=== PATIENT | female | born 1975 | race Caucasian/White ===

== ENCOUNTER 2020-01-23 07:56 | Emergency (ER) | payer MEDICAID, SELFPAY ==
[2020-01-23 08:03] VITALS: BP 201/122; PULSE 113; RESP 19; TEMP 36.6; O2SAT 98; BMI 44.9
[2020-01-23 08:19] VITALS: O2SAT 97
--- NOTE | 2020-01-23 08:27 | W.ED.GENADLT ---
HPI - General Adult General: Chief complaint: General Medical Stated complaint: Multiply complaints Time Seen by Provider: 01/23/20 07:58 Source: patient Mode of arrival: ambulatory Limitations: no limitations History of Present Illness: HPI narrative: Patient is a 44-year-old female who presents to the emergency department today with multiple medical complaints. First of all she tells me she has chronic left-sided back/sciatica pain with radiation down into her left lower extremity. She was recently seen by her PCP for this and referred to physical therapy. They are also wanting an outpatient MRI but waiting on preauthorization through her insurance. Patient tells me her pain today is a little worse than her baseline but she has no new acute neurological changes. Secondly patient tells me that she is developing an abscess to her left lower abdomen. She states she has had these pop up several times previously. She is also complaining of a lump to her right breast that is extremely painful. Again recently saw her primary care provider who is referring her for a mammogram which is currently scheduled for next month. Patient states she normally will get lumps that subside on their own monthly but reports this one is raised and painful . Lastly patient has a complaint of dental pain and possible abscess that she has noticed over the past few days. Patient has not seen a dentist in quite a while. Onset (ago): unknown (some complaints chronic; others within the last week or so) Associated symptoms: Deny chest pain, dyspnea, headache(s), malaise, nausea, rash, palpitations, syncope or vomiting Review of Systems Const: Denies: fever, chills, body aches, change in appetite, change in weight, fatigue or malaise Eyes: Denies: change in vision or blurry vision ENMT: Reports: dental pain; Denies: throat pain, enlarged tonsils, painful swallowing, oral sores/lesions or ear pain Card: Denies: chest pain, palpitations, irregular heart rhythm, edema, lightheadedness, syncope, pre-syncope or shortness of breath when lying down Resp: Denies: shortness of breath, productive cough or chest congestion GI: Denies: abdominal pain, nausea or vomiting : Denies: flank pain, difficulty urinating, painful urination, urinary frequency, urinary urgency or urinary hesitancy Musc: Reports: back pain (over L SI); Denies: neck pain Skin/Breast: Reports: sores (reports lesion to L lower abdomen/groin and lump to R breast); Denies: rash or itching Neuro: Denies: headache, numbness in extremities, weakness in extremities or changes in sensation PFSH ED PFSH: Social History Smoking and tobacco status: current every day smoker Physical Exam Const: COMMON NORMALS: no apparent distress, oriented x3, no limitations and alert NUTRITIONAL APPEARANCE: obese morbidly obese HENMT: COMMON NORMALS: normocephalic and head/scalp atraumatic HEAD & SCALP: normocephalic and atraumatic MOUTH: other (pt has decayed lower tooth 26 w/o abscess formation) THROAT: posterior oropharynx normal, tonsils normal and uvula midline Eye: COMMON NORMALS: PERRL, EOMs intact bilaterally and conjunctivae normal CONJUNCTIVA: Yes conjunctivae normal PUPIL: Yes PERRL Neck/C-Spine: COMMON NORMALS: full ROM and no lymphadenopathy Resp: COMMON NORMALS: normal respiratory effort and clear to auscultation bilaterally AUSCULTATION: clear to auscultation bilaterally Cardio: COMMON NORMALS: regular rate and regular rhythm RATE: regular rate RHYTHM: regular rhythm GI: COMMON NORMALS: normal to inspection, nondistended, normoactive bowel sounds, soft to palpation, non-tender, no hepatosplenomegaly and no masses PALPATION: Yes soft and Yes no hepatosplenomegaly Back/Pelvis: THORACIC SPINE/UPPER BACK: Yes normal to inspection and Yes thoracic ROM normal LUMBAR SPINE/LOWER BACK: No lumbar spinal tenderness and Yes straight leg raise negative bilaterally SACROILIAC JOINTS: Yes SI joint(s) abnormal (TTP over L SI) Extremity: COMMON NORMALS: normal to inspection Neuro: COMMON NORMALS: oriented x3 SENSORIUM/ORIENTATION: Yes alert Skin: OTHER: pt has several small 1cm abscesses to abdomen; she has one larger 2cm abscess to left lower abdomen w/o fluctuance or drainage or surrounding cellulitis; pt has a 1cm semi fluctuant abscess to R inferior breast with about 1cm of surrounding redness that is tender to the touch-none of these felt to be overly amenable to I&D at this time Course Vital Signs: Vital signs: Vital Signs Temperature 97.9 F 01/23/20 08:03 Pulse Rate 113 H 01/23/20 08:03 Respiratory Rate 19 H 01/23/20 08:03 Blood Pressure 201/122 01/23/20 08:03 Pulse Oximetry 97 01/23/20 08:19 Discharge Plan Discharge Patient Disposition: Home, Self-Care Clinical Impression: Abscess of multiple sites, Pain, dental, Dental caries Chronic left-sided low back pain with sciatica Qualifiers: Sciatica laterality: sciatica of left side Qualified Code(s): M54.42 - Lumbago with sciatica, left side Condition: Stable Prescriptions: New Bactrim DS 800-160 mg tablet 1 tab PO BID 7 Days Qty: 14 RF: 0 Discharge Orders: Discharge Order (Routine); Ordered 01/23/20 Ordered By: Diane Potts Referrals: Ti Hurd, KEYBOARD INSTRUMENT REPAIRER-C [Primary Care Provider] - Elmo Lee DO [Family Provider] - Discharge Diet: Usual diet Discharge Activity: Resume usual activity Patient Instructions: Dental Caries (ED), Abscess (ED), Sciatica, Staphylococcus Aureus Infection Discharge Date/Time: 01/23/20 09:08 Coding Level of Care Code ED 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
[2020-01-23] MEDS: ketorolac 60 mg/2 mL INJ IM (08:54)
[2020-01-23] MEDS: orphenadrine 30 mg/mL Inj 2 mL 60 MG IM (08:54)
[2020-01-23 09:08] VITALS: BP 168/98; PULSE 85; RESP 17; O2SAT 97
== END 2020-01-23 09:08 | disposition home or self-care (01) ==
PROVIDERS: Emergency Provider Physician Assistant; Family Provider Internal Medicine; PCP Nurse Practitioner
DX: L02.211 Cutaneous abscess of abdominal wall (principal); N61.1 Abscess of the breast and nipple; K02.9 Dental caries, unspecified; M54.42 Lumbago with sciatica, left side; E66.09 Other obesity due to excess calories; Z68.41 Body mass index [BMI] 40.0-44.9, adult; F17.200 Nicotine dependence, unspecified, uncomplicated
CPT/HCPCS: 12345; 96372; 99281; 99283; J1885; J2360

== ENCOUNTER 2020-02-27 14:50 | Outpatient (RCR) | payer MEDICAID, SELFPAY | END 2020-03-15 23:59 | disposition home or self-care (01) | LOC: SPT 14:50 | PROVIDERS: Family Provider Internal Medicine; PCP Internal Medicine; Referring Provider Internal Medicine; Visit Provider Internal Medicine | DX: G89.29 Other chronic pain (principal); M54.16 Radiculopathy, lumbar region | CPT/HCPCS: 97110; 97161; 97530 ==

== ENCOUNTER 2020-03-16 06:00 | Outpatient (RCR) | payer MEDICAID, SELFPAY | END 2020-04-15 23:59 | disposition home or self-care (01) | LOC: SPT 06:00 | PROVIDERS: Family Provider Internal Medicine; PCP Internal Medicine; Referring Provider Internal Medicine; Visit Provider Internal Medicine | DX: M51.17 Intervertebral disc disorders with radiculopathy, lumbosacral region (principal) | CPT/HCPCS: 97110 ==

== ENCOUNTER 2020-04-02 13:56 | Outpatient (CLI) | payer MEDICAID, SELFPAY ==
--- NOTE | 2020-04-02 14:05 | MM_ITS ---
WS: [id number] BILATERAL DIGITAL SCREENING MAMMOGRAPHY WITH CAD CLINICAL INFORMATION: SCREENING HISTORY: Screening mammogram. No current complaints. COMPARISON: None. TECHNIQUE: Bilateral CC and MLO views. FINDINGS: Scattered fibroglandular densities bilaterally. No suspicious focal mass, asymmetry, calcifications, or architectural distortion. No evidence of malignancy. MM/[place] [id number] IMPRESSION: BI-RADS: 1-Negative FOLLOW UP: 1 Year Follow-up Recommend return to annual screening mammography.
== END 2020-04-02 13:57 | disposition home or self-care (01) ==
LOC: RADSHAW 13:58
PROVIDERS: PCP Internal Medicine; Visit Provider Internal Medicine
DX: Z12.31 Encounter for screening mammogram for malignant neoplasm of breast (principal)
CPT/HCPCS: 77067; 99204

== ENCOUNTER 2020-04-11 12:57 | Outpatient (CLI) | payer MEDICAID, SELFPAY ==
--- NOTE | 2020-04-11 13:02 | USCV_ITS ---
Marbella Lynch Age: 44 Gender: F : 1975 Exam Date: 04/11/2020 13:41 Ordering Phys: Elmo Lee DO Technologist: Maikel Hicks [place] [facility] [place]: PAIN,SWELLING HISTORY: Lower extremity pain. PROCEDURES: Venous duplex imaging was performed in only the right lower extremity. The following venous structures were evaluated: common femoral vein, profunda vein, proximal portion of the greater saphenous vein, superficial femoral vein, and the popliteal vein. In addition, the posterior tibial and peroneal trunk were evaluated. Serial compression, augmentation maneuvers, and spectral Doppler flow evaluation were performed. FINDINGS: Normal 2-D Doppler and augmentation and compressibility throughout the lower extremity venous structures. Additional imaging through the proximal calf veins also reveals no thrombus. Limited evaluation of the greater saphenous vein is patent with no thrombus. CONCLUSIONS No DVT right lower extremity. Dr. Chanelle Resendez DO (Electronically Signed) Final Date: 12 Apr 2020 07:47 S
== END 2020-04-11 12:58 | disposition home or self-care (01) ==
PROVIDERS: PCP Internal Medicine; Visit Provider Internal Medicine
DX: M54.16 Radiculopathy, lumbar region (principal); M79.605 Pain in left leg; M79.604 Pain in right leg
CPT/HCPCS: 93971

== ENCOUNTER 2020-06-18 07:54 | Outpatient (CLI) | payer MEDICAID, SELFPAY ==
--- NOTE | 2020-06-18 07:57 | MR_ITS ---
WS: [id number] MRI LUMBAR SPINE NONCONTRAST HISTORY: LUMBAR BACK PAIN W/RADICULOPATHY COMPARISON: 10/15/[address] lumbar spine 05/28/2019 TECHNIQUE: Sagittal and axial multisequence imaging is submitted. Central shallow disc protrusion at C5-6 with mild contact on the cord. Mild increase in thoracic kyph osis. Normal lumbar alignment. Very minimal concave deformity superior endplate of T12. No marrow edema. Sm all Schmorl's node T11. Disc spaces and vertebral body heights are well-preserved. Conus terminates normally at L1-2 disc level. L1-L2: Normal. L2-L3: Normal. L3-L4: Mild annular disc bulging and mild facet and ligamentum flavum arthritis. Disc protrusion encr oaching into the LEFT foramen. Contact on the L3 nerve root. L4-L5: Mild annular disc bulging with ligamentum flavum hypertrophy and facet arthritis. Mild narrowi ng of the central canal and LEFT foramen. L5-S1: Small central disc protrusion. No significant stenosis. Paraspinal soft tissues are normal. MR/MR lumbar spine wo con* [id number] IMPRESSION: 1. No acute fractures. 2. Small LEFT foraminal disc protrusion at L3-4 with contact on the L3 nerve r oot. Increased in size since the prior MRI. 3. Mild central and LEFT foraminal narrowing at L4-5.
== END 2020-06-18 07:55 | disposition home or self-care (01) ==
LOC: RADSHAW 07:55
PROVIDERS: PCP Internal Medicine; Visit Provider Internal Medicine
DX: M54.16 Radiculopathy, lumbar region (principal); M51.26 Other intervertebral disc displacement, lumbar region
CPT/HCPCS: 72148

== ENCOUNTER → 2020-08-16 13:34 | Outpatient (BNVA) | payer MEDICAID, SELFPAY | PROVIDERS: PCP Internal Medicine; Referring Provider Internal Medicine; Visit Provider Specialist | DX: G56.03 Carpal tunnel syndrome, bilateral upper limbs (principal) | CPT/HCPCS: 95910 ==

== ENCOUNTER 2020-09-05 15:23 | Emergency (ER) | payer MEDICAID, SELFPAY ==
[2020-09-05 15:52] VITALS: BP 172/93; PULSE 110; RESP 18; TEMP 37; O2SAT 98; BMI 44.1
--- NOTE | 2020-09-05 16:54 | ED_ITS ---
HPI - Back Pain/Injury General: Chief Complaint: Back Pain/Injury Stated Complaint: back pain Time Seen by Provider: 09/05/20 16:36 History of Present Illness: HPI Narrative: 44-year-old female patient presents to the emergency department with chronic back pain. She reports back pain is worsening. She reports herniated disc in the lower back, states needs injections but insurance company would not approve procedure. States has Flexeril and Tylenol at home and is not helping with pain. She denies leg weakness, urinary or bowel incontinence. She denies recent trauma or falls MD elicited complaint: back pain Pertinent past history: prior back pain Onset (ago): day(s) (Worse today) Timing: constant and progressively worsening Severity: moderate Pain scale (0-10): 8 Quality: sharp, stabbing and aching Location: lumbar spine Radiation: buttocks (Left) and left upper leg Exacerbating factors: movement and walking Relieving factors: other (Resting) Context: while lifting, turning/twisting and bending Associated symptoms: Reports no associated symptoms; Deny abdominal pain, chills, dysuria, fever(s), nausea or vomiting Treatments prior to arrival: cold therapy, heat therapy and acetaminophen Work related injury: No Review of Systems General: Reports: 10 or more systems reviewed and unremarkable except in HPI and below Const: Denies: fever(s), chills or diaphoresis Eyes: Denies: blurry vision or eye redness ENMT: Denies: throat pain, dental pain or disequilibrium Card: Denies: chest pain, palpitations or irregular heart rhythm Resp: Denies: dyspnea, productive cough, non-productive cough or wheezing GI: Denies: abdominal pain, nausea or vomiting : Denies: difficulty voiding or dysuria Musc: Reports: back pain and extremity pain (Left posterior hip to the left upper leg); Denies: neck pain Skin/Breast: Denies: rash or pruritus Neuro: Denies: headache(s), weakness in extremities or behavioral changes Psych: Denies: anxiety or depression Alexis/Lymph: Denies: easy bruising PFSH ED PFSH: Social History (Updated 04/02/20 @ 09:15 by Hany Gonzalez LPN) Smoking and tobacco status: current every day smoker cigarettes Packs smoked per day: 1 Years cigarettes smoked: 20 Quit status (tobacco): has tried quititng Number of times tried to quit tobacco: 5 Second hand smoke exposure: No Smoking risk assessment/counseling performed?: No Current gender identity: Female Physical Exam Const: COMMON NORMALS: no acute distress, patient oriented x3, healthy appearing and alert GENERAL APPEARANCE: cooperative, comfortable and well hydrated ORIENTATION/CONSCIOUSNESS: Yes oriented to person, Yes oriented to place and Yes oriented to time HENMT: COMMON NORMALS: normocephalic, Normal external nose present and moist oral mucous membranes HEAD & SCALP: normocephalic NOSE: Normal external nose present Eye: COMMON NORMALS: Equal, round and reactive pupils present and EOMs intact bilaterally GENERAL EYE: appearance normal, both eyes and all related structures PUPIL: Yes Equal, round and reactive pupils present Neck/C-Spine: COMMON NORMALS: full ROM and no lymphadenopathy GENERAL: Yes normal visual inspection and Yes trachea midline CERVICAL SPINE: Yes cervical ROM normal Lymph: LYMPHATIC: no lymphadenopathy noted Chest: COMMONS NORMALS: normal inspection of the chest Resp: COMMON NORMALS: normal respiratory effort and clear to auscultation bilaterally AUSCULTATION: clear to auscultation bilaterally Cardio: COMMON NORMALS: regular rhythm, S1 normal heart sound present and S2 normal heart sound present RHYTHM: regular rhythm HEART SOUNDS: S1 normal heart sound present and S2 normal heart sound present GI: COMMON NORMALS: Soft to palpation and non-tender INSPECTION: Yes normal to inspection PALPATION: Yes Soft to palpation : COMMON NORMALS: Yes no CVA tenderness BLADDER/KIDNEY EXAM: Yes no CVA tenderness Back/Pelvis: COMMON NORMALS: no CVA tenderness THORACIC SPINE/UPPER BACK: Yes normal to inspection, No thoracic spinal tenderness and No paraspinal muscle spasm LUMBAR SPINE/LOWER BACK: Yes ROM limited, Yes paraspinal muscle tenderness Lumbar paraspinal muscle tenderness: left and Yes straight leg raise positive left SACROILIAC JOINTS: Yes SI joint(s) abnormal SI joint details: tender to palpation (lt), pain elicited by compression of iliac crest maneuver (left) and pain elicited by passive hyperextension of lower extremity (left) Extremity: COMMON NORMALS: normal to inspection and capillary refill normal GENERAL: Yes normal exam except as noted Neuro: COMMON NORMALS: patient oriented x3 and no focal motor deficits SENSORIUM/ORIENTATION: Yes alert, Yes oriented to person, Yes oriented to place and Yes oriented to time SPEECH: speech normal MOTOR EXAM: 5/5 motor strength present throughout Psych: COMMON NORMALS: mental status grossly normal, Normal thought process present and cooperative ACTIVITY/MOTOR BEHAVIOR: Yes appropriate eye contact THOUGHT PROCESS: Normal thought process present Skin: COMMON NORMALS: no rashes or lesions noted and turgor normal GENERAL SKIN EXAM: no rashes or lesions noted and turgor normal Course ED course: MRI from 06/18/2020 reviewed, she does not report increased pain. She will be prescribed iron and Toradol with Robaxin, and methylprednisone. Advised not to take Robaxin with Flexeril as the Flexeril is not working. She was advised to continue cool compresses alternate with warm moist heat, follow- up with her primary care provider, verbalized understanding. Vital Signs: Vital signs: Vital Signs Temperature 98.6 F 09/05/20 15:52 Pulse Rate 110 H 09/05/20 15:52 Respiratory Rate 18 09/05/20 15:52 Blood Pressure 172/93 09/05/20 15:52 Pulse Oximetry 98 09/05/20 15:52 MDM - Back Pain/Injury Imaging Data^: Other Imaging: Radiologist's impression: [facility] [address] [place] [address] Magnetic Resonance Report Signed Patient: Marbella Lynch #: [id number] : 1975Acct#:[id number] Age/Sex: 44 / FADM Date: 06/18/20 Loc: RADAWRoom/Bed: Attending Dr: Elmo Lee DO Ordering Provider/Ordering MD: Elmo Lee DO Date of Service: 06/18/20 Procedure(s): MR lumbar spine wo con* [id number] Accession Number(s): [id number] Report Number: [id number] WS: [id number] MRI LUMBAR SPINE NONCONTRAST HISTORY: LUMBAR BACK PAIN W/RADICULOPATHY COMPARISON: 10/15/[address] lumbar spine 05/28/2019 TECHNIQUE: Sagittal and axial multisequence imaging is submitted. Central shallow disc protrusion at C5-6 with mild contact on the cord. Mild increase in thoracic kyphosis. Normal lumbar alignment. Very minimal concave deformity superior endplate of T12. No marrow edema. Small Schmorl's node T11. Disc spaces and vertebral body heights are well-preserved. Conus terminates normally at L1-2 disc level. L1-L2: Normal. L2-L3: Normal. L3-L4: Mild annular disc bulging and mild facet and ligamentum flavum arthritis. Disc protrusion encroaching into the LEFT foramen. Contact on the L3 nerve root. L4-L5: Mild annular disc bulging with ligamentum flavum hypertrophy and facet arthritis. Mild narrowing of the central canal and LEFT foramen. L5-S1: Small central disc protrusion. No significant stenosis. Paraspinal soft tissues are normal. MR/MR lumbar spine wo con* [id number] IMPRESSION: 1. No acute fractures. 2. Small LEFT foraminal disc protrusion at L3-4 with contact on the L3 nerve root. Increased in size since the prior MRI. 3. Mild central and LEFT foraminal narrowing at L4-5. Dictated By:Chanelle Resendez DO Signed By:Chanelle Resendez DOSigned Date/Time:06/18/20906 DD/ Discharge Plan Discharge Patient Disposition: Home Clinical Impression: Back pain Qualifiers: Back pain location: low back pain Chronicity: chronic Back pain laterality: left Sciatica presence: with sciatica Sciatica laterality: sciatica of left side Qualified Code(s): M54.42 - Lumbago with sciatica, left side Condition: Stable Prescriptions: New Medrol (Trey) 4 mg tablets,dose pack See Rx Instructions .ROUTE .COMPLEX Qty: 21 RF: 0 Robaxin-750 750 mg tablet 750 mg PO TID Qty: 14 RF: 0 No Action amlodipine 10 mg tablet 10 mg PO DAILY RF: 0 lisinopril 20 mg tablet 20 mg PO DAILY RF: 0 metformin 500 mg tablet extended release 24 hr 500 mg PO BID RF: 0 omeprazole magnesium [Prilosec OTC] 20 mg tablet,delayed release (DR/EC) 20 mg PO DAILY RF: 0 duloxetine [Cymbalta] 30 mg capsule,delayed release(DR/EC) 30 mg PO DAILY Qty: 30 RF: 1 trazodone 50 mg tablet 100 mg PO .HS Qty: 60 RF: 1 hydroxyzine HCl 50 mg tablet 50 mg PO TID PRN (Reason: anxiety) Qty: 90 RF: 1 Discharge Orders: Discharge Order (Routine); Ordered 09/05/20 Ordered By: Krystle Chinchilla Referrals: Elmo Lee DO [Primary Care Provider] - Discharge Diet: Usual diet Discharge Activity: Limit activity as instructed Patient Instructions: Sciatica (ED), Chronic Back Pain (ED) Activity Restrictions/Additional Instructions: Limit activity, do not lift more than 10 pounds, no bending or twisting at the waist until cleared by your primary care provider Take prednisone as directed Continue cool compresses/warm moist heat as needed for pain Return to the emergency department if you develop urinary or bowel incontinence, inability to feel your left leg You may attempt [id number] use of lidocaine patches, Salonpas Discharge Date/Time: 09/05/20 17:15 Coding Level of Care Code ED Coating Engineer for Raisag Fwd Exam Comprehensive
[2020-09-05] MEDS: ketorolac 60 mg/2 mL INJ IM (17:05)
== END 2020-09-05 17:15 | disposition home or self-care (01) ==
PROVIDERS: Emergency Provider Nurse Practitioner Family; PCP Internal Medicine
DX: M54.42 Lumbago with sciatica, left side (principal); G89.29 Other chronic pain; Z79.84 Long term (current) use of oral hypoglycemic drugs; F17.210 Nicotine dependence, cigarettes, uncomplicated
CPT/HCPCS: 12345; 96372; 99281; 99283; J1885

== ENCOUNTER → 2020-10-20 13:42 | Outpatient (BNVA) | payer MEDICAID, SELFPAY | PROVIDERS: PCP Internal Medicine; Visit Provider Orthopaedic Surgery | DX: G56.03 Carpal tunnel syndrome, bilateral upper limbs (principal); Z01.812 Encounter for preprocedural laboratory examination; Z20.828 Contact with and (suspected) exposure to other viral communicable diseases | CPT/HCPCS: 87635 ==

== ENCOUNTER 2020-10-25 09:05 | Day surgery (SDC) | payer MEDICAID, SELFPAY ==
[2020-10-25 09:17] VITALS: BP 153/97; PULSE 110; RESP 20; TEMP 37.2; O2SAT 97
--- NOTE | 2020-10-25 09:36 | W.PM.OPSUD ---
Surgery/Procedure H&P Update DATE OF PROCEDURE: October 25, 2020 DATE H&P PERFORMED: 10/02/20 PREOP DIAGNOSIS: Right carpal tunnel syndrome PLANNED PROCEDURE: Operation Date: 10/25/20 10:20 Proposed Procedures p right Carpal Tunnel Release 44100 g56.01(Right) - Yaron Gruber MD
--- NOTE | 2020-10-25 09:42 | ANES.PREANE2 ---
Pre-Anesthetic Assessment Pre-Anesthetic Assessment: Height/Weight: Height 1.65 m Weight 120.202 kg Temp Pulse Resp BP Pulse Ox 99 F 110 H 20 H 153/97 97 10/25/20 09:17 10/25/20 09:17 10/25/20 09:17 10/25/20 09:17 10/25/20 09:17 Preop Diagnosis: Right carpal tunnel syndrome Proposed Procedure: Operation Date: 10/25/20 10:20 Proposed Procedures p right Carpal Tunnel Release [id number] g56.01(Right) - Yaron Gruber MD Was Beta Vaughn taken within 24 hours: N/A Last intake: Intake Last Liquid Date 10/25/20 Last Liquid Time 06:00 Last Solid Date 10/24/20 Last Solid Time 22:00 Social: Social History: Tobacco Exam: Pre-Anes Outpt Exam: alert, oriented x 3, clear to auscultation bilaterally and regular rate & rhythm Airway: Submandibular: WNL Cervical ROM: WNL MP: 3 History/ROS: No significant history except as noted Pulmonary: Pulmonary: Sleep apnea (noncompliant) CV/HEM: CV/HEM: HTN : : None reported Hepatic: Hepatic: None reported GI: GI: GERD Metabolic: Metabolic: DM and Morbid obesity Musc/skel: Musc/skel: Fibromyalgia and Lower Back Pain (sciatica) Anesthetic Plan: ASA status: 2 Anesthesia: Anesthesia Evaluation and Regional (specify below) (courtney block) Risk of > 500 ml blood loss (7ml/kg in children): No PFSH Anesthesia PFSH: Social History Smoking and tobacco status: current every day smoker cigarettes Packs smoked per day: 1 Years cigarettes smoked: 20 Quit status (tobacco): has tried quititng Number of times tried to quit tobacco: 5 Second hand smoke exposure: No Smoking risk assessment/counseling performed?: No Current gender identity: Female Data Anesthesia Cardiac Studies: No Data to Display
[2020-10-25] MEDS: sodium chloride 0.9% 1,000 ML 30 ML IV (09:53)
[2020-10-25 10:30] VITALS: BP 111/71; PULSE 101; RESP 18; TEMP 36.8; O2SAT 95
--- NOTE | 2020-10-25 10:31 | PM.OP ---
Operative Report Date of procedure: October 25, 2020 Pre-op Diagnosis: Right carpal tunnel syndrome Post-op diagnosis: same Post-op Findings: Same Procedure Done: Right carpal tunnel release Pathology: none sent Surgeon: Yaron Gruber Anesthesia: Nerve Block (Olvin block) Estimated blood loss (mL): 5 Tourniquet time (min): 29 Findings: No masses or space-occupying lesions were seen within the carpal tunnel Condition: stable Brief History: The patient is a 45-year-old female with right carpal tunnel syndrome. She failed conservative treatment including injections and bracing is admitted for elective right carpal tunnel release Procedure: Patient was taken to the operating room and anesthesia provided by the anesthesia service. She was prepped and draped with the arm exposed. A timeout was performed. A 3 cm long incision was made in line with the fourth ray from the distal edge of the carpal tunnel extending proximally. The subcutaneous fat and palmar fascia was divided with a scalpel blade. Under loupe magnification the ulnar neurovascular bundle was identified distally. A hemostat could be passed under the transverse carpal ligament allowing the distal 25% to be divided. A slotted guide was then passed beneath the transverse carpal ligament and the middle 50% divided. Blunt scissors were then passed over the guide freeing the proximal ligament. The tourniquet was deflated. Hemostasis provided with electrocautery. Wound edges were infiltrated with 10 cc of a half percent Marcaine solution. Skin edges were reapproximated with 3-0 Prolene. Sterile dressings were applied. The patient was taken to the recovery room in stable condition
[2020-10-25] MEDS: HYDROcodone-acetaminophen 5-325 mg Tablet 1 TAB PO (10:58)
[2020-10-25 11:03] VITALS: BP 118/70; PULSE 92; RESP 18; TEMP 36.7; O2SAT 96
== END 2020-10-25 11:15 | disposition home or self-care (01) ==
PROVIDERS: PCP Internal Medicine; Visit Provider Orthopaedic Surgery
PROC: (CPT 64721; principal; 2020-10-25 10:20)
DX: G56.01 Carpal tunnel syndrome, right upper limb (principal); G47.30 Sleep apnea, unspecified; I10 Essential (primary) hypertension; K21.9 Gastro-esophageal reflux disease without esophagitis; E11.9 Type 2 diabetes mellitus without complications; E66.01 Morbid (severe) obesity due to excess calories; Z68.41 Body mass index [BMI] 40.0-44.9, adult; M79.7 Fibromyalgia; F17.210 Nicotine dependence, cigarettes, uncomplicated; Z79.84 Long term (current) use of oral hypoglycemic drugs
CPT/HCPCS: 64721; 12345; J0690; J2405; J2704; J3010; J3490; J7030

== ENCOUNTER → 2021-07-17 09:37 | Outpatient (BNVA) | payer MEDICAID, SELFPAY | PROVIDERS: PCP Internal Medicine; Visit Provider Orthopaedic Surgery | DX: M79.641 Pain in right hand (principal) | CPT/HCPCS: 73140 ==

== ENCOUNTER → 2021-10-24 09:50 | Outpatient (BNVA) | payer MEDICAID, SELFPAY | PROVIDERS: PCP Internal Medicine; Visit Provider Orthopaedic Surgery | DX: Z01.812 Encounter for preprocedural laboratory examination (principal); Z20.822 Contact with and (suspected) exposure to COVID-19 | CPT/HCPCS: 87635 ==

== ENCOUNTER 2021-10-31 06:41 | Day surgery (SDC) | payer MEDICAID, SELFPAY ==
[2021-10-30 12:20] VITALS: BMI 44.9
[2021-10-31 07:10] VITALS: BP 184/97; PULSE 111; RESP 20; TEMP 36.7; O2SAT 98
[2021-10-31 07:23] LABS: Glucose Point of Care 275 mg/dL (70-110)
--- NOTE | 2021-10-31 07:33 | ANES.PREANE2 ---
Pre-Anesthetic Assessment Pre-Anesthetic Assessment: Height/Weight: Height 1.65 m Weight 122.47 kg Temp Pulse Resp BP Pulse Ox 98.1 F 111 H 20 H 184/97 98 10/31/21 07:10 10/31/21 07:10 10/31/21 07:10 10/31/21 07:10 10/31/21 07:10 Preop Diagnosis: Trigger Thumb, right Proposed Procedure: Operation Date: 10/31/21 08:15 Proposed Procedures p Right Thumb Trigger Finger Release [id number] M65.319(Right) - Yaron Gruber MD Was Beta Vaughn taken within 24 hours: N/A Was Clonidine taken within 24 hours: N/A Last intake: Intake Last Liquid Date 10/30/21 Last Liquid Time 11:55 Last Solid Date 10/30/21 Last Solid Time 23:00 Social: Social History: Tobacco and No alcohol Exam: Pre-Anes Outpt Exam: alert, oriented x 3 and regular rate & rhythm Airway: Submandibular: WNL Cervical ROM: WNL MP: 2 Dentition: Chipped Additional comments: Poor dentition, missing several Pulmonary: Pulmonary: COPD CV/HEM: CV/HEM: HTN GI: GI: GERD Metabolic: Metabolic: DM and Morbid obesity Neuropsych: Neuropsych: Anxiety and Depression Anesthetic Plan: ASA status: 3 Anesthesia: MAC and Regional (specify below) (Olvin acosta) Risk of > 500 ml blood loss (7ml/kg in children): No PFSH Anesthesia PFSH: Social History Quit status (tobacco): has tried quititng Number of times tried to quit tobacco: 5 Second hand smoke exposure: No Smoking risk assessment/counseling performed?: No Current gender identity: Female Data Anesthesia Other Labs: Laboratory Results - last 48 hr 10/31/21 07:19 POC Glucose 275 H Cardiac Studies: No Data to Display
[2021-10-31] MEDS: sodium chloride 0.9% 1,000 ML 30 ML IV (07:36)
--- NOTE | 2021-10-31 08:12 | W.PM.OPSUD ---
Surgery/Procedure H&P Update DATE OF PROCEDURE: October 31, 2021 DATE H&P PERFORMED: 10/09/21 PREOP DIAGNOSIS: Trigger Thumb, right PLANNED PROCEDURE: Operation Date: 10/31/21 08:15 Proposed Procedures p Right Thumb Trigger Finger Release [id number] M65.319(Right) - Yaron Grbuer MD
[2021-10-31 08:58] VITALS: BP 172/88; PULSE 97; RESP 16; TEMP 36.3; O2SAT 98
[2021-10-31 09:03] VITALS: BP 163/93; PULSE 97; RESP 16; O2SAT 94
--- NOTE | 2021-10-31 09:04 | PM.OP ---
Operative Report Date of procedure: October 31, 2021 Pre-op Diagnosis: Trigger Thumb, right Post-op diagnosis: same Post-op Findings: Same Procedure Done: Right trigger thumb release Pathology: none sent Surgeon: Yaron Gurber Anesthesia: Nerve Block ([place] block) Tourniquet time (min): 20 Condition: stable Disposition: PACU Procedure: The patient's hand was prepped in the usual fashion. A timeout was performed. I transverse incision was made over the level of a 1 dmitry of the right thumb in the palm over a distance of approximately a centimeter and a half. Under loupe magnification blunt dissection was accomplished down to the A1 dmitry. With adequate visualization a scalpel was used to divide the central 8 mm of that structure. Blunt scissors were then used to extend the release approximately 5 mm proximally and 5 mm distally. Tendons were pulled the road and inspected to assure there health. Skin edges were infiltrated with 4 cc of 0.5%n Marcaine. The skin edges were closed with 3-0 Prolene compressive dressings were applied.
[2021-10-31 09:08] VITALS: BP 161/93; PULSE 101; RESP 18; TEMP 36.3; O2SAT 98
[2021-10-31 09:38] VITALS: BP 165/84; PULSE 98; RESP 18; TEMP 36.6; O2SAT 96
[2021-10-31] MEDS: HYDROcodone-acetaminophen 5-325 mg Tablet 1 TAB PO (09:40)
--- NOTE | 2021-10-31 14:17 | ANE.PACU2 ---
Inpatient post-anesthesia follow up: Airway intact: Yes Vital signs: Temperature 97.9 F Pulse Rate 98 Respiratory Rate 18 Blood Pressure 165/84 Pulse Oximetry 96 Oxygen Delivery Me thod Room Air Oxygen Flow Rate 10 Fraction of Inspir ed Oxygen Hydration adequate: Yes Nausea and vomiting: No Pain level: 2 Mental status: Baseline
== END 2021-10-31 09:45 | disposition home or self-care (01) ==
PROVIDERS: PCP Internal Medicine; Visit Provider Orthopaedic Surgery
PROC: (CPT 26055; principal; 2021-10-31 08:05)
DX: M65.311 Trigger thumb, right thumb (principal); J44.9 Chronic obstructive pulmonary disease, unspecified; I10 Essential (primary) hypertension; K21.9 Gastro-esophageal reflux disease without esophagitis; E11.9 Type 2 diabetes mellitus without complications; E66.01 Morbid (severe) obesity due to excess calories; Z68.41 Body mass index [BMI] 40.0-44.9, adult; F17.210 Nicotine dependence, cigarettes, uncomplicated
CPT/HCPCS: 26055; 36416; 82962; J0690; J2250; J2704; J3010; J3490; J7030

== ENCOUNTER 2023-01-16 19:30 | Emergency (ER) | payer MEDICAID, SELFPAY ==
[2023-01-16 19:31] VITALS: BP 134/85; PULSE 101; RESP 22; TEMP 36.4; O2SAT 99; BMI 39.9
[2023-01-16 19:41] VITALS: BP 134/85; PULSE 92; RESP 26; O2SAT 97
--- NOTE | 2023-01-16 19:42 | ECG_ITS ---
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 Measurements Intervals [place] Rate: 91 P: 42 MD: 122 QRS: 75 QRSD: 88 T: 68 QT: 357 QTc: 441 Interpretive Statements SINUS RHYTHM Compared to ECG 08/24/2019 08:29:45 Sinus tachycardia no longer present Electronically Signed On 01-16-2023 21:47:45 EXPERIMENTAL MACHINING LAB MANAGER by Carolynn Sandoval M.D. [id number]
--- NOTE | 2023-01-16 19:43 | XRR_ITS ---
PROCEDURE INFORMATION: Exam: XR Chest Exam date and time: 01/16/2023 7:47 PM Age: 47 years old Clinical indication: Shortness of breath; Additional info: Chest pain TECHNIQUE: Imaging protocol: Radiologic exam of the chest. Views: 1 view. COMPARISON: CR XR chest 1V [id number] 08/24/2019 8:17 AM FINDINGS: Lungs: Unremarkable. No consolidation. Pleural spaces: Unremarkable. No pleural effusion. No pneumothorax. Heart/Mediastinum: Unremarkable. No cardiomegaly. Bones/joints: Unremarkable. XR/XR chest 1V portable [id number] IMPRESSION: No acute findings.
[2023-01-16 19:55] LABS: Basophils # 0.2 10^3/uL (0.0-0.1); Eosinophils # 0.4 10^3/uL (0.0-0.8); Eosinophils % 2.1 %; Hematocrit 46.1 % (37.0-47.0); Hemoglobin 15.6 g/dL (11.5-15.3); Lymphocytes # 4.4 10^3/uL (0.8-4.8); Lymphocytes % 26.9 %; Mean Corpuscular HGB Conc 33.8 g/dL (30.0-36.0); Mean Corpuscular Hemoglobin 29.6 pg (28.0-34.0); Mean Corpuscular Volume 87.5 fl (81-99); Mean Platelet Volume 13.4 fL (7.4-10.4); Monocytes # 0.8 10^3/uL (0.2-0.9); Monocytes % 4.8 %; Neutrophils # 10.53 10^3/uL (1.8-7.7); Neutrophils % 64.8 %; Nucleated Red Blood Cells % 0 %; Platelet Count 273 10^3/cmm (130-400); Red Blood Count 5.27 10^6/uL (4.1-5.3); Red Cell Distribution Width 13.9 % (12.1-15.1); White Blood Count 16.3 10^3/uL (4.0-10.0)
[2023-01-16] MEDS: LORazepam 2 mg/mL INJ 1 mL IVP (19:59)
[2023-01-16 20:00] VITALS: BP 144/83; PULSE 89; RESP 25; O2SAT 100
[2023-01-16 20:07] LABS: Troponin(5th) Baseline 10 ng/L (0-10)
[2023-01-16 20:09] LABS: Alanine Aminotransferase 28 U/L (0-33); Albumin Level 4.7 g/dL (3.5-5.2); Alkaline Phosphatase 162 U/L (35-105); Aspartate Amino Transferase 21 U/L (0-32); Blood Urea Nitrogen 7 mg/dL (6-20); Calcium 10.4 mg/dL (8.5-10.5); Carbon Dioxide 22 mmol/L (22-29); Chloride 97 mmol/L (98-107); Creatinine Clr Calc Pharmacy 143.7919; Globulin 2.9 g/dL (1.3-4.6); Glomerular Filtration Rate 107.6 mL/min (90-130); Glucose 133 mg/dL (65-115); Lipase 25 U/L (13-60); Osmolality Calculated 288 mOsm/kg (285-295); Sodium 139 mmol/L (136-145); Total Bilirubin 0.4 mg/dL (0.15-1.2); Total Protein 7.6 g/dL (6.6-8.7)
--- NOTE | 2023-01-16 20:13 | ED_ITS ---
HPI - Anxiety General: Chief Complaint: Anxiety Stated Complaint: CP Time Seen by Provider: 01/16/23 19:42 Source: patient and family Mode of arrival: EMS History of Present Illness: 47-year-old female who comes in complaining of c hest pain. The pain started 1 hour prior to arrival. She describes it as feeling like there is an elephant sitting on her chest. She also has associated shortness of breath and nausea. She has a history of anxiety and has been under more stress. She states this feels different than her typical anxiety attacks. She was given aspirin and nitro by EMS with some improvement but now complains of a severe headache as well as back pain which she has had in the past. No prior cardiac history. She has a history of hypertension, diabetes. She also has a history of acid reflux. No prior cardiac history. Currently she rates her pain 8 out of 10, she is crying and extremely anxious, hyperventilating. Review of Systems Narrative: See HPI PFSH ED PFSH: Social History Quit status (tobacco): has tried quititng Number of times tried to quit tobacco: 5 Second hand smoke exposure: No Smoking risk assessment/counseling performed?: No Current gender identity: Female Physical Exam Const: OTHER: Patient is extremely anxious, crying, hyperventilating HENMT: COMMON NORMALS: normocephalic, atraumatic and moist oral mucous membranes HEAD & SCALP: normocephalic and atraumatic Neck/C-Spine: COMMON NORMALS: supple Resp: OTHER: Tachypneic, breath sounds are clear bilaterally. Cardio: OTHER: Tachycardic, normal heart tones GI: OTHER: Mild tenderness in the left upper quadrant. No rebound or guarding. Extremity: OTHER: No swelling or tenderness, negative Homans Course ED course: Patient's been evaluated in the emergency department. She is was given Ativan 2 mg IV with resolution of her chest pain. She was still complaining of a headache and back pain so she subsequently was given IV morphine for the headache that she got from getting the nitro. Her EKG shows no acute ischemic changes. Her initial troponin is 10. She does have a slightly elevated white blood cell count of 16.3. No infiltrate on her chest x-ray. Alkaline phosphatase is slightly elevated at 162. The patient has had a previous cholecystectomy. AST, ALT, bilirubin and lipase are all normal. At this time the patient is resting comfortably. Reevaluation(s): Reevaluation #1: Patient is resting comfortably. Pain is resolved. Waiting results of 2-hour troponin. Time: 21:41 Reevaluation #2: Repeat 2-hour troponin is 9.81 essentially unchanged from the initial troponin of 10. Patient is resting comfortably. Suspect that her pain was primarily related to anxiety. Certainly there may have been a component of acid reflux. I am going to have her increase her Prilosec to twice daily. I am giving her Ativan 1 mg to take 1 every 6-8 hours as needed for severe anxiety. I recommended she contact her primary care doctor next week for follow-up in regards to ongoing anxiety medication management. She has been instructed to return to the ER if her symptoms return and worsen Vital Signs: Vital signs: Vital Signs Temperature 97.5 F L 01/16/23 19:31 Pulse Rate 89 01/16/23 20:00 Respiratory Rate 14 01/16/23 20:22 Blood Pressure 144/83 01/16/23 20:00 Pulse Oximetry 100 01/16/23 20:00 MDM - Anxiety Medical Decision Making 47-year-old female with history of diabetes and hypertension who presents with chest pain. Upon arrival, she is extremely anxious, hyperventilating. She was given nitro by EMS which helped her chest pain to some degree. Upon arrival here, she is complaining of chest pain back pain and a headache. Differential includes anxiety, acid reflux, angina, chest wall pain, esophageal spasm, pancreatitis Medical Records I reviewed the patient's medical records. Lab Data I reviewed the patient's lab results. 01/16/23 19:43 01/16/23 19:43 Radiology Impressions Chest X-Ray 01/16/23 19:43 IMPRESSION: No acute findings. Laboratory Results WBC 16.3 10^3/uL (4.0-10.0) H 01/16/23 19:43 RBC 5.27 10^6/uL (4.1-5.3) 01/16/23 19:43 Hgb 15.6 g/dL (11.5-15.3) H 01/16/23 19:43 Hct 46.1 % (37.0-47.0) 01/16/23 19:43 MCV 87.5 fl (81-99) 01/16/23 19:43 MCH 29.6 pg (28.0-34.0) 01/16/23 19:43 MCHC 33.8 g/dL (30.0-36.0) 01/16/23 19:43 RDW 13.9 % (12.1-15.1) 01/16/23 19:43 Plt Count 273 10^3/cmm (130-400) 01/16/23 19:43 MPV 13.4 fL (7.4-10.4) H 01/16/23 19:43 Neut % (Auto) 64.8 % 01/16/23 19:43 Lymph % (Auto) 26.9 % 01/16/23 19:43 Petroleum % (Auto) 4.8 % 01/16/23 19:43 Eos % (Auto) 2.1 % 01/16/23 19:43 Baso % (Auto) 1.0 % 01/16/23 19:43 Neut # (Auto) 10.53 10^3/uL (1.8-7.7) H 01/16/23 19:43 Lymph # (Auto) 4.4 10^3/uL (0.8-4.8) 01/16/23 19:43 Petroleum # (Auto) 0.8 10^3/uL (0.2-0.9) 01/16/23 19:43 Eos # (Auto) 0.4 10^3/uL (0.0-0.8) 01/16/23 19:43 Baso # (Auto) 0.2 10^3/uL (0.0-0.1) H 01/16/23 19:43 Nucleated RBC % (auto) 0 % 01/16/23 19:43 Nucleated RBCs # 0.0 /100WBC 01/16/23 19:43 Sodium 139 mmol/L (136-145) 01/16/23 19:43 Potassium 4.0 mmol/L (3.5-5.1) 01/16/23 19:43 Chloride 97 mmol/L (98-107) L 01/16/23 19:43 Carbon Dioxide 22 mmol/L (22-29) 01/16/23 19:43 Anion Gap 24.0 (5-19) H 01/16/23 19:43 BUN 7 mg/dL (6-20) 01/16/23 19:43 Creatinine 0.6 mg/dL (0.5-0.9) 01/16/23 19:43 GFR Calculation 107.6 mL/min (90-130) 01/16/23 19:43 Glucose 133 mg/dL (65-115) H 01/16/23 19:43 Calculated Osmolality 288 mOsm/kg (285-295) 01/16/23 19:43 Calcium 10.4 mg/dL (8.5-10.5) 01/16/23 19:43 Total Bilirubin 0.4 mg/dL (0.15-1.2) 01/16/23 19:43 AST 21 U/L (0-32) 01/16/23 19:43 ALT 28 U/L (0-33) 01/16/23 19:43 Alkaline Phosphatase 162 U/L (35-105) H 01/16/23 19:43 Troponin T Baseline 10 ng/L (0-10) 01/16/23 19:43 Troponin T 120 Minute 9.81 ng/L (0-10) 01/16/23 21:04 Total Protein 7.6 g/dL (6.6-8.7) 01/16/23 19:43 Albumin 4.7 g/dL (3.5-5.2) 01/16/23 19:43 Globulin 2.9 g/dL (1.3-4.6) 01/16/23 19:43 Lipase 25 U/L (13-60) 01/16/23 19:43 EKG Data EKG 1: I personally reviewed and interpreted this EKG as follows: EKG interpretation date: 01/16/23 EKG interpretation time: 19:30 Ischemic changes: other (No ST segment elevation or depression. No acute ischemic changes normal-appearing EKG) Interpretation: Chest X-Ray 01/16/23 19:43 IMPRESSION: No acute findings. Other EKG comments: Chest X-Ray 01/16/23 19:43 IMPRESSION: No acute findings. EKG 2: I personally reviewed and interpreted this EKG as follows: EKG interpretation date: 01/16/23 EKG interpretation time: 21:51 Ischemic changes: other (Normal EKG, no acute ST segment elevation or depression) Interpretation: Chest X-Ray 01/16/23 19:43 IMPRESSION: No acute findings. Other EKG comments: Chest X-Ray 01/16/23 19:43 IMPRESSION: No acute findings. Discharge Plan Discharge Patient Disposition: Home Clinical Impression: Acute anxiety, Chest pain Condition: Stable Prescriptions: New Ativan 1 mg tablet 1 mg PO Q6H PRN (Reason: anxiety) Qty: 10 0RF No Action gabapentin 100 mg capsule 100 mg PO TID cyclobenzaprine 10 mg tablet 10 mg PO TID PRN (Reason: Pain) hydrocodone-acetaminophen 5-325 mg tablet 1 tab PO Q4H 7 Days Qty: 42 0RF lisinopril 20 mg tablet 20 mg PO DAILY metformin 500 mg tablet extended release 24 hr 500 mg PO BID omeprazole magnesium [Prilosec OTC] 20 mg tablet,delayed release (DR/EC) 20 mg PO DAILY hydrochlorothiazide 25 mg tablet 25 mg PO DAILY bupropion HCl 100 mg tablet 100 mg PO BID Discharge Orders: Discharge ED (Routine); Ordered 01/16/23 Ordered By: Dalia Serrano Referrals: Elmo Lee DO [Physician] - Discharge Diet: Advance as tolerated Discharge Activity: Resume usual activity Patient Instructions: Chest Pain (ED), Anxiety (ED), Opioid Safety, Pain Management Activity Restrictions/Additional Instructions: Increase your Prilosec to twice daily. Take the Ativan every 6-8 hours as needed for anxiety. Continue your other regular medications. Return for symptoms worsen. 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
[2023-01-16 20:22] VITALS: RESP 14
[2023-01-16] MEDS: morphine 4 mg/mL SDV 1 mL IVP (20:22)
--- NOTE | 2023-01-16 21:43 | ECG_ITS ---
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 Measurements Intervals [place] Rate: 90 P: 31 MI: 130 QRS: 61 QRSD: 90 T: 47 QT: 371 QTc: 455 Interpretive Statements SINUS RHYTHM Compared to ECG 01/16/2023 19:42:37 No significant changes Electronically Signed On 01-16-2023 22:01:50 CONTENT COORDINATOR by Carolynn Sandoval M.D. [id number]
[2023-01-16 21:46] LABS: Troponin 5 2HR 9.81 ng/L (0-10)
[2023-01-16 22:00] VITALS: BP 120/84; PULSE 95; RESP 13; O2SAT 95
[2023-01-16] MEDS: ondansetron 2 mg/ML SDV 2 mL 4 MG IVP (22:18)
[2023-01-16 23:49] LABS: Troponin 5 2HR Delta -0.19 ABS# (0-10)
== END 2023-01-16 22:24 | disposition home or self-care (01) ==
PROVIDERS: Emergency Provider Emergency Medicine; PCP Family Medicine
DX: R07.9 Chest pain, unspecified (principal); F41.9 Anxiety disorder, unspecified; Z79.84 Long term (current) use of oral hypoglycemic drugs; E11.9 Type 2 diabetes mellitus without complications; I10 Essential (primary) hypertension
CPT/HCPCS: 36415; 71045; 80053; 83690; 84484; 85025; 93005; 96374; 96375; 99285; J2060; J2270; J2405

== ENCOUNTER 2023-10-19 17:05 | Emergency (ER) | payer MEDICAID, SELFPAY ==
[2023-10-19 17:08] VITALS: BP 131/89; PULSE 89; RESP 18; TEMP 36.6; O2SAT 98; BMI 38.2
--- NOTE | 2023-10-19 17:32 | ED_ITS ---
HPI - General Adult 2 General: Chief complaint: General Medical Stated complaint: body aches Time Seen by Provider: 10/19/23 17:19 Source: patient and EMS Mode of arrival: EMS Limitations: no limitations History of Present Illness: 48-year-old female has a history of fibr omyalgia states she had no work yesterday bring up [employer] stuff thinks she overdone it because she been having severe pain yesterday and today. States she hurts all over when asked where her pain is worse she states she hurts all over hips back legs arms head. Denies any injuries denies any fever. Associated symptoms: Reports headache(s); Deny chest pain, dyspnea, nausea, rash or vomiting Review of Systems 2 Const: Reports: body aches; Denies: fever(s) or chills Eyes: Denies: eye discomfort ENMT: Denies: throat pain or dental pain Card: Denies: chest pain Resp: Denies: dyspnea GI: Denies: abdominal pain, nausea, vomiting or diarrhea Musc: Reports: neck pain, back pain and extremity pain Skin/Breast: Denies: rash Neuro: Reports: headache(s) PFSH ED 2 PFSH: Social History Quit status (tobacco/nicotine): has tried quititng Number of times tried to quit tobacco: 5 Second hand smoke exposure: No Current gender identity: Female Physical Exam 2 Const: COMMON NORMALS: no acute distress, patient oriented x3 and healthy appearing HENMT: COMMON NORMALS: normocephalic and atraumatic HEAD & SCALP: n ormocephalic and atraumatic Eye: COMMON NORMALS: Equal, round and reactive pupils present and EOMs intact bilaterally PUPIL: Yes Equal, round and reactive pupils present Neck/C-Spine: COMMON NORMALS: full ROM and supple Chest: COMMONS NORMALS: normal inspection of the chest and normal palpation of entire chest wall Resp: COMMON NORMALS: normal respiratory effort, No retractions, No use of accessory muscles and clear to auscultation bilaterally AUSCULTATION: clear to auscultation bilaterally Cardio: COMMON NORMALS: regular rate, regular rhythm and No murmurs present (Cardio) RATE: regular rate RHYTHM: regular rhythm GI: COMMON NORMALS: Normal to inspection, nondistended, normoactive bowel sounds present, Soft to palpation, non-tender and no masses PALPATION: Yes Soft to palpation Extremity: COMMON NORMALS: normal to inspection and full ROM Neuro: COMMON NORMALS: patient oriented x3, moves all extremities and no focal motor deficits Psych: COMMON NORMALS: mental status grossly normal, Normal thought process present and cooperative THOUGHT PROCESS: Normal thought process present Skin: COMMON NORMALS: no rashes or lesions noted and no wounds GENERAL SKIN EXAM: no rashes or lesions noted Course 2 Vital Signs: Vital signs: Vital Signs Temperature 97.9 F 10/19/23 17:08 Pulse Rate 95 10/19/23 18:47 Respiratory Rate 16 10/19/23 18:47 Blood Pressure 112/65 10/19/23 18:47 Pulse Oximetry 96 10/19/23 18:47 Oxygen Delivery Me thod Room Air 10/19/23 17:46 MDM - General Adult Medical Decision Making Patient presents here with myalgias blood work here is normal she feels much improved after pain meds she is stable for discharge she is to follow-up with PCP and return if worsening. Medical Records I reviewed the patient's medical records. Lab Data I reviewed the patient's lab results. 10/19/23 17:40 10/19/23 17:40 Laboratory Results WBC 4.72 10^3/uL (3.29-11.43) 10/19/23 17:40 RBC 4.53 10^6/uL (3.85-5.65) 10/19/23 17:40 Hgb 13.20 g/dL (11.27-16.99) 10/19/23 17:40 Hct 40.1 % (36-47) 10/19/23 17:40 MCV 88.5 fl (85-98) 10/19/23 17:40 MCH 29.1 pg (27-33) 10/19/23 17:40 MCHC 32.9 g/dL (30-55) 10/19/23 17:40 RDW 14.2 % (12.1-15.1) 10/19/23 17:40 Plt Count 213 10^3/cmm (157-399) 10/19/23 17:40 MPV 12.6 fL (7.4-10.4) H 10/19/23 17:40 Neut % (Auto) 76.5 % 10/19/23 17:40 Lymph % (Auto) 7.6 % 10/19/23 17:40 [place] % (Auto) 11.9 % 10/19/23 17:40 Eos % (Auto) 1.5 % 10/19/23 17:40 Baso % (Auto) 1.9 % 10/19/23 17:40 Neut # (Auto) 3.61 10^3/uL (1.8-7.7) 10/19/23 17:40 Lymph # (Auto) 0.4 10^3/uL (0.8-4.8) L 10/19/23 17:40 [place] # (Auto) 0.6 10^3/uL (0.2-0.9) 10/19/23 17:40 Eos # (Auto) 0.1 10^3/uL (0.0-0.8) 10/19/23 17:40 Baso # (Auto) 0.1 10^3/uL (0.0-0.1) 10/19/23 17:40 Nucleated RBC % (auto) 0 % 10/19/23 17:40 Nucleated RBCs # 0.0 /100WBC 10/19/23 17:40 Sodium 136 mmol/L (136-145) 10/19/23 17:40 Potassium 3.8 mmol/L (3.5-5.1) 10/19/23 17:40 Chloride 102 mmol/L (98-107) 10/19/23 17:40 Carbon Dioxide 19 mmol/L (22-29) L 10/19/23 17:40 Anion Gap 18.8 (5-19) 10/19/23 17:40 BUN 8 mg/dL (6-20) 10/19/23 17:40 Creatinine 0.7 mg/dL (0.5-0.9) 10/19/23 17:40 GFR Calculation 89.7 mL/min (90-130) L 10/19/23 17:40 Glucose 162 mg/dL (65-115) H 10/19/23 17:40 Calculated Osmolality 284 mOsm/kg (285-295) L 10/19/23 17:40 Calcium 8.9 mg/dL (8.5-10.5) 10/19/23 17:40 Total Bilirubin 0.4 mg/dL (0.15-1.2) 10/19/23 17:40 AST 37 U/L (0-32) H 10/19/23 17:40 ALT 40 U/L (0-33) H 10/19/23 17:40 Alkaline Phosphatase 98 U/L (35-105) 10/19/23 17:40 Total Protein 6.8 g/dL (6.6-8.7) 10/19/23 17:40 Albumin 3.8 g/dL (3.5-5.2) 10/19/23 17:40 Globulin 3.0 g/dL (1.3-4.6) 10/19/23 17:40 No radiology studies performed this visit Discharge Plan Discharge Patient Disposition: Home Clinical Impression: Myalgia Condition: Stable Prescriptions: New Naprosyn 500 mg tablet 500 mg PO BID PRN (Reason: pain) Qty: 20 0RF No Action gabapentin 100 mg capsule 100 mg PO TID cyclobenzaprine 10 mg tablet 10 mg PO TID PRN (Reason: Pain) hydrocodone-acetaminophen 5-325 mg tablet 1 tab PO Q4H 7 Days Qty: 42 0RF lisinopril 20 mg tablet 20 mg PO DAILY metformin 500 mg tablet extended release 24 hr 500 mg PO BID omeprazole magnesium [Prilosec OTC] 20 mg tablet,delayed release (DR/EC) 20 mg PO DAILY hydrochlorothiazide 25 mg tablet 25 mg PO DAILY bupropion HCl 100 mg tablet 100 mg PO BID Ativan 1 mg tablet 1 mg PO Q6H PRN (Reason: anxiety) Qty: 10 0RF Discharge Orders: Discharge ED (Routine); Ordered 10/19/23 Ordered By: Hayley Saha Referrals: Demetra Merino DO [Primary Care Provider] - 1-3 days Discharge Diet: Advance as tolerated Discharge Activity: Resume usual activity Patient Instructions: Musculoskeletal Pain (ED) Coding Level of Care Code 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
[2023-10-19] MEDS: ondansetron 2 mg/ML SDV 2 mL 4 MG IVP (17:40)
[2023-10-19] MEDS: ketorolac 30 mg/mL INJ IVP (17:43)
[2023-10-19 17:45] VITALS: RESP 16; O2SAT 97
[2023-10-19] MEDS: HYDROmorphone 1 mg/mL INJ 1 mL IVP (17:45)
[2023-10-19 17:46] VITALS: BP 128/87; PULSE 79; RESP 16; O2SAT 97
[2023-10-19 17:56] LABS: Basophils # 0.1 10^3/uL (0.0-0.1); Basophils % 1.9 %; Eosinophils # 0.1 10^3/uL (0.0-0.8); Eosinophils % 1.5 %; Hematocrit 40.1 % (36-47); Lymphocytes # 0.4 10^3/uL (0.8-4.8); Lymphocytes % 7.6 %; Mean Corpuscular HGB Conc 32.9 g/dL (30-55); Mean Corpuscular Hemoglobin 29.1 pg (27-33); Mean Corpuscular Volume 88.5 fl (85-98); Mean Platelet Volume 12.6 fL (7.4-10.4); Monocytes # 0.6 10^3/uL (0.2-0.9); Monocytes % 11.9 %; Neutrophils # 3.61 10^3/uL (1.8-7.7); Neutrophils % 76.5 %; Nucleated Red Blood Cells % 0 %; Platelet Count 213 10^3/cmm (157-399); Red Blood Count 4.53 10^6/uL (3.85-5.65); Red Cell Distribution Width 14.2 % (12.1-15.1); White Blood Count 4.72 10^3/uL (3.29-11.43)
[2023-10-19 18:08] LABS: Alanine Aminotransferase 40 U/L (0-33); Albumin Level 3.8 g/dL (3.5-5.2); Alkaline Phosphatase 98 U/L (35-105); Anion Gap 18.8 (5-19); Aspartate Amino Transferase 37 U/L (0-32); Blood Urea Nitrogen 8 mg/dL (6-20); Calcium 8.9 mg/dL (8.5-10.5); Carbon Dioxide 19 mmol/L (22-29); Chloride 102 mmol/L (98-107); Glomerular Filtration Rate 89.7 mL/min (90-130); Glucose 162 mg/dL (65-115); Osmolality Calculated 284 mOsm/kg (285-295); Potassium 3.8 mmol/L (3.5-5.1); Sodium 136 mmol/L (136-145); Total Bilirubin 0.4 mg/dL (0.15-1.2); Total Protein 6.8 g/dL (6.6-8.7)
[2023-10-19 18:47] VITALS: BP 112/65; PULSE 95; RESP 16; O2SAT 96
== END 2023-10-19 18:53 | disposition home or self-care (01) ==
PROVIDERS: Emergency Provider Emergency Medicine; PCP Family Medicine
DX: M79.10 Myalgia, unspecified site (principal); Z79.84 Long term (current) use of oral hypoglycemic drugs
CPT/HCPCS: 80053; 85025; 96374; 96375; 99284; J1170; J1885; J2405

== ENCOUNTER → 2023-11-25 14:31 | Outpatient (BNVA) | payer MEDICAID, SELFPAY | PROVIDERS: PCP Family Medicine; Visit Provider Podiatrist Foot & Ankle Surgery | DX: Q82.8 Other specified congenital malformations of skin | CPT/HCPCS: 73630 ==

== ENCOUNTER 2025-01-23 19:37 | Inpatient (IN) | payer BC, SELFPAY ==
[2025-01-23] VITALS (29 sets, daily range): BP systolic 107–162; BP diastolic 69–99; PULSE 88–121; RESP 12–26; TEMP 36.7; O2SAT 96–100; BMI 35.9
--- NOTE | 2025-01-23 19:41 | XRR_ITS ---
PROCEDURE INFORMATION: Exam: XR Chest Exam date and time: 01/23/2025 8:17 PM Age: 49 years old Clinical indication: Pain; Chest pressure; Additional info: Cp TECHNIQUE: Imaging protocol: Radiologic exam of the chest. Views: 1 view. COMPARISON: CR XR chest 1V portable [id number] 01/16/2023 7:47 PM FINDINGS: Lungs: No focal consolidation or other acute appearing pulmonary opacity. Pleural spaces: No pleural effusion or pneumothorax noted. Heart/Mediastinum: There is no cardiomegaly. Bones/joints: No acute osseous abnormality. Intraperitoneal space: There is no free intraperitoneal gas. XR/XR chest 1V portable [id number] IMPRESSION: No acute findings.
--- NOTE | 2025-01-23 19:41 | ECG_ITS ---
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
--- NOTE | 2025-01-23 20:15 | W.ED.CHESTPA ---
HPI - Chest Pain General: Chief Complaint: Chest Pain Stated Complaint: Dr Fuentes Possible Heart attack Time Seen by Provider: 01/23/25 20:07 History of Present Illness: 49-year-old female with a history of tobacco dependence, obesity, diabetes and hypertension who presents emergency room with chest pain. He says over the last couple months she has had intermittent sharp pains in her chest but today she developed a different pain that was a pressure. She went to clinic and apparently labs were done and she was told to come to the emergency room because a lab was elevated and we had cardiology. No cough. No lower extremity swelling. No calf pain. She did have some nausea and vomiting earlier. Related Data Home Medications ?Medication ?Instructions ?Recorded ?Confirmed lisinopril 20 mg tablet 20 mg PO DAILY 02/24/20 02/03/24 metformin 500 mg tablet,extended 500 mg PO BID 04/02/20 02/03/24 release 24 hr omeprazole magnesium 20 mg 20 mg PO DAILY 04/02/20 02/03/24 tablet,delayed release (Prilosec OTC) cyclobenzaprine 10 mg tablet 10 mg PO TID PRN Pain 09/11/20 02/03/24 gabapentin 100 mg capsule 100 mg PO TID 09/11/20 02/03/24 bupropion HCl 100 mg tablet 100 mg PO BID 03/14/21 02/03/24 hydrochlorothiazide 25 mg tablet 25 mg PO DAILY 03/14/21 02/03/24 Previous Rx's ?Medication ?Instructions ?Recorded hydrocodone 5 mg-acetaminophen 325 1 tab PO Q4H 7 days #42 tabs 11/13/21 mg tablet lorazepam 1 mg tablet (Ativan) 1 mg PO Q6H PRN anxiety #10 tabs 01/16/23 naproxen 500 mg tablet (Naprosyn) 500 mg PO BID PRN pain #20 tabs 10/19/23 Allergies Allergy/AdvReac Type Severity Reaction Status Date / Time No Known Allergies Allergy Verified 01/23/25 19:52 Review of Systems Narrative: Constitutional symptoms: Negative except as documented in HPI. Skin symptoms: Negative except as documented in HPI. Eye symptoms: Negative except as documented in HPI. ENMT symptoms: Negative except as documented in HPI. Respiratory symptoms: Negative except as documented in HPI. Cardiovascular symptoms: Negative except as documented in HPI. Gastrointestinal symptoms: Negative except as documented in HPI. Genitourinary symptoms: Negative except as documented in HPI. Musculoskeletal symptoms: Negative except as documented in HPI. Neurologic symptoms: Negative except as documented in HPI. Psychiatric symptoms: Negative except as documented in HPI. Endocrine symptoms: Negative except as documented in HPI. PFSH ED PFSH: Social History Quit status (tobacco/nicotine): has tried quititng Number of times tried to quit tobacco: 5 Second hand smoke exposure: No Current gender identity: Female Physical Exam Narrative: EXAM NARRATIVE: General: Alert, no acute distress. Skin: Warm, dry. Head: Normocephalic, atraumatic. Neck: Supple, trachea midline. Eye: Extraocular movements are intact. Ears, nose, mouth and throat: mucosa moist. Cardiovascular: Regular, tachycardic, normal peripheral perfusion. Respiratory: Lungs are clear to auscultation, respirations are non-labored, breath sounds are equal, Symmetrical chest wall expansion. Gastrointestinal: Soft, Nontender, Non distended Musculoskeletal: Normal ROM, no deformity. Neurological: Alert and oriented, No focal neurological deficit observed. Psychiatric: Cooperative, patient is a bit anxious and tearful Course Vital Signs: Vital signs: Vital Signs Temperature 98.1 F 01/23/25 19:48 Pulse Rate 93 01/23/25 23:15 Respiratory Rate 21 H 01/23/25 23:15 Blood Pressure 133/85 01/23/25 23:15 Pulse Oximetry 98 01/23/25 23:05 MDM - Chest Pain Medical Decision Making Differential diagnosis for patient with chest pain includes but is not limited to and based on the above HPI, review of systems and physical exam: Pneumonia. unstable angina. angina. Acute coronary syndrome / NE. Pulmonary embolism. Costochondritis / musculoskeletal. Pleurisy. Pericarditis. Esophageal spasm. Pancreatis. Cholecystitis. Orders placed to evaluate differential diagnosis based on the above differential, HPI and physical exam EKG: Time 1949. Rate 121. Sinus tachycardia, short [place]. Nonspecific ST changes., This was reviewed and interpreted by myself the ER physician at 1954 Chest x-ray: No acute process. No infiltrate. No pneumothorax. This was reviewed and interpreted by myself the emergency room physician. I also reviewed the radiology report. Lab Review: Laboratory results were reviewed and interpreted by myself the emergency room physician. Mild leukocytosis. No anemia. Renal function slightly worse than her baseline at [age] 1.4. Initial troponin is 30 and follow-up is just slightly below that. However given her risk factors and difficulty with outpatient workup she is being admitted. HEART Pathway [email or web address]25 All calculations should be rechecked by clinician prior to use RESULT SUMMARY: 5 points HEART Pathway Score High risk 12-65% 30-day MACE Cardiology consultation and admission recommended. Further testing indicated. INPUTS: History ?> 1 = Moderately suspicious EKG ?> 0 = Normal Age ?> 1 = 45-64 Risk factors ?> 2 = >= risk factors or history of atherosclerotic disease Initial troponin ?> 1 = 1-3x normal limit I reviewed the patient's medical record. Reexamination: Patient remained stable. No increased work of breathing. No altered mental status. No focal motor deficits. Patient heart rate has come down significantly and chest pain went away after she received metoprolol. She is down to a 1 or 2. Consultation: I spoke with Dr. Marinelli who is on-call for the hospitalist service who agrees to admission. Assessment and plan: Chest pain Tobacco dependence Hypertension Diabetes Obesity Elevated troponin Acute on chronic renal insufficiency ?P.o. aspirin and IV metoprolol in the emergency room. -I discussed the patient with the hospitalist on-call who is admitting the patient. - Discussed findings and plan with patient. Answered any questions. - All laboratory values were reviewed and interpreted personally by myself, the ER physician - All imaging was reviewed and interpreted personally by myself, the ER physician. - Evaluation and treatment of this problem were appropriate in the emergency setting Lab Data 01/23/25 20:01 01/23/25 20:01 Radiology Impressions Chest X-Ray 01/23/25 19:41 IMPRESSION: No acute findings. Laboratory Results WBC 16.06 10^3/uL (3.29-11.43) H 01/23/25 20:01 RBC 5.71 10^6/uL (3.85-5.65) H 01/23/25 20:01 Hgb 16.60 g/dL (11.27-16.99) 01/23/25 20:01 Hct 49.7 % (36-47) H 01/23/25 20:01 MCV 87.0 fl (85-98) 01/23/25 20: MCH 29.1 pg (27-33) 01/23/25 20: MCHC 33.4 g/dL (30-55) 01/23/25 20: RDW 14.4 % (12.1-15.1) 01/23/25 20: Plt Count 343 10^3/cmm (157-399) 01/23/25 20: MPV 12.8 fL (7.4-10.4) H 01/23/25 20: Neut % (Auto) 78.6 % 01/23/25 20: Lymph % (Auto) 14.4 % 01/23/25 20: [place] % (Auto) 5.8 % 01/23/25 20: Eos % (Auto) 0.1 % 01/23/25: Baso % (Auto) 0.7 % 01/23/25 20: Neut # (Auto) 12.63 10^3/uL (1.8-7.7) H 01/23/25 20: Lymph # (Auto) 2.3 10^3/uL (0.8-4.8) 01/23/25 20: [place] # (Auto) 0.9 10^3/uL (0.2-0.9) 01/23/25 20: Eos # (Auto) 0.0 10^3/uL (0.0-0.8) 01/23/25 20: Baso # (Auto) 0.1 10^3/uL (0.0-0.1) 01/23/25 20: Nucleated RBC % (auto) 0 % 01/23/25: Nucleated RBCs # 0.0 /100WBC 01/23/25 20: D-Dimer 0.42 ug/mLFEU (0-0.59) 01/23/25 20: Sodium 138 mmol/L (136-145) 01/23/25 20: Potassium 3.8 mmol/L (3.5-5.1) 01/23/25 20: Chloride 100 mmol/L (98-107) 01/23/25 20: Carbon Dioxide 21 mmol/L (22-29) L 03/10/25 20:01 Anion Gap 20.8 (5-19) H 01/23/25 20:01 BUN 16 mg/dL (6-20) 01/23/25 20: Creatinine 1.4 mg/dL (0.5-0.9) H 01/23/25 20:01 GFR Calculation 40.1 mL/min (90-130) L 01/23/25 20: Glucose 162 mg/dL (65-115) H 01/23/25 20: Calculated Osmolality 291 mOsm/kg (285-295) 01/23/25 20: Calcium 10.4 mg/dL (8.5-10.5) 01/23/25 20: Total Bilirubin 0.6 mg/dL (0.15-1.2) 01/23/25 20: AST 18 U/L (0-32) 01/23/25 20:01 ALT 28 U/L (0-33) 01/23/25 20: Alkaline Phosphatase 164 U/L (35-105) H 01/23/25 20:01 Troponin T Baseline 29 ng/L (0-10) H 01/23/25 20: Troponin T 120 Minute 28.09 ng/L (0-10) H 01/23/25 21:51 Delta Troponin T -0.91 ABS# (0-10) L 01/23/25 21:51 C-Reactive Protein 17.5 mg/L (0.0-4.9) H 01/23/25 20:01 Total Protein 7.5 g/dL (6.6-8.7) 01/23/25 20: Albumin 4.5 g/dL (3.5-5.2) 01/23/25 20: Globulin 3.0 g/dL (1.3-4.6) 01/23/25 20: Lipase 24 U/L (13-60) 01/23/25 20:01 Influenza A (PCR) Negative (Negative) 01/23/25 21:09 Influenza Type B (PCR) Negative (Negative) 01/23/25 21:09 RSV (PCR) Negative (Negative) 01/23/25 21:09 SARS-CoV-2 (PCR) Negative (Negative) 01/23/25 21:09 All radiology interpretation(s) finalized by discharge Discharge Plan Discharge Patient Disposition: Placed in Observation Clinical Impression: Chest pain, Elevated troponin, Acute on chronic renal insufficiency, Tobacco dependence, Sinus tachycardia Coding Level of Care Code 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
[2025-01-23 20:18] LABS: Basophils # 0.1 10^3/uL (0.0-0.1); Basophils % 0.7 %; Eosinophils % 0.1 %; Hematocrit 49.7 % (36-47); Lymphocytes # 2.3 10^3/uL (0.8-4.8); Lymphocytes % 14.4 %; Mean Corpuscular HGB Conc 33.4 g/dL (30-55); Mean Corpuscular Hemoglobin 29.1 pg (27-33); Mean Platelet Volume 12.8 fL (7.4-10.4); Monocytes # 0.9 10^3/uL (0.2-0.9); Monocytes % 5.8 %; Neutrophils # 12.63 10^3/uL (1.8-7.7); Neutrophils % 78.6 %; Nucleated Red Blood Cells % 0 %; Platelet Count 343 10^3/cmm (157-399); Red Blood Count 5.71 10^6/uL (3.85-5.65); Red Cell Distribution Width 14.4 % (12.1-15.1); White Blood Count 16.06 10^3/uL (3.29-11.43)
[2025-01-23 20:37] LABS: Alanine Aminotransferase 28 U/L (0-33); Albumin Level 4.5 g/dL (3.5-5.2); Alkaline Phosphatase 164 U/L (35-105); Aspartate Amino Transferase 18 U/L (0-32); Blood Urea Nitrogen 16 mg/dL (6-20); C Reactive Protein 17.5 mg/L (0.0-4.9); Calcium 10.4 mg/dL (8.5-10.5); Carbon Dioxide 21 mmol/L (22-29); Chloride 100 mmol/L (98-107); Creatinine Clr Calc Pharmacy 56.9358; Glomerular Filtration Rate 40.1 mL/min (90-130); Glucose 162 mg/dL (65-115); Lipase 24 U/L (13-60); Osmolality Calculated 291 mOsm/kg (285-295); Sodium 138 mmol/L (136-145); Total Bilirubin 0.6 mg/dL (0.15-1.2); Total Protein 7.5 g/dL (6.6-8.7)
[2025-01-23 20:38] LABS: Troponin(5th) Baseline 29 ng/L (0-10)
[2025-01-23 20:43] LABS: Anion Gap 20.8 (5-19); Potassium 3.8 mmol/L (3.5-5.1)
[2025-01-23 20:51] LABS: D Dimer 0.42 ug/mLFEU (0-0.59)
[2025-01-23] MEDS: aspirin 81 mg Chew Tablet 324 MG PO (20:53)
[2025-01-23] MEDS: ondansetron 2 mg/ML SDV 2 mL 4 MG IVP (20:55)
[2025-01-23] MEDS: metoprolol tartrate 1 mg/1 mL SDV 5 mL 5 MG IVP (20:56)
--- NOTE | 2025-01-23 21:41 | ECG_ITS ---
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
[2025-01-23 22:09] LABS: Influenza A NEGATIVE (Negative); Influenza B NEGATIVE (Negative); Respiratory Syncytial Virus Ce NEGATIVE (Negative); SARS-CoV-2 PCR NEGATIVE (Negative)
[2025-01-23 22:15] LABS: Troponin 5 2HR 28.09 ng/L (0-10)
[2025-01-23 22:16] LABS: Troponin 5 2HR Delta -0.91 ABS# (0-10)
--- NOTE | 2025-01-23 23:32 | PM.HP ---
Providers/Chief Complaint Primary Care Provider: Demetra Merino DO Chief Complaint: Dr Fuentes Possible Heart attack History of Present Illness Marbella Lynch is a 49 year old female with history of hypertension, diabetes, obesity, active smoking 1 pack/day presented to the hospital with chief complaint of nausea vomiting and chest discomfort. Patient describing her chest discomfort as tightness, which only lasts seconds to 2 minutes, she has been experiencing chest discomfort for last few weeks, her PCP has recommended stress test she was obtaining prior authorization today decided come to the hospital when she start experiencing nausea vomiting, increased work of breathing and panic attacks. Patient is endorsing 5 episode of emesis. Her chest pain lasted only couple of seconds it was nonradiating. She is describing chest discomfort as pressure substernal. No previous history of IL or CHF or coronary disease. Stating that her mother and grandmother had CABG in their 70s Troponin trending down EKG without ischemic or infarctive changes, D-dimer unremarkable Patient does have facial rash with petechial rash of extremities, I have given her Benadryl Patient has not used any new medication recently In the ER she has received metoprolol and aspirin She does not have any drug allergies listed, she is not sure about drug allergies either Patient is denying episodic headache, diarrhea but endorsing symptoms related to anxiety Review of Systems Const: Reports: chills Eyes: Denies: change in vision ENMT: Denies: throat pain Card: Reports: chest pain Resp: Reports: dyspnea GI: Reports: nausea and vomiting Medications/Allergies Home Medications ?Medication ?Instructions ?Recorded ?Confirmed ?Last Taken ?Type metformin 500 mg tablet,extended 500 mg PO BID 04/02/20 01/24/25 01/24/25 History release 24 hr amlodipine 5 mg tablet 5 mg PO DAILY 01/24/25 01/24/25 01/24/25 History duloxetine 60 mg capsule,delayed 60 mg PO BID 01/24/25 01/24/25 01/24/25 History release (Cymbalta) Allergies Allergy/AdvReac Type Severity Reaction Status Date / Time No Known Allergies Allergy Verified 01/23/25 19:52 PFSH Acute PFSH: Medical History Post-traumatic stress disorder, unspecified FHx: cholecystectomy Carpal tunnel syndrome delivery delivered Surgical History Postoperative state H/O: hysterectomy Hx of tonsillectomy H/O dilation and curettage Social History Quit status (tobacco/nicotine): has tried quititng Number of times tried to quit tobacco: 5 Second hand smoke exposure: No Current gender identity: Female Vitals/I&O/Wt Last Vital Signs Temp 98.1 F 01/23/25 19:48 Pulse 93 01/23/25 23:15 Resp 21 H 01/23/25 23:15 BP 133/85 01/23/25 23:15 Pulse Ox 98 01/23/25 23:05 Weight last 48 hrs Weight 97.976 kg Physical Exam Narrative: Morbidly obese female No active chest pain Hemodynamically stable Heart rate around 90s Anxious appearing Skin rash noted Awake and alert AOx4 NIH 0 GCS 15 no active focal deficit Abdomen soft S1, S2 Data 01/23/25 20:01 01/23/25 20:01 A&P Assessment and plan (1) Generalized anxiety disorder: (2) Sinus tachycardia: (3) Elevated troponin: (4) Anginal equivalent: Plan Angina equivalent symptoms Shortness of breath and chest pain Troponin trending down EKG unremarkable Request echo and stress test in the morning Multiple risk factors such as diabetes hypertension active smoker Hypertension: Optimize antihypertensive regimen, continue lisinopril 20 mg with amlodipine for now, I will increase the dose amlodipine to 10 mg Active smoker: Smokes 1 pack/day: Counseled on smoking cessation Skin rash: Given Benadryl: Patient has high white count, no signs of anaphylaxis, patient was given metoprolol and aspirin in the ER No episodic diarrhea symptoms however she is endorsing hypertension and chest pain and panic attack symptoms, DVT prophylaxis: Lovenox N.p.o. after midnight Will use insulin sliding scale in the morning Check lipid panel and A1c PDMP PDMP Reviewed: Not Reviewed Attestations Medical Necessity Statement*: Anticipating discharge within 48 hours Diagnoses Generalized anxiety disorder F41.1 Sinus tachycardia R00.0 Elevated troponin R79.89 Anginal equivalent I20.89
[2025-01-24] VITALS (12 sets, daily range): BP systolic 103–148; BP diastolic 68–87; PULSE 86–107; RESP 16–18; TEMP 36.6–36.9; O2SAT 94–99
--- NOTE | 2025-01-24 00:23 | USCV_ITS ---
Marbella Lynch Age: 49 Gender: F : 1975 Exam Date: 01/24/2025 00:31 Ordering Phys: Heather Marinelli MD Technologist: LAMAR Exam Location: [facility] [place] Indication: ua tobacco dependence, obesity, HTN BP: 131 / 81 HR: 87 Rhythm: Sinus Technical Quality: Adequate MEASUREMENTS (Male / Female) Normal Values 2D ECHO LV Diastolic Diameter PLAX 3.1 cm 4.2 - 5.9 / 3.9 - 5.3 cm IVS Diastolic Thickness 1.7 cm 0.6 - 1.0 / 0.6 - 0.9 cm IVS Systolic Thickness 2.0 cm LVPW Diastolic Thickness 1.3 cm 0.6 - 1.0 / 0.6 - 0.9 cm LVPW Systolic Thickness 1.5 cm LVOT Diameter 1.8 cm LV Ejection Fraction 2D Teich 54.9 % LV Ejection Fraction MOD 4C 59.3 % LV Ejection Fraction MOD 2C 53.8 % LV Ejection Fraction 2C AL 52.8 % LA Diameter 3.2 cm LA Sys Volume AL 47.9 cm cubed LA Sys Volume Index AL 22.2 cm cubed/m squared Aorta at Sinotubular Diameter 2.5 cm IVC Diameter 0.9 cm M-MODE LA Ao Ratio MM 1.1 AV Cusp Separation MM 2.0 cm DOPPLER AV Peak Velocity 142.0 cm/s LVOT Peak Velocity 128.0 cm/s AV Area Cont Eq vti 2.4 cm squared AV Area Cont Eq pk 2.2 cm squared MV Peak Velocity 139.0 cm/s MV Area PHT 2.6 cm squared Mitral E to A Ratio 0.7 TR Peak Velocity 283.0 cm/s TR Peak Gradient 32.0 mmHg TV Peak E Velocity 55.0 cm/s FINDINGS Left Ventricle Normal left ventricular size, systolic function and wall thickness, with no regional wall motion abnormalities. Left ventricular ejection fraction is estimated at 60 %. Grade I/IV diastolic dysfunction (abnormal relaxation filling pattern), normal to mildly elevated filling pressures. Right Ventricle The right ventricle is normal in size and function. Right Atrium The right atrium is normal in size. Left Atrium Moderately increased left atrial size. Mitral Valve Mildly thickened mitral valve. No mitral valve stenosis. Mild mitral valve regurgitation. Aortic Valve Moderate aortic valve calcification. No aortic valve stenosis. Mild aortic valve regurgitation. Tricuspid Valve Mild tricuspid valve regurgitation. Pulmonic Valve Structurally normal pulmonic valve without significant stenosis. There is no pulmonic regurgitation. Pericardium Normal pericardium without effusion. Aorta Normal ascending aorta dimension. IVC The inferior vena cava appears normal. CONCLUSIONS Normal left ventricular size, systolic function and wall thickness, with no regional wall motion abnormalities. Left ventricular ejection fraction is estimated at 60 %. Grade I/IV diastolic dysfunction (abnormal relaxation filling pattern), normal to mildly elevated filling pressures. Moderately increased left atrial size. Mildly thickened mitral valve. No mitral valve stenosis. Mild mitral valve regurgitation. Moderate aortic valve calcification. No aortic valve stenosis. Mild aortic valve regurgitation. There is no pericardial effusion. Right atrial pressure is around 5 mm of mercury. Heather Enrique MD (Electronically Signed) Final Date: 24 January 2025 12:41 S
--- NOTE | 2025-01-24 00:23 | NMCV_ITS ---
NM shiva perf SPECT r/s* [id number] Marbella Lynch Age: 49 Gender: F : 1975 Exam Date: 01/24/2025 06:26 Ordering Phys: Heather Marinelli MD Technologist: CELSO Blanc Exam Location: [facility] Indications: CP STRESS TEST [facility] IMAGE PROTOCOL Rest/Stress 1 Lexiscan Day Radiopharmaceutical Dose (mCi) Administration Site Administered by Rest: Tc-99m 10.8 IV CELSO Rai Sestamibi Stress:Tc-99m 32.7 IV CELSO Blanc Sestamibartolo Rest: 24-Jan-2025 60 Discovery 630 Stress: 24-Jan-2025 30 Discovery 630 0.4mg Lexiscan. Images obtained in supine and prone position. SPECT RESULTS Technical Quality: Good Raw Data Analysis: Normal Image Corrections: No attenuation or motion correction applied Summed Stress Score: 5 Summed Rest Score: 0 Summed Difference Score: 5 PERFUSION FINDINGS There appeared to be medium sized area of basal to distal anterior wall reversibility suggestive of possible ischemia in LAD territory, in the absence of wall motion abnormality and prone images cannot rule out artifact, clinical correlation advised. There appeared to be medium sized area of basal to mid lateral and inferior wall reversibility in the absence of wall motion abnormality could be an artifact. FUNCTIONAL RESULTS (calculated via Gated SPECT) Stress Image LV EF (%): 80 Stress EDV (mL):71 TID: 1.11 Stress ESV (mL):14 FUNCTIONAL FINDINGS: There is normal left ventricular systolic function. IMPRESSIONS Medium sized area of basal to distal anterior wall ischemia noted suggestive of possible lesion in LAD territory. Please note that prone images were not performed, and in the absence of wall motion abnormality artifact cannot be rule out clinical correlation advised Heather Enrique MD (Electronically Signed) Final Date: 24 January 2025 12:22 S
--- NOTE | 2025-01-24 00:23 | ECG_ITS ---
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 Interpretive Statements LEXISCAN: Procedure: At the baseline, the blood pressure was 118/77 mmHg with a heart rate of 84 bpm. The electrocardiogram showed normal sinus rhythm, normal axis with normal ST and T's. The Lexiscan was infused over a period of 20 seconds. A total of 0.4 mg of Lexiscan was infused. The stress phase was continued for a total of 5 minutes. Heart rate was at the end of stress phase was 109 bpm and a blood pressure of 131/81 mmHg. The EKG at the peak infusion revealed normal sinus rhythm with no significant ST-T wave changes. Sestamibi was injected 20 seconds after the Lexiscan infusion. Blood pressure at the end of recovery phase was 134/83 mmHg with a heart rate of 97 bpm. Conclusion: 1. Normal EKG response to Lexiscan infusion 2. No Lexiscan induced chest pain or cardiac arrhythmia. 3. Normal blood pressure and heart rate response. 4. Sestamibi/sestamibi perfusion scan pending; see separate report. Electronically Signed On 02-05-2025 02:01:46 CDT by Helder Parekh M.D. [id number]
--- NOTE | 2025-01-24 01:41 | ECG_ITS ---
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1975 Requested By: Hayley aSha Order Number: [id number] Joie MD: JEEVAN MORELAND Measurements Intervals [place] Rate: 88 P: 114 [place]: 119 QRS: 128 QRSD: 102 T: 124 QT: 368 QTc: 446 Interpretive Statements SINUS RHYTHM WITH SHORT [place] INTERVAL LEFT POSTERIOR FASCICULAR BLOCK [QRS AXIS > 109, INFERIOR Q] NONSPECIFIC T-WAVE ABNORMALITY Compared to ECG 01/23/2025 21:45:19 Short [place] interval now present Left posterior fascicular block now present T-wave abnormality now present Electronically Signed On 01-30-2025 18:28:17 CDT by JEEVAN MORELAND [email or web address] [id number]
[2025-01-24] MEDS: diphenhydrAMINE 50 mg/mL SDV 1mL 12.5 MG IVP (01:57)
[2025-01-24] MEDS: pantoprazole 40 mg SDV IVP ×2 (01:57→17:32)
[2025-01-24 02:48] LABS: Basophils # 0.1 10^3/uL (0.0-0.1); Basophils % 0.9 %; Eosinophils # 0.1 10^3/uL (0.0-0.8); Eosinophils % 0.9 %; Hematocrit 46.7 % (36-47); Lymphocytes # 3.2 10^3/uL (0.8-4.8); Lymphocytes % 26.2 %; Mean Corpuscular HGB Conc 33.4 g/dL (30-55); Mean Corpuscular Hemoglobin 28.8 pg (27-33); Mean Corpuscular Volume 86.3 fl (85-98); Mean Platelet Volume 12.6 fL (7.4-10.4); Monocytes # 1.1 10^3/uL (0.2-0.9); Monocytes % 9.2 %; Neutrophils # 7.65 10^3/uL (1.8-7.7); Neutrophils % 62.5 %; Nucleated Red Blood Cells % 0 %; Platelet Count 326 10^3/cmm (157-399); Red Blood Count 5.41 10^6/uL (3.85-5.65); Red Cell Distribution Width 14.4 % (12.1-15.1); White Blood Count 12.24 10^3/uL (3.29-11.43)
--- NOTE | 2025-01-24 03:02 | PC.NURSE ---
Dr. Marinelli notified that patient states she no longer takes Lisinopril or Hydrochlorothiazide at home, but that they are ordered for her to take here. Ordered to still keep these medications as orders due to patient having high blood pressure.
[2025-01-24 03:07] LABS: Troponin 5 6HR 30.04 ng/L (0-10); Troponin 5 6HR Delta 1.04 ng/L (0-12)
[2025-01-24 03:08] LABS: Blood Urea Nitrogen 19 mg/dL (6-20); Calcium 9.8 mg/dL (8.5-10.5); Carbon Dioxide 25 mmol/L (22-29); Chloride 103 mmol/L (98-107); Glomerular Filtration Rate 37.1 mL/min (90-130); Glucose 164 mg/dL (65-115); Magnesium 2.2 mg/dL (1.7-2.3); Osmolality Calculated 298 mOsm/kg (285-295); Sodium 141 mmol/L (136-145)
[2025-01-24 03:09] LABS: Chol HDL Ratio 4.03 mg/dL (0.0-4.40); Cholesterol 153 mg/dL (0-200); HDL Cholesterol 38 mg/dL (60-100); LDL Cholesterol Calculated 85 mg/dL (50-129); LDL HDL Ratio 2.24 RATIO (0.00-3.22); Triglycerides 152 mg/dL (0-150)
[2025-01-24 03:11] LABS: Anion Gap 16.6 (5-19); Potassium 3.6 mmol/L (3.5-5.1)
[2025-01-24 03:24] LABS: Estmated Average Glucose 160; Hemoglobin A1C 7.2 % (4.0-6.0)
[2025-01-24] MEDS: enoxaparin 40 mg/0.4 mL Syringe SUBCUT (04:43)
[2025-01-24] MEDS: regadenoson 0.4 Mg/5 ml Syringe IVP (06:56)
[2025-01-24] MEDS: ondansetron 2 mg/ML SDV 2 mL 4 MG IVP (07:05)
[2025-01-24] MEDS: aminophylline 25 mg/mL SDV 20 mL IVP (07:09)
[2025-01-24] MEDS: insulin lispro 100 unit/1 mL SUBCUT ×3 (08:07→17:31)
[2025-01-24] MEDS: amlodipine 5 mg Tablet 10 MG PO (08:07)
[2025-01-24 08:10] LABS: Glucose Point of Care 149 mg/dL (70-110)
--- NOTE | 2025-01-24 09:17 | PC.CHAP ---
Pastoral Care Encounter/Spiritual Assessment Type of Contact [] Declined records management associate visit [] Patient/Family/Request visit [] Outpatient visit [] Follow-up visit [] Physician referral [] Code/Alert [x] Routine visit [] Staff referral [] Actively dying [] Patient sleeping [] Family support [] [] Out of room [] Palliative care [] [] Receiving care in room [] Pre-surgical visit [] Trauma [] Long length of stay [] ICU visit [] Other: Relational/Emotional Strength [x] Patient feels connected with others/family/visitors/staff [] Distress [] Loneliness/isolation [] Abandonment Spirituality of Patient [x] Person of Criss [] Attends [employer] of their Criss [x] Believes in Prayer [] Reads Bible or Denominational materials [] There are Spiritual issues to be addressed Insurance Loss Adjuster Interventions [x] Prayer [x] Active listening [] Non-anxious presence [x] Spiritual/emotional support [] Crisis/trauma care [] Spiritual counseling [] Bereavement support [] Provided bereavement packet [] Provided Bible/devotional materials [] Provided toy/stuffed animal, coloring book to patient or family member [] Provided Communion [] Anointing/[place] [] Salvation [x] Completed spiritual assessment [] Other: Impact on Illness or Injury [] Angry [] Fearful [] Anxious [] Often cries [] Exhaustion [] Unable to work [] Unable to attend muslim [] Unable to walk/stand [] Unable to read [] Unable to drive [] Unable to eat/drink [] Unable to sleep [] Unable to be with family [] Patient intubated [] Other: Summary Time spent with patient 5 min
[2025-01-24 11:33] LABS: Glucose Point of Care 168 mg/dL (70-110)
--- NOTE | 2025-01-24 12:30 | P.PN_ITS ---
Subjective 2 Subjective: She is ambulating in her room. Currently pain or discomfort-free. Vitals/I&O/Wt Last Vital Signs Temp 98.2 F 01/24/25 11:27 Pulse 94 01/24/25 11:27 Resp 17 01/24/25 11:27 BP 148/82 01/24/25 11:27 Pulse Ox 97 01/24/25 11:27 O2 Del Method Room Air 01/24/25 11:27 01/23/25 01/24/25 01/24/25 22:59 06:59 14:59 Intake Total 240 / 240 Balance 240 / 240 Weight last 48 hrs Weight 95.98 kg Weight 97.976 kg Physical Exam 2 Const: COMMON NORMALS: patient oriented x3 and alert GENERAL APPEARANCE: c ooperative ORIENTATION/CONSCIOUSNESS: Yes awake HENMT: COMMON NORMALS: oropharynx normal Neck/C-Spine: COMMON NORMALS: no JVD Resp: COMMON NORMALS: normal respiratory effort and clear to auscultation bilaterally AUSCULTATION: clear to auscultation bilaterally Cardio: COMMON NORMALS: no JVD, regular rhythm, S1 normal heart sound present, S2 normal heart sound present and No murmurs present (Cardio) RHYTHM: regular rhythm HEART SOUNDS: S1 normal heart sound present and S2 normal heart sound present GI: COMMON NORMALS: Normal to inspection, nondistended, normoactive bowel sounds present, Soft to palpation and non-tender PALPATION: Yes Soft to palpation Extremity: COMMON NORMALS: no joint enlargement and no pedal edema Neuro: COMMON NORMALS: patient oriented x3 and moves all extremities S ENSORIUM/ORIENTATION: Yes alert Skin: COMMON NORMALS: no rashes or lesions noted GENERAL SKIN EXAM: no rashes or lesions noted Data 01/24/25 02:30 01/24/25 02:30 A&P Assessment and plan (1) Generalized anxiety disorder: (2) Sinus tachycardia: (3) Elevated troponin: (4) Anginal equivalent: Plan Angina equivalent symptoms Reviewed vitals, CBC, D-dimer. Dimer not elevated. Reviewed troponin series, mild elevation, flat across the board. She is currently free of discomfort. Echocardiogram obtained, reviewed, normal ejection fraction, grade 1 diastolic dysfunction. No noted regional wall motion normalities. Underwent assessment by stress testing, with finding of medium sized area of basal to distal anterior wall ischemia suggestive of possible lesion in LAD territory. However, without prone imaging could not rule out artifact. Discussed with her and with cardiology, she is agreeable to further pursue cardiology consultation for additional evaluation and consideration of further risk stratification with coronary angiography. With noted LILLIAN versus CKD, creatinine elevated 1.5, still 1.4 she is receiving additional hydration by cardiology. Most recent labs from before are from 2022. No other recent labs available. Kidney ultrasound is requested to further assess risks of contrast-induced nephropathy with the procedure. Monitor for risk of fluid overload with IV fluids. Shortness of breath and chest pain Troponin trending down EKG unremarkable Request echo and stress test in the morning Multiple risk factors such as diabetes hypertension active smoker Discussed with nursing, case management coordinator. Hypertension: Continue lisinopril, multipin. Monitor blood pressures. Active smoker: Discussed smoking cessation for 3 and half minutes. Continue to encourage cessation. Added nicotine patch, lozenges as needed. Smokes 1 pack/day: Counseled on smoking cessation Skin rash: Given Benadryl: Patient has high white count, no signs of anaphylaxis, patient was given metoprolol and aspirin in the ER No episodic diarrhea symptoms however she is endorsing hypertension and chest pain and panic attack symptoms, Diabetes: Noted diabetes, A1c 7.2. On metformin. Sliding scale insulin while in the hospital. Monitor POC glucose. Change diet to consistent carbohydrate. DVT prophylaxis: Lovenox N.p.o. after midnight PDMP PDMP Reviewed: Not Reviewed Attestations 2 Medical Necessity Statement*: Continue hospitalization for assessment and management of angina assessment possible unstable angina, ischemic coronary disease with multiple cardiovascular risk factors, abnormal stress test, further assessment of renal dysfunction possible LILLIAN versus CKD. and High MDM includes amount and/or complexity of data reviewed/ordered [ resulted lab(s)/test(s), ordered lab(s)/test(s) and other healthcare professional discussion] and described risk of complication, morbidity or mortality of management as documented Diagnoses Generalized anxiety disorder F41.1 Sinus tachycardia R00.0 Elevated troponin R79.89 Anginal equivalent I20.89
--- NOTE | 2025-01-24 15:30 | P.CONIM_ITS ---
<Statement entered by Heather Enrique MD - 01/24/25 18:35> Patient was evaluated and cared for in conjunction with an advanced practice practitioner. I personally examined the patient and reviewed the chart and all pertinent data including imaging, telemetry, and laboratory results. I discussed the patient in detail with the advanced practice practitioner. Please see their note for complete H&P testing result and agreed upon plan of care for the patient. 49-year-old female past medical history significant for hypertension hyperlipidemia diabetes mellitus chronic kidney disease with baseline creatinine normal 1 year ago noted to have worsening of renal function from 1.4-1.5 today. She came in with chest pain, stress test turned out to be positive in LAD territory, we have been asked to assist in her care. GENERAL: Patient is alert, awake and oriented x3. HEART: Regular S1 and S2. No murmur, rub or gallop. LUNGS: Clear to auscultate bilaterally. CENTRAL NERVOUS SYSTEM: Grossly nonfocal. EXTREMITIES: Lower extremities with out edema bilaterally. Assessment and plan Chest pain/abnormal stress test Acute on chronic kidney disease Hypertension As above patient has abnormal stress test risk factor for obstructive coronary artery disease including hypertension hyperlipidemia history of smoking diabetes mellitus, once renal function improved we will proceed with left heart cath/PCI if indicated. Hold BRENDEN inhibitor and HCTZ Add amlodipine and carvedilol to control blood pressure IV fluid 100 mL/h for next 24 to 36 hours recheck renal function if improves and back to baseline below 1.2 we will proceed with left heart cath/PCI most likely day after tomorrow. Providers/Reason For Consult 2 Consulting Physician/Specialty*: Heather Enrique MD Reason for Consult*: Chest pain, abnormal stress test, NSTEMI Requesting Physician: Dr. Marinelli Attending Physician: Jesús Ruff Primary Care Provider: Demetra Merino DO History of Present Illness History of Present Illness Marbella Lynch is a 49 year old female with a hx of current every day smoker, obesity, diabetes, hypertension who presented to the ER for chest pressure and pain. She states this has been going on for approximately 6 months. She denies any aggravating or relieving factors. She states most the time when it occurs it is a sharp or pressure like feeling on the left side of her chest. She states that she has a strong family history of coronary artery disease including her mother who had open heart surgery. She states she went to a clinic for chest pain and possibly troponin was elevated and she was told to come to the emergency room. She states she had a few episodes of nausea and vomiting with this. She denies any chest pain at the time of visit. Creatinine is elevated at 1.5. EKG showed no acute ST elevation or T wave abnormalities. Troponin was 29-28.09-30.04 delta negative. Echo was done that showed normal EF 60% without wall motion abnormalities. Grade I/IV diastolic dysfunction seen. Stress test was performed that showed medium sized area of basal to distal anterior wall ischemia suggesting possible lesion in the LAD territory. Prone images were not performed. Review of Systems 2 Narrative: Consitutional: denies fever, chills, body aches, or changes in appetite, denies abnormal weight loss Eyes: Denies changes in vision Card: Denies chest pain, palpitations, irregular heart rhythm, edema, syncope, shortness of breath, orthopnea, leg pain with exertion Resp: Denies shortness of breath, denies hemoptysis, denies cough GI: denies abdominal pain, denies nausea or voimting, denies blood in stool : denies blood in urine, denies dysuria Musc: Denies extremity pain, denies limited range of motion or recent injury Skin: Denies rash, lesions, or wounds, denies changes to skin color Neuro: Denies nubmness in extremities, h/a, s/s of stroke Alexis: Denies easy bruiding/bleeding Medications/Allergies Home Medications ?Medication ?Instructions ?Recorded ?Confirmed ?Last Taken ?Type metformin 500 mg tablet,extended 500 mg PO BID 0 01/24/25 01/24/25 History release 24 hr amlodipine 5 mg tablet 5 mg PO DAILY 01/24/2501/2401/24/25 History duloxetine 60 mg capsule,delayed 60 mg PO BID 01/24/25 01/24/25 01/24/25 History release (Cymbalta) Allergies Allergy/AdvReac Type Severity Reaction Status Date / Time No Known Allergies Allergy Verified 01/23/25 19:52 Current Medications Generic Name Dose Route Start Last Admin Trade Name Freq PRN Reason Stop Dose Admin Aminophylline 25 mg 01/24/25 06:33 01/24/25 07:09 Aminophylline 25 Mg/Ml Sdv 20 Ml IVP 01/25/25 06:32 25 mg Q2M PRN Administration see dose instructions Amlodipine Besylate 10 mg 01/24/25 09:00 01/24/25 08:07 Amlodipine 5 Mg Tablet PO 10 mg DAILY ANSELMO Administration Enoxaparin Sodium 40 mg 01/24/25 06:00 01/24/25 04:43 Enoxaparin 40 Mg/0.4 Ml Syringe SUBCUT 40 mg Q24H ANSELMO Administration Hydrochlorothiazide 25 mg 01/24/25 09:00 01/24/25 11:03 Hydrochlorothiazide 25 Mg Tablet PO Not Given DAILY ANSELMO Insulin Human Lispro 0 unit 01/24/25 08:00 01/24/25 11:59 Insulin Lispro 100 Unit/1 Ml SUBCUT 4 unit WM&BEDTIME ANSELMO Administration Protocol Lisinopril 20 mg 01/24/25 09:00 01/24/25 11:03 Lisinopril 20 Mg Tablet PO Not Given DAILY ANSELMO Ondansetron HCl 4 mg 01/24/25 06:33 01/24/25 07:05 Ondansetron 2 Mg/Ml Sdv 2 Ml IVP 4 mg Q2M PRN Administration NAUSEA Pantoprazole Sodium 40 mg 01/24/25 01:41 01/24/25 02:03 Pantoprazole 40 Mg Sdv IVP Not Given BID ANSELMO PFSH Acute 2 PFSH: Medical History Post-traumatic stress disorder, unspecified FHx: cholecystectomy Carpal tunnel syndrome delivery delivered Surgical History Postoperative state H/O: hysterectomy Hx of tonsillectomy H/O dilation and curettage Social History Quit status (tobacco/nicotine): has tried quititng Number of times tried to quit tobacco: 5 Second hand smoke exposure: No Current gender identity: Female Vitals/I&O/Wt Last Vital Signs Temp 98.2 F 01/24/25 11:27 Pulse 107 H 01/24/25 13:19 Resp 17 01/24/25 11:27 BP 148/82 01/24/25 11:27 Pulse Ox 97 01/24/25 11:27 O2 Del Method Room Air 01/24/25 11:27 01/24/25 01/24/25 01/24/25 06:59 14:59 22:59 Intake Total 720 / 720 Balance 720 / 720 Weight last 48 hrs Weight 211 lb 9.6 oz Weight 216 lb Physical Exam 2 Narrative: General: No apparent distress, healthy appearing, well nourished HENMT: normoceophalic Muskuloskeletal: Full ROM Lymphatic: no lymphedema noted Respiratory: Normal respiratory effort, clear to auscultation bilaterally throughout all lung martins, no use of accessory muscles Cardio: No JVD, regular rate, regular rhythm, S1 S2 normal, no murmurs, peripheral pulses 1+ radial right, 2+ radial left Extremities: Full ROM, normal, normal capillary refill, no cyanosis or edema Neuro: Alert and oriented x4, no focal motor deficits Psych: Affect normal, denies suicidal ideation, mental status grossly normal Skin: No rashes or lesions noted, no wounds Data 01/24/25 02:30 01/24/25 02:30 A&P Assessment and plan (1) Chest pain: (2) Elevated troponin: (3) Abnormal stress test: (4) Nicotine dependence, unspecified, uncomplicated: (5) Sinus tachycardia: Plan Patient has had chest pain with abnormal stress test, elevated troponin, and strong risk factors for coronary artery disease. At this time she is chest pain free. Her creatinine is 1.5. We are unsure of her baseline due to her labs havn't been checked here in 2 years. The plan is to stop HCTZ, stop lisinopril, give fluids. We will start her on 3.125 BID coreg for tachycardia. The plan is to take the patient for an angiogram possible PCI tomorrow at 7 if creatinine comes down. Otherwise, we may have to wait. We will tentatively place her on the schedule for tomorrow morning at 7. She agrees to proceed. Thank you for allowing us to care for this very pleasant 49 year old female. PDMP PDMP Reviewed: Not Reviewed Consult Attestations 2 Medical Necessity Statement: Deferred to primary. Coding Level of Care Code Acute Code for g Fwd Diagnoses Chest pain R07.9 Elevated troponin R79.89 Abnormal stress test R94.39 Nicotine dependence, unspecified, uncomplicated F17.200 Sinus tachycardia R00.0
[2025-01-24] MEDS: nicotine 21 mg Patch 1 PATCH TRANSDERMA (15:49)
[2025-01-24] MEDS: sodium chloride 0.9% 1,000 ML 100 ML IV (15:49)
[2025-01-24] MEDS: ALPRAZolam 0.5 mg Tablet PO (16:30)
--- NOTE | 2025-01-24 16:56 | USR_ITS ---
PROCEDURE INFORMATION: Exam: US Retroperitoneal, Complete, Kidneys and Bladder Exam date and time: 01/24/2025 5:14 PM Age: 49 years old Clinical indication: Abnormal findings; Abnormal lab test; Abnormal kidney function lab tests; Additional info: Rudy vs ckd TECHNIQUE: Imaging protocol: Real-time ultrasound of the retroperitoneum with image documentation. Complete exam focused on the bilateral kidneys and urinary bladder. COMPARISON: CT abdomen pelvis w con* [id number] 01/23/2025 5:31 PM FINDINGS: Right kidney: Right kidney measures 12.3 cm in length. No stones. No hydronephrosis. Left kidney: Left kidney measures 11.9 cm in length. 2 cm simple cyst noted in the left kidney. No stones. No hydronephrosis. Urinary bladder: Unremarkable. US/US renal BI* [id number] IMPRESSION: No hydronephrosis or sonographic sequela of chronic renal disease.
[2025-01-24 17:01] LABS: Glucose Point of Care 307 mg/dL (70-110)
[2025-01-24] MEDS: carvedilol 3.125 mg Tablet PO (17:32)
[2025-01-24 20:49] LABS: Glucose Point of Care 100 mg/dL (70-110)
[2025-01-25] VITALS (22 sets, daily range): BP systolic 103–152; BP diastolic 64–84; PULSE 73–92; RESP 12–21; TEMP 36.6–36.7; O2SAT 93–99
[2025-01-25 06:02] LABS: Basophils # 0.2 10^3/uL (0.0-0.1); Basophils % 1.9 %; Eosinophils # 0.6 10^3/uL (0.0-0.8); Eosinophils % 6.3 %; Lymphocytes # 3.9 10^3/uL (0.8-4.8); Lymphocytes % 38.3 %; Mean Corpuscular HGB Conc 33.2 g/dL (30-55); Mean Corpuscular Volume 87.5 fl (85-98); Mean Platelet Volume 12.4 fL (7.4-10.4); Monocytes # 0.9 10^3/uL (0.2-0.9); Monocytes % 9.3 %; Neutrophils # 4.44 10^3/uL (1.8-7.7); Nucleated Red Blood Cells % 0 %; Platelet Count 282 10^3/cmm (157-399); Red Blood Count 5.03 10^6/uL (3.85-5.65); Red Cell Distribution Width 14.4 % (12.1-15.1); White Blood Count 10.09 10^3/uL (3.29-11.43)
[2025-01-25] MEDS: sodium chloride 0.9% 1,000 ML 100 ML IV ×2 (06:10→09:20)
[2025-01-25] MEDS: ALPRAZolam 0.5 mg Tablet PO (06:10)
[2025-01-25] MEDS: aspirin 325 mg Tablet PO (06:10)
[2025-01-25] MEDS: diphenhydrAMINE 50 mg Capsule PO (06:10)
[2025-01-25 06:23] LABS: Anion Gap 15.3 (5-19); Blood Urea Nitrogen 17 mg/dL (6-20); Calcium 9.5 mg/dL (8.5-10.5); Carbon Dioxide 24 mmol/L (22-29); Chloride 103 mmol/L (98-107); Creatinine Clr Calc Pharmacy 113.9281; Glomerular Filtration Rate 89.3 mL/min (90-130); Glucose 156 mg/dL (65-115); Osmolality Calculated 293 mOsm/kg (285-295); Potassium 3.3 mmol/L (3.5-5.1); Sodium 139 mmol/L (136-145)
[2025-01-25 06:25] LABS: INR 0.89 (0.8-1.2)
--- NOTE | 2025-01-25 06:27 | XACV_ITS ---
Exam Room: 2 Ht: 165 cm Wt: 96 kg BSA: 2.14 m2 Gender: Female : 1975 Any Known Allergies: No known allergies Exam Priority: Routine Procedure(s): Procedure Description: Diagnostic procedure Procedure Description: Left Heart Catheterization Procedure Description: Left ventriculography Procedure Description: Coronary Angiography Procedure Description: Pressure Wire Iva PAULINO; Diagnostic Cath Status: Urgent Diagnostic Findings * Left Main: luminal irregularities 20% stenosis, ALMAZ: 3 flow. * Mid Left Anterior Descending: significant 80% stenosis, ALMAZ: 3 flow. * Proximal Right Coronary Artery: obstructive 60% stenosis, ALMAZ: 3 flow, iFR performed: ratio is 0.93. * Mid Circumflex: obstructive 70% stenosis, ALMAZ: 3 flow. * Posterior Descending Right: severe 90% stenosis, ALMAZ: 3 flow. * Posterior Descending Right: severe 90% stenosis, ALMAZ: 3 flow. * First Obtuse Marginal Branch Segment: severe 90% stenosis, ALMAZ: 3 flow. * Coronary angiography shows right dominance. PCI Status: Urgent Conclusions 1. There is severe coronary artery disease with four vessel disease. 2. All lutz are normal. 3. Hyperdynamic left ventricular systolic function. Ejection fraction of 70%. Recommendations * Continue current medical management and risk factor modification. Diagnostic RX Recommendation: CABG Ventriculography Ejection Fraction: 70.0 % Pressures Phase:Rest AO : 126 / 82 ( 101 ) @ 8:32:00 AM 145 / 86 ( 112 ) @ 8:51:00 AM 149 / 85 ( 113 ) @ 9:04:00 AM 148 / 85 ( 112 ) @ 9:04:00 AM LV : 138 / -4 / 20 @ 9:02:00 AM 141 / -1 / 22 @ 9:04:00 AM 143 / -1 / 21 @ 9:04:00 AM Valves Phase:DefaultPhase AV : 0.0 @ 8:08:39 AM AV Mean Gradient: 0.0 @ 8:08:39 AM Clinical Evaluation EBL: 5mL-10mL Procedural Details Procedure Consent Obtained. Pre-Procedure Time Out. Identified patient by full name and date of as verbalized by the patient/guarantor. Does the consent match the physician's order: Yes. Accurate & Complete Informed Consent: Yes. Inpatient/Outpatient History & Physical on Chart: Yes. If H&P is completed, is and addenduem needed: No. Visualize and Verify Site with Patient/Guarantor: N/A. Relevant Radiology Images available: Yes. The risks, benefits, and alternatives of sedation and/or procedure were discussed by physician. The patient agrees to continue. Procedure started. [facility] Clinical Fraility Score: 3: Managing Well. Certified Court Interpreter Indications: New Onset Angina/Abnormals stress test/CP. Chest Pain Symptom Assessment: Typical Angina Symptoms. Cardiovascular Instability: No. Correct patient, site and procedure confirmed by cath team. PERRLA. Strong, equal hand sas etl developer bilaterally. Lungs clear x 5 lobes. IV Site on Arrival: 20 gauge in the left wrist. IV Fluids: 0.9% NaCl at KVO. 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 Pre Procedural Pulses: bilateral radial was 3+. Pre Procedural Pulses: bilateral dorsalis pedis was 2+. Pre Procedural Pulses: bilateral posterior tibial was 1+. Oxygen started at 2liters/min via nasal canula. right groin was prepped with chloroprep then draped in the usual sterile fashion. right radial was prepped with chloroprep then draped in the usual sterile fashion. Baseline sample Acquired. HR: 84 BPM. Physician notified. Patient's family unavailable. Equipment: 6F - Radial. Cardiac Cath Pack. ACIST Manifold Kit Model BT 2000. Heparinized Saline (2 units/mL), 1000 mL bag. Physician arrived. Physician scrubbed in. Immediate Pre-Procedure Time Out. Correct Patient: Yes; Correct Procedure: Yes; Correct Site: Yes; Correct Patient Position: Yes; Correct Supplies: Yes; Dried Flammable Prep: Yes; Blood Products Available: N/A;. Lidocaine 1% infiltrated to the right radial. Arterial access obtained. A 5 iranian Braydon catheter in over the exchange J wire. Multiple views taken of right coronary artery. Catheter redirected to the LCA. Multiple views taken of left coronary artery. Catheter hooked up to heparinized saline to maintain patency. Catheter removed over the exchange J wire. 6 iranian AL 0.75 guide catheter was inserted over the exchange J wire. iFR of the RCA performed with a spot of 0.93 abd 0.99. ACT drawn. Results 207 seconds. Therapeutic limits - pre-heparin administration 90-150 seconds and monitoring heparin during a vascular procedure >250 seconds. iFR wire in. iFR wire out. Catheter removed over the exchange J wire. A 5 iranian Angled Pig catheter in over the exchange J wire. EDP Sample taken: LV 138/-5,20; HR: 69 BPM; SpO2: 100%. LV gram performed in SARGENT @ 10 mL/second for a total of 30 mL. EDP Sample taken: LV 141/-2,22; HR: 76 BPM; SpO2: 100%. Pullback taken: LV 143/-2,21; AO 149/85(113); Mean: 0mmHg, Peak to Peak: 0mmHg, SEP: 6sec/min; HR: 73 BPM; SpO2: 100%. Catheter removed over the exchange J wire. Dr. Enrique scrubbed out. A TR Band was successful obtaining hemostatsis at the Right Radial artery insertion site. Post Procedure: Pulses reassessed and unchanged. PERRLA. Strong, equal hand sas etl developer bilaterally. No VTE prophylaxis required. Medication's Wasted: Lidocaine 1% = 18 mL. Medication's Wasted: Nitro = 49.8 mg. Medication's Wasted: Heparin = 1000 units. Medication's Wasted: Other = Fentanyl 25 mcg. Total IV fluids: 50 mL. Post-op diagnosis: multivessel CAD/CABG referrla. Complications: none. Estimated blood loss: 5mL-10mL. Responsiveness - Normal response to verbal stimuli; alert and oriented, PERRLA. Airway - Unaffected, no intervention required; spontaneous ventilation. Circulation: W/N/L, pulses unchanged. Nausea/Vomiting: No. Procedure completed. Patient transferred by bed to 1st floor. Vital chart was stopped. Access Site Site: Right Radial artery Sheath Size: 6 Fr Hemostasis Method: TR Band Hemostasis Success: Successful Procedure Medications Start: 7:21 AM Stop: 7:21 AM Medication: Versed Amount: 2 mg Route: I.V. Start: 7:21 AM Stop: 7:21 AM Medication: Fentanyl Amount: 50 mcg Route: I.V. Start: 7:28 AM Stop: 7:28 AM Medication: Nitrogylcerin Amount: 200 mcg Route: I.A. Start: 7:31 AM Stop: 7:31 AM Medication: Heparin Amount: 5000 units Route: I.V. Start: 7:32 AM Stop: 7:32 AM Medication: Versed Amount: 1 mg Route: I.V. Start: 7:59 AM Stop: 7:59 AM Medication: Heparin Amount: 5000 units Route: I.V. Start: 8:00 AM Stop: 8:00 AM Medication: Fentanyl Amount: 25 mcg Route: I.V. I, the attending physician, have reviewed and verified all procedure medications. Yes, all medications given per verbal order History/Risk Factors Hypertension: Yes Dyslipidemia: No Peripheral Arterial Disease (PAD): No Myocardial Infarction (TX): No Obesity: Yes Renal Disease: No Tobacco Use: Current/Recent(w/in 1 year) Prior Interventions PCI: No CABG: No Valve Surgery: No Report Signatures Finalized by Heather Enrique MD on 01/25/2025 11:13 AM
--- NOTE | 2025-01-25 07:19 | W.PM.OPSUD ---
Surgery/Procedure H&P Update DATE OF PROCEDURE: January 25, 2025 DATE H&P PERFORMED: 01/24/25 H&P UPDATE INFORMATION: I have reviewed H&P completed within last 30 days, I have examined patient prior to procedure and No changes to prior documentation PREOP DIAGNOSIS: Abnormal stress test/stress PLANNED PROCEDURE: Left heart cath/PCI if indicated. PATIENT REASSESSED PRIOR TO SEDATION, WITH NO CHANGE NOTED: Yes PHYSICAL EXAM: alert, oriented x 3, clear to auscultation bilaterally, regular rate & rhythm and operative site marked AIRWAY EVAL/ANESTHESIA PLAN: ASA II, Risks, benefits & alternatives of sedation and/or procedure discussed and Patient agrees to continue as planned ADDITIONAL INFORMATION: Patient has been explained all risk-benefit and alternative for the procedure. Patient understand 2% risk of stroke major bleed. Patient understands expected risk of contrast-induced nephropathy hematoma infection vascular injury leading to urgent emergent surgery. Patient would like to proceed with it.
--- NOTE | 2025-01-25 08:23 | PM.PROC ---
Procedure Note: Date of procedure: 01/25/25 Pre-procedure diagnosis: Abnormal stress test Post-procedure diagnosis: same Procedure: Left heart cath was performed, it was suggestive of multivessel disease including significant mid LAD 80%, moderate size and caliber long obtuse marginal 90% stenosis, mid left circumflex moderate size and caliber long vessel 80%, RCA proximal 70% not significant by IFR and PDA proximal 90%, distal 70% Normal left ventricle ejection fraction 70% No wall motion abnormality Left ventricular end-diastolic pressure normal plan: Refer for CABG as an outpatient. continue aspirin statin beta-grabiel Coding Level of Care Code Acute Code for Chg Fwd
--- NOTE | 2025-01-25 08:33 | PC.NURSE ---
Patient received from cathode ray tube assembler via bed. Patient is s/p [facility] with right radial access and TR Band in place. No s/s of bleeding or hematoma formation observed. Instructed patient on site care and restrictions. Patient verbalized complete understanding. Will continue to monitor.
[2025-01-25] MEDS: pantoprazole 40 mg SDV IVP ×2 (09:21→17:14)
[2025-01-25] MEDS: amlodipine 5 mg Tablet 10 MG PO (09:21)
[2025-01-25] MEDS: nicotine 21 mg Patch 1 PATCH TRANSDERMA (09:21)
[2025-01-25] MEDS: carvedilol 3.125 mg Tablet PO ×2 (09:21→17:14)
--- NOTE | 2025-01-25 09:28 | PC.NURSE ---
tr band remains in place. Still no s/s of bleeding or hematoma formation observed. Pulses is palpable with warm extremity.
--- NOTE | 2025-01-25 10:27 | P.PN_ITS ---
<Statement entered by Heather Enrique MD - 01/26/25 11:11> Patient was evaluated and cared for in conjunction with an advanced practice practitioner. I personally examined the patient and reviewed the chart and all pertinent data including imaging, telemetry, and laboratory results. I discussed the patient in detail with the advanced practice practitioner. Please see their note for complete H&P testing result and agreed upon plan of care for the patient. Patient underwent left heart catheterization noted to have multivessel coronary artery disease. Ejection fraction was normal 60% GENERAL: Patient is alert, awake and oriented x3. HEART: Regular S1 and S2. No murmur, rub or gallop. LUNGS: Clear to auscultate bilaterally. CENTRAL NERVOUS SYSTEM: Grossly nonfocal. EXTREMITIES: Lower extremities with out edema bilaterally. Assessment and plan Coronary artery disease multivessel Hypertension Hyperlipidemia Acute kidney disease Continue aspirin statin beta-grabiel Echocardiogram to assess LV function or any valvular abnormality Patient has been referred for CABG to [facility] with Dr Luis Alberto vogt Subjective 2 Subjective: Patient had a left heart cath today. Creatinine has returned to normal. She has severe three-vessel coronary artery disease and needs CABG. At this time she wants to go to [facility]. She is not having any active chest pain at this time. Vitals/I&O/Wt Last Vital Signs Temp 97.8 F 01/25/25 04:00 Pulse 89 01/25/25 04:00 Resp 12 01/25/25 04:00 BP 115/72 01/25/25 04:00 Pulse Ox 99 01/25/25 04:00 O2 Del Method Room Air 01/25/25 04:00 01/24/25 01/25/25 01/25/25 22:59 06:59 14:59 Intake Total 600 / 1320 1300 / 2620 676.667 / 676.667 Balance 600 / 1320 1300 / 2620 676.667 / 676.667 Weight last 48 hrs Weight 216 lb 3.2 oz Weight 211 lb 9.6 oz Weight 216 lb Physical Exam 2 Narrative: General: No apparent distress, healthy appearing, well nourished HENMT: normoceophalic Muskuloskeletal: Full ROM Lymphatic: no lymphedema noted Respiratory: Normal respiratory effort, clear to auscultation bilaterally throughout all lung martins, no use of accessory muscles Cardio: No JVD, regular rate, regular rhythm, S1 S2 normal, no murmurs, peripheral pulses 1+ radial right, 2+ radial left Extremities: Full ROM, normal, normal capillary refill, no cyanosis or edema Neuro: Alert and oriented x4, no focal motor deficits Psych: Affect normal, denies suicidal ideation, mental status grossly normal Skin: right radial cath site with TR band on. No s/s of any hematoma present Data 01/25/25 05:55 01/25/25 05:55 A&P Assessment and plan (1) Chest pain: (2) Elevated troponin: (3) Abnormal stress test: (4) Nicotine dependence, unspecified, uncomplicated: (5) Sinus tachycardia: Plan At this time patient will be referred to [facility] for probable CABG surgery. Continue amlodipine 10 mg Coreg 3.125 twice daily. Will add atorvastatin 40 mg. Will add isosorbide 30 mg. At this time we will discuss with Dr. Vogt at [facility]. PDMP PDMP Reviewed: Not Reviewed Attestations 2 Medical Necessity Statement*: Deferred to primary. Coding Level of Care Code Acute Code for Chg Fwd Diagnoses Chest pain R07.9 Elevated troponin R79.89 Abnormal stress test R94.39 Nicotine dependence, unspecified, uncomplicated F17.200 Sinus tachycardia R00.0
[2025-01-25] MEDS: isosorbide mononitrate ER 30 mg Tablet PO (11:02)
--- NOTE | 2025-01-25 11:06 | PC.NURSE ---
initiated TR band removal at 0800 removing 1-2ml of air every 15-20min until all air removed at this time. No s/s of bleeding or hematoma formation observed. Patient denies pain to site. Pulse remains palpable with skin warm and pink. Covered site with 2x2 and bio-occlusive dressing. Reinforced site care instruction with restrictions. Instructed patient on new medication to include uses and side effects. Patient verbalized complete understanding.
[2025-01-25 11:50] LABS: Glucose Point of Care 196 mg/dL (70-110)
[2025-01-25] MEDS: insulin lispro 100 unit/1 mL SUBCUT ×2 (12:44→20:32)
--- NOTE | 2025-01-25 13:14 | P.PN_ITS ---
Subjective 2 Subjective: Patient was seen this morning, alert oriented x 3, following all commands, denies any chest pain, no palpitations, no shortness of breath, discussed coronary angiography findings, cardiology also present, patient will need CABG, patient would prefer [place], discussed inpatient transfer versus outpatient follow-up, will await cardiology's discussion with [facility] Vitals/I&O/Wt Last Vital Signs Temp 98.0 F 01/25/25 11:02 Pulse 85 01/25/25 11:02 Resp 15 01/25/25 11:02 BP 152/84 01/25/25 11:02 Pulse Ox 98 01/25/25 11:02 O2 Del Method Room Air 01/25/25 11:02 01/24/25 01/25/25 01/25/25 22:59 06:59 14:59 Intake Total 600 / 1320 1300 / 2620 676.667 / 676.667 Balance 600 / 1320 1300 / 2620 676.667 / 676.667 Weight last 48 hrs Weight 98.067 kg Weight 95.98 kg Weight 97.976 kg Physical Exam 2 Const: COMMON NORMALS: no acute distress and patient oriented x3 Resp: COMMON NORMALS: normal respiratory effort, No retractions, No use of accessory muscles and clear to auscultation bilaterally AUSCULTATION: clear to auscultation bilaterally Cardio: COMMON NORMALS: regular rate, regular rhythm, S1 normal heart sound present and S2 normal heart sound present RATE: regular rate RHYTHM: r egular rhythm HEART SOUNDS: S1 normal heart sound present and S2 normal heart sound present GI: COMMON NORMALS: Normal to inspection, nondistended, normoactive bowel sounds present and non-tender Extremity: COMMON NORMALS: no pedal edema Neuro: COMMON NORMALS: patient oriented x3 Psych: COMMON NORMALS: mental status grossly normal Data 01/25/25 05:55 01/25/25 05:55 A&P Assessment and plan (1) Generalized anxiety disorder: (2) Sinus tachycardia: (3) Elevated troponin: (4) Anginal equivalent: Plan Chest pain, CAD -Coronary angiography Left heart cath was performed, it was suggestive of multivessel disease including significant mid LAD 80%, moderate size and caliber long obtuse marginal 90% stenosis, mid left circumflex moderate size and caliber long vessel 80%, RCA proximal 70% not significant by IFR and PDA proximal 90%, distal 70% Normal left ventricle ejection fraction 70% -Refer for CABG inpatient transfer versus outpatient follow-up Active smoker: Smoking cessation counseling Type II diabetes: -Hemoglobin A1c 7.2 -Continue low-dose sliding scale DVT prophylaxis: Lovenox Cardiac diet PDMP PDMP Reviewed: Not Reviewed Attestations 2 Medical Necessity Statement*: Patient requires hospitalization for chest pain, requiring CABG Diagnoses Generalized anxiety disorder F41.1 Sinus tachycardia R00.0 Elevated troponin R79.89 Anginal equivalent I20.89
[2025-01-25] MEDS: LORazepam 2 mg/mL INJ 1 mL 0.5 MG IVP (13:31)
[2025-01-25 16:32] LABS: Glucose Point of Care 134 mg/dL (70-110)
--- NOTE | 2025-01-25 20:18 | PC.NURSE ---
Alondra RN from the call center at [facility] called and said that [facility] is on the waiting list for a bed. Dr. Rodríguez, CT surgeon has excepted her. Updated vitals and labs were given. The call center will call when a bed is available.
[2025-01-25 20:20] LABS: Glucose Point of Care 170 mg/dL (70-110)
[2025-01-25] MEDS: atorvastatin 40 mg Tablet PO (20:32)
[2025-01-26] VITALS (7 sets, daily range): BP systolic 103–158; BP diastolic 59–88; PULSE 75–98; RESP 14–26; TEMP 36.4–36.8; O2SAT 95–100
[2025-01-26 03:48] LABS: Basophils # 0.1 10^3/uL (0.0-0.1); Basophils % 1.4 %; Eosinophils # 0.9 10^3/uL (0.0-0.8); Eosinophils % 8.5 %; Hematocrit 39.6 % (36-47); Lymphocytes # 3.6 10^3/uL (0.8-4.8); Lymphocytes % 35.5 %; Mean Corpuscular HGB Conc 33.1 g/dL (30-55); Mean Corpuscular Hemoglobin 29.1 pg (27-33); Mean Platelet Volume 12.6 fL (7.4-10.4); Monocytes % 9.4 %; Nucleated Red Blood Cells % 0 %; Platelet Count 244 10^3/cmm (157-399); Red Cell Distribution Width 14.5 % (12.1-15.1); White Blood Count 10.21 10^3/uL (3.29-11.43)
[2025-01-26 04:16] LABS: Anion Gap 10.6 (5-19); Blood Urea Nitrogen 15 mg/dL (6-20); Calcium 8.3 mg/dL (8.5-10.5); Carbon Dioxide 27 mmol/L (22-29); Chloride 105 mmol/L (98-107); Creatinine Clr Calc Pharmacy 132.9161; Glomerular Filtration Rate 106.7 mL/min (90-130); Glucose 162 mg/dL (65-115); Osmolality Calculated 292 mOsm/kg (285-295); Potassium 3.6 mmol/L (3.5-5.1); Sodium 139 mmol/L (136-145)
[2025-01-26 04:23] LABS: NT Pro B Type Natriuretic Pept < 36 pg/mL (0-125)
[2025-01-26] MEDS: enoxaparin 40 mg/0.4 mL Syringe SUBCUT (05:26)
[2025-01-26 06:28] LABS: Glucose Point of Care 134 mg/dL (70-110)
[2025-01-26] MEDS: carvedilol 3.125 mg Tablet PO ×2 (08:04→17:15)
[2025-01-26] MEDS: amlodipine 5 mg Tablet 10 MG PO (08:04)
[2025-01-26] MEDS: pantoprazole 40 mg SDV IVP ×2 (08:04→17:15)
[2025-01-26] MEDS: isosorbide mononitrate ER 30 mg Tablet PO (08:04)
[2025-01-26] MEDS: nicotine 21 mg Patch 1 PATCH TRANSDERMA (08:04)
--- NOTE | 2025-01-26 10:46 | P.PN_ITS ---
<Statement entered by Heather Enrique MD - 01/28/25 17:10> Patient was evaluated and cared for in conjunction with an advanced practice practitioner. I personally examined the patient and reviewed the chart and all pertinent data including imaging, telemetry, and laboratory results. I discussed the patient in detail with the advanced practice practitioner. Please see their note for complete H&P testing result and agreed upon plan of care for the patient. Vitals/I&O/Wt Last Vital Signs Temp 97.9 F 01/26/25 08:00 Pulse 84 01/26/25 08:00 Resp 20 H 01/26/25 08:00 BP 108/64 01/26/25 08:00 Pulse Ox 98 01/26/25 08:00 O2 Del Method Room Air 01/26/25 08:00 01/25/25 01/26/25 01/26/25 22:59 06:59 14:59 Intake Total 1480 / 2396.667 120 / 2516.667 120 / 120 Balance 1480 / 2396.667 120 / 2516.667 120 / 120 Weight last 48 hrs Weight 217 lb Weight 216 lb 3.2 oz Physical Exam 2 Narrative: General: No apparent distress, healthy appearing, well nourished HENMT: normoceophalic Muskuloskeletal: Full ROM Lymphatic: no lymphedema noted Respiratory: Normal respiratory effort, clear to auscultation bilaterally throughout all lung martins, no use of accessory muscles Cardio: No JVD, regular rate, regular rhythm, S1 S2 normal, no murmurs, peripheral pulses 1+ radial right, 2+ radial left Extremities: Full ROM, normal, normal capillary refill, no cyanosis or edema Neuro: Alert and oriented x4, no focal motor deficits Psych: Affect normal, denies suicidal ideation, mental status grossly normal Skin: right radial cath site with TR band on. No s/s of any hematoma present Data 01/26/25 03:40 01/26/25 03:40 A&P Assessment and plan (1) Chest pain: (2) Elevated troponin: (3) Abnormal stress test: (4) Nicotine dependence, unspecified, uncomplicated: (5) Sinus tachycardia: Plan Patient awaiting a bed at [facility]. Continue amlodipine 10 mg Coreg 3.125 twice daily. Will add atorvastatin 40 mg. Will add isosorbide 30 mg. At this time we will discuss with Dr. Rodríguez at [facility]. PDMP PDMP Reviewed: Not Reviewed Attestations 2 Medical Necessity Statement*: Deferred to primary. Coding Level of Care Code Acute Code for Chg Fwd Diagnoses Chest pain R07.9 Elevated troponin R79.89 Abnormal stress test R94.39 Nicotine dependence, unspecified, uncomplicated F17.200 Sinus tachycardia R00.0
[2025-01-26] MEDS: ALPRAZolam 0.5 mg Tablet PO (11:42)
[2025-01-26] MEDS: HYDROcodone-acetaminophen 5-325 mg Tablet 1 TAB PO (11:42)
[2025-01-26 12:02] LABS: Glucose Point of Care 141 mg/dL (70-110)
--- NOTE | 2025-01-26 12:37 | P.PN_ITS ---
Subjective 2 Subjective: Patient was seen this morning, she is alert oriented x 3, following all commands, no chest pain overnight, she is awaiting a bed at [place] Vitals/I&O/Wt Last Vital Signs Temp 97.5 F L 01/26/25 11:50 Pulse 75 01/26/25 11:50 Resp 16 01/26/25 11:50 BP 140/74 01/26/25 11:50 Pulse Ox 100 01/26/25 11:50 O2 Del Method Room Air 01/26/25 11:50 01/25/25 01/26/25 01/26/25 22:59 06:59 14:59 Intake Total 1480 / 2396.667 120 / 2516.667 120 / 120 Balance 1480 / 2396.667 120 / 2516.667 120 / 120 Weight last 48 hrs Weight 98.43 kg Weight 98.067 kg Physical Exam 2 Const: COMMON NORMALS: no acute distress and patient oriented x3 Resp: COMMON NORMALS: normal respiratory effort, No retractions, No use of accessory muscles and clear to auscultation bilaterally AUSCULTATION: clear to auscultation bilaterally Cardio: COMMON NORMALS: regular rate, regular rhythm, S1 normal heart sound present and S2 normal heart sound present RATE: regular rate RHYTHM: r egular rhythm HEART SOUNDS: S1 normal heart sound present and S2 normal heart sound present GI: COMMON NORMALS: Normal to inspection, nondistended, normoactive bowel sounds present and non-tender Extremity: COMMON NORMALS: no pedal edema Neuro: COMMON NORMALS: patient oriented x3 Psych: COMMON NORMALS: mental status grossly normal Data 01/26/25 03:40 01/26/25 03:40 A&P Assessment and plan (1) Generalized anxiety disorder: (2) Sinus tachycardia: (3) Elevated troponin: (4) Anginal equivalent: Plan Chest pain, CAD -Coronary angiography Left heart cath was performed, it was suggestive of multivessel disease including significant mid LAD 80%, moderate size and caliber long obtuse marginal 90% stenosis, mid left circumflex moderate size and caliber long vessel 80%, RCA proximal 70% not significant by IFR and PDA proximal 90%, distal 70% Normal left ventricle ejection fraction 70% -Patient has been accepted for transfer to [place], awaiting a bed for consideration for CABG Active smoker: Smoking cessation counseling Type II diabetes: -Hemoglobin A1c 7.2 -Continue low-dose sliding scale DVT prophylaxis: Lovenox Cardiac diet PDMP PDMP Reviewed: Not Reviewed Attestations 2 Medical Necessity Statement*: Patient with triple-vessel CAD, awaiting bed at [place] for transfer Diagnoses Generalized anxiety disorder F41.1 Sinus tachycardia R00.0 Elevated troponin R79.89 Anginal equivalent I20.89
[2025-01-26] MEDS: insulin lispro 100 unit/1 mL SUBCUT (17:15)
[2025-01-26 17:43] LABS: Glucose Point of Care 229 mg/dL (70-110)
--- NOTE | 2025-01-26 18:40 | PC.NURSE ---
patient transferred to [facility] in [facility]. Report called to Juanis Boone RN. Patient taken by Jayjay Rodrigues. Patient denies pain or needs. No distress observed.
--- NOTE | 2025-01-27 08:37 | P.TS_ITS ---
Transfer Summary Providers Date of Admission: 01/24/25 12:30 Date of Discharge/Transfer: 01/26/25 Attending Provider at Admission: Heather Marinelli MD Attending Provider at Transfer: Austin Dinh MD Primary Care Provider: Demetra Merino DO Transfer Plans: Anticipated date of transfer: 02/12/25 . Diagnoses at Discharge Discharge Diagnosis (1) Generalized anxiety disorder: Status: Acute (2) Sinus tachycardia: Status: Acute (3) Elevated troponin: Status: Acute (4) Anginal equivalent: Status: Acute Reason for Visit Reason for Visit Dr Fuentes Possible Heart attack Hospital Course Hospital Course This is a 49-year-old female with past medical history of hypertension, diabetes, obesity, active smoker who presents [facility] for chest pain Patient was admitted to [facility] for chest pain Chest pain, CAD -Coronary angiography Left heart cath was performed, it was suggestive of multivessel disease including significant mid LAD 80%, moderate size and caliber long obtuse marginal 90% stenosis, mid left circumflex moderate size and caliber long vessel 80%, RCA proximal 70% not significant by IFR and PDA proximal 90%, distal 70% Normal left ventricle ejection fraction 70% -Patient was evaluated by cardiology as above, recommended evaluation for CABG -Patient has been accepted for transfer to [place], awaiting a bed for consideration for CABG, transferred to [place] 01/26/2025 Physical Exam Const: COMMON NORMALS: no acute distress and patient oriented x3 Resp: COMMON NORMALS: normal respiratory effort, No retractions, No use of accessory muscles and clear to auscultation bilaterally AUSCULTATION: clear to auscultation bilaterally Cardio: COMMON NORMALS: regular rate, regular rhythm, S1 normal heart sound present and S2 normal heart sound present RATE: regular rate RHYTHM: regular rhythm HEART SOUNDS: S1 normal heart sound present and S2 normal heart sound present GI: COMMON NORMALS: Normal to inspection, nondistended, normoactive bowel sounds present and non-tender Extremity: COMMON NORMALS: no pedal edema Neuro: COMMON NORMALS: patient oriented x3 Psych: COMMON NORMALS: mental status grossly normal TS Data Studies Completed and Pending Completed Studies During Hospitalization Category Date Time 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 echo complete* [id number] Routine Ultrasound 01/24/25 00:23 Completed US renal BI* [id number] Routine Ultrasound 01/24/25 16:56 Completed Laboratory Last Values WBC 10.21 10^3/uL (3.29-11.43) 01/26/25 03:40 RBC 4.50 10^6/uL (3.85-5.65) 01/26/25 03:40 Hgb 13.10 g/dL (11.27-16.99) 01/26/25 03:40 Hct 39.6 % (36-47) 01/26/25 03:40 MCV 88.0 fl (85-98) 01/26/25 03:40 MCH 29.1 pg (27-33) 01/26/25 03:40 MCHC 33.1 g/dL (30-55) 01/26/25 03:40 RDW 14.5 % (12.1-15.1) 01/26/25 03:40 Plt Count 244 10^3/cmm (157-399) 01/26/25 03:40 MPV 12.6 fL (7.4-10.4) H 01/26/25 03:40 Neut % (Auto) 45.0 % 01/26/25 03:40 Lymph % (Auto) 35.5 % 01/26/25 03:40 [place] % (Auto) 9.4 % 01/26/25 03:40 Eos % (Auto) 8.5 % 01/26/25 03:40 Baso % (Auto) 1.4 % 01/26/25 03:40 Neut # (Auto) 4.60 10^3/uL (1.8-7.7) 01/26/25 03:40 Lymph # (Auto) 3.6 10^3/uL (0.8-4.8) 01/26/25 03:40 Juncos # (Auto) 1.0 10^3/uL (0.2-0.9) H 01/26/25 03:40 Eos # (Auto) 0.9 10^3/uL (0.0-0.8) H 01/26/25 03:40 Baso # (Auto) 0.1 10^3/uL (0.0-0.1) 01/26/25 03:40 Nucleated RBC % (auto) 0 % 01/26/25 03:40 Nucleated RBCs # 0.0 /100WBC 01/26/25 03:40 PT 12.70 SECONDS (12.1-14.9) 01/25/25 05:55 INR 0.89 (0.8-1.2) 01/25/25 05:55 D-Dimer 0.42 ug/mLFEU (0-0.59) 01/23/25 20:01 Sodium 139 mmol/L (136-145) 01/26/25 03:40 Potassium 3.6 mmol/L (3.5-5.1) 01/26/25 03:40 Chloride 105 mmol/L (98-107) 01/26/25 03:40 Carbon Dioxide 27 mmol/L (22-29) 01/26/25 03:40 Anion Gap 10.6 (5-19) 01/26/25 03:40 BUN 15 mg/dL (6-20) 01/26/25 03:40 Creatinine 0.6 mg/dL (0.5-0.9) 01/26/25 03:40 GFR Calculation 106.7 mL/min (90-130) 01/26/25 03:40 Glucose 162 mg/dL (65-115) H 01/26/25 03:40 POC Glucose 229 mg/dL (70-110) H 01/26/25 17:02 Estimat Average Glucose 160 01/24/25 02:30 Hemoglobin A1c 7.2 % (4.0-6.0) H 01/24/25 02:30 Calculated Osmolality 292 mOsm/kg (285-295) 01/26/25 03:40 Calcium 8.3 mg/dL (8.5-10.5) L 01/26/25 03:40 Magnesium 2.2 mg/dL (1.7-2.3) 01/24/25 02:30 Total Bilirubin 0.6 mg/dL (0.15-1.2) 01/23/25 20:01 AST 18 U/L (0-32) 01/23/25 20:01 ALT 28 U/L (0-33) 01/23/25 20:01 Alkaline Phosphatase 164 U/L (35-105) H 01/23/25 20:01 Troponin T Baseline 29 ng/L (0-10) H 01/23/25 20:01 Troponin T 120 Minute 28.09 ng/L (0-10) H 01/23/25 21:51 Delta Troponin T -0.91 ABS# (0-10) L 01/23/25 21:51 Troponin T Hi Sens 6Hr 30.04 ng/L (0-10) H 01/24/25 02:30 Troponin T Hi Sens 6Hr Delta 1.04 ng/L (0-12) 01/24/25 02:30 C-Reactive Protein 17.5 mg/L (0.0-4.9) H 01/23/25 20:01 NT-Pro-B Natriuret Pep < 36 pg/mL (0-125) 01/26/25 03:40 Total Protein 7.5 g/dL (6.6-8.7) 01/23/25 20:01 Albumin 4.5 g/dL (3.5-5.2) 01/23/25 20:01 Globulin 3.0 g/dL (1.3-4.6) 01/23/25 20:01 Triglycerides 152 mg/dL (0-150) H 01/24/25 02:30 Cholesterol 153 mg/dL (0-200) 01/24/25 02:30 LDL Cholesterol, Calc 85 mg/dL (50-129) 01/24/25 02:30 HDL Cholesterol 38 mg/dL (60-100) L 01/24/25 02:30 LDL/HDL Ratio 2.24 RATIO (0.00-3.22) 01/24/25 02:30 Cholesterol/HDL Ratio 4.03 mg/dL (0.0-4.40) 01/24/25 02:30 Lipase 24 U/L (13-60) 01/23/25 20:01 Influenza A (PCR) Negative (Negative) 01/23/25 21:09 Influenza Type B (PCR) Negative (Negative) 01/23/25 21:09 RSV (PCR) Negative (Negative) 01/23/25 21:09 SARS-CoV-2 (PCR) Negative (Negative) 01/23/25 21:09 Radiology Impressions Chest X-Ray 01/23/25 19:41 IMPRESSION: No acute findings. Renal Ultrasound 01/24/25 16:56 IMPRESSION: No hydronephrosis or sonographic sequela of chronic renal disease. Recent Clincial Data Last Vital Signs Temp 98.0 F 01/26/25 16:00 Pulse 98 01/26/25 18:43 Resp 26 H 01/26/25 16:00 BP 158/88 01/26/25 18:43 Pulse Ox 95 01/26/25 18:43 O2 Del Method Room Air 01/26/25 16:00 Intake & Output/Weight 01/25/25 01/26/25 01/27/25 01/28/25 06:59 06:59 06:59 06:59 Intake Total 2620 / 2620 2516.667 / 2516.667 360 / 360 Balance 2620 / 2620 2516.667 / 2516.667 360 / 360 Weight 98.067 kg 98.43 kg Vitals Last Vital Signs Temp 98.0 F 01/26/25 16:00 Pulse 98 01/26/25 18:43 Resp 26 H 01/26/25 16:00 BP 158/88 01/26/25 18:43 Pulse Ox 95 01/26/25 18:43 O2 Del Method Room Air 01/26/25 16:00 TS Medications Medications Discontinued Medications Acetaminophen (Acetaminophen 500 Mg Tablet) 500 mg PO Q4H PRN PRN Reason: fever Acetaminophen (Acetaminophen 325 Mg Tablet) 650 mg PO Q6H PRN PRN Reason: MILD PAIN Hydrocodone Bitart/Acetaminophen (Hydrocodone-Acetaminophen 5-325 Mg Tablet) 1 tab PO Q4H PRN PRN Reason: MODERATE TO SEVERE PAIN Last Admin: 01/26/25 11:42 Dose: 1 tab Al Hydrox/Mg Hydrox/Simethicone (Btux-Igb-Oryljodmc-Shanita 30 Ml Udc) 30 ml PO Q15M PRN PRN Reason: INDIGESTION Albuterol/Ipratropium (Ipratropium-Albuterol 3 Ml Neb) 3 ml INHALATION Q6H PRN PRN Reason: SHORTNESS OF BREATH Alprazolam (Alprazolam 0.5 Mg Tablet) 0.5 mg PO TID PRN PRN Reason: ANXIETY Last Admin: 01/26/25 11:42 Dose: 0.5 mg Aminophylline (Aminophylline 25 Mg/Ml Sdv 20 Ml) 25 mg IVP Q2M PRN PRN Reason: see dose instructions Stop: 01/25/25 06:32 Last Admin: 01/24/25 07:09 Dose: 25 mg Amlodipine Besylate (Amlodipine 5 Mg Tablet) 10 mg PO DAILY [facility] Last Admin: 01/26/25 08:04 Dose: 10 mg Aspirin (Aspirin 81 Mg Chew Tablet) 324 mg PO NOW ONE Stop: 01/23/25 20:17 Last Admin: 01/23/25 20:53 Dose: 324 mg Aspirin (Aspirin 325 Mg Tablet) 325 mg PO ONCE ONE Stop: 01/25/25 06:01 Last Admin: 01/25/25 06:10 Dose: 325 mg Atorvastatin Calcium (Atorvastatin 40 Mg Tablet) 40 mg PO BEDTIME [facility] Last Admin: 01/25/25 20:32 Dose: 40 mg Atropine Sulfate (Atropine 1 Mg/Ml Sdv 1 Ml) 0.5 mg IVP PRN PRN PRN Reason: Symptomatic bradycardia Carvedilol (Carvedilol 3.125 Mg Tablet) 3.125 mg PO BID [facility] Last Admin: 01/26/25 17:15 Dose: 3.125 mg Cyclobenzaprine HCl (Cyclobenzaprine 10 Mg Tablet) 10 mg PO TID PRN PRN Reason: Pain Diphenhydramine HCl (Diphenhydramine 50 Mg/Ml Sdv 1ml) 12.5 mg IVP ONCE ONE Stop: 01/24/25 00:36 Last Admin: 01/24/25 01:57 Dose: 12.5 mg Diphenhydramine HCl (Diphenhydramine 50 Mg Capsule) 50 mg PO ONCE ONE Stop: 01/25/25 06:01 Last Admin: 01/25/25 06:10 Dose: 50 mg Enoxaparin Sodium (Enoxaparin 40 Mg/0.4 Ml Syringe) 40 mg SUBCUT Q24H [facility] Last Admin: 01/26/25 05:26 Dose: 40 mg Fentanyl (Fentanyl 50 Mcg/Ml Inj 2ml) Confirm Administered Dose 100 mcg .ROUTE .STK-MED ONE Stop: 01/25/25 06:33 Fentanyl (Fentanyl 50 Mcg/Ml Inj 2ml) 50 mcg IVP PRN PRN PRN Reason: Prior to sheath removal Glucagon (Glucagon 1 Mg/Ml Kit 1 Ml) 1 mg IM ONCE PRN; Protocol PRN Reason: Adult Acute Hypoglycemia Nursing Prot. Heparin Sodium (Porcine) (Heparin 5,000 Unit/Ml Inj 1 Ml) Confirm Administered Dose 10,000 unit .ROUTE .[facility] ONE Stop: 01/25/25 06:33 Heparin Sodium (Porcine) (Heparin 5,000 Unit/Ml Inj 1 Ml) Confirm Administered Dose 5,000 unit .ROUTE .[facility] ONE Stop: 01/25/25 08:00 Hydrochlorothiazide (Hydrochlorothiazide 25 Mg Tablet) 25 mg PO DAILY [facility] Last Admin: 01/24/25 11:03 Dose: Not Given Dextrose (D5w) 500 mls @ 0 mls/hr IV ONCE PRN; Protocol PRN Reason: Adult Acute Hypoglycemia Prot Dextrose (D10w) 125 mls @ 750 mls/hr IV PRN PRN; Protocol PRN Reason: Adult Acute Hypoglycemia Nursing Protocol Dextrose (D10w) 250 mls @ 1,000 mls/hr IV PRN PRN; Protocol PRN Reason: Adult Acute Hypoglycemia Nursing Protocol Sodium Chloride (Sodium Chloride 0.9%) 1,000 mls @ 100 mls/hr IV .Q10H [facility] Last Infusion: 01/25/25 09:20 Dose: Infused Lidocaine HCl (Xylocaine) Confirm Administered Dose 20 mls @ as directed .ROUTE .[facility] ONE Stop: 01/25/25 06:33 Sodium Chloride (Sodium Chloride 0.9%) 1,000 mls @ 100 mls/hr IV .Q10H [facility] Last Infusion: 01/25/25 17:56 Dose: Infused Insulin Human Lispro (Insulin Lispro 100 Unit/1 Ml) 0 unit SUBCUT WM&BEDTIME [facility]; Protocol Last Admin: 01/26/25 17:15 Dose: 8 unit Isosorbide Mononitrate (Isosorbide Mononitrate Er 30 Mg Tablet) 30 mg PO DAILY [facility] Last Admin: 01/26/25 08:04 Dose: 30 mg Lisinopril (Lisinopril 20 Mg Tablet) 20 mg PO DAILY [facility] Last Admin: 01/24/25 11:03 Dose: Not Given Lorazepam (Lorazepam 2 Mg/Ml Inj 1 Ml) 0.5 mg IVP Q8H PRN PRN Reason: ANXIETY Last Admin: 01/25/25 13:31 Dose: 0.5 mg Magnesium Hydroxide (Magnesium Hydroxide 30 Ml Udc) 30 ml PO DAILY PRN PRN Reason: CONSTIPATION Metoprolol Tartrate (Metoprolol Tartrate 1 Mg/1 Ml Sdv 5 Ml) 5 mg IVP ONCE ONE Stop: 01/23/25 20:17 Last Admin: 01/23/25 20:56 Dose: 5 mg Midazolam HCl (Midazolam 1 Mg/Ml Inj 2 Ml) Confirm Administered Dose 2 mg .ROUTE .STK-MED ONE Stop: 01/25/25 06:33 Naloxone HCl (Naloxone 0.4 Mg/Ml Sdv) 0.1 mg IVP Q2M PRN PRN Reason: RESPIRATORY RATE < 8/MIN Nicotine (Nicotine 21 Mg Patch) 1 patch TRANSDERMA DAILY [facility] Last Admin: 01/26/25 08:04 Dose: 1 patch Nicotine Polacrilex (Nicotine 4 Mg Lozenge) 4 mg MUCOUS MEM Q4H PRN PRN Reason: NICOTINE CRAVINGS Nitroglycerin (Nitroglycerin 0.4 Mg Sublingual Tablet) 0.4 mg SUBLINGUAL Q5M PRN PRN Reason: CHEST PAIN Stop: 01/25/25 06:32 Nitroglycerin (Nitroglycerin 5 Mg/Ml Sdv 10 Ml) Confirm Administered Dose 50 mg .ROUTE .STK-MED ONE Stop: 01/25/25 06:33 Nitroglycerin (Nitroglycerin 0.4 Mg Sublingual Tablet) 0.4 mg SUBLINGUAL Q5M PRN PRN Reason: CHEST PAIN Ondansetron HCl (Ondansetron 2 Mg/Ml Sdv 2 Ml) 4 mg IVP ONCE ONE Stop: 01/23/25 20:31 Last Admin: 01/23/25 20:55 Dose: 4 mg Ondansetron HCl (Ondansetron 2 Mg/Ml Sdv 2 Ml) 4 mg IVP Q6H PRN PRN Reason: NAUSEA AND VOMITING Ondansetron HCl (Ondansetron 2 Mg/Ml Sdv 2 Ml) 4 mg IVP Q2M PRN PRN Reason: NAUSEA Last Admin: 01/24/25 07:05 Dose: 4 mg Pantoprazole Sodium (Pantoprazole 40 Mg Sdv) 40 mg IVP BID [facility] Pantoprazole Sodium (Pantoprazole 40 Mg Sdv) 40 mg IVP BID [facility] Last Admin: 01/26/25 17:15 Dose: 40 mg Pneumococcal Polyvalent Vaccine (Pneumococcal (23 Valent) Sdv 0.5 Ml) 0.5 ml IM .ONCE ONE Stop: 01/24/25 09:01 Last Admin: 01/24/25 11:03 Dose: Not Given Regadenoson (Regadenoson 0.4 Mg/5 Ml Syringe) 0.4 mg IVP ONCE PRN PRN Reason: Lexiscan Stress Test Last Admin: 01/24/25 06:56 Dose: 0.4 mg Temazepam (Temazepam 15 Mg Capsule) 15 mg PO BEDTIME PRN PRN Reason: INSOMNIA Allergies No Known Allergies Allergy (Verified 01/23/25 19:52) Home Medications metformin 500 mg tablet,extended release 24 hr 500 mg PO BID 04/02/20 [History Confirmed 01/24/25] amlodipine 5 mg tablet 5 mg PO DAILY 01/24/25 [History Confirmed 01/24/25] duloxetine 60 mg capsule,delayed release (Cymbalta) 60 mg PO BID 01/24/25 [History Confirmed 01/24/25] Discharge Plan Discharge Patient Disposition: Xfer Short-Term Hosp Condition: Stable Prescriptions: New nitroglycerin 0.4 mg Tablet, Sublingual 0.4 mg sublingual Q5M PRN (Reason: Chest Pain) Qty: 20 0RF atenolol 25 mg tablet 25 mg PO DAILY Qty: 90 0RF Continued metformin 500 mg tablet extended release 24 hr 500 mg PO BID amlodipine 5 mg Tablet 5 mg PO DAILY duloxetine [Cymbalta] 60 mg Capsule,Delayed Release(Dr/Ec) 60 mg PO BID Referrals: Demetra Merino DO [Primary Care Provider] - 4-7 days Discharge Diet: Cardiac Discharge Activity: Increase activity as tolerated Patient Instructions: Cardiac Rehabilitation (DC) Transfer Attestations Time Spent in Transfer Care: greater than 30 min Quality Metrics Clinical Quality Measures [ No reported AMI, CVA or VTE this stay] Coding Level of Care Code Acute Code for Chg Fwd Diagnoses Generalized anxiety disorder F41.1 Sinus tachycardia R00.0 Elevated troponin R79.89 Anginal equivalent I20.89
== END 2025-01-26 18:45 | disposition short-term general hospital (02) | DRG 287 ==
LOC: ER 23:24 → MEDSURG 01-24 00:05 → CSU 01-25 08:09 → MEDSURG 01-25 10:01
PROVIDERS: Emergency Medicine; Internal Medicine; Internal Medicine Cardiovascular Disease; Nurse Practitioner Family; Admitting Provider Internal Medicine; Emergency Provider Emergency Medicine; PCP Family Medicine; Visit Provider Family Medicine
PROC: 4A023N7 Measurement of Cardiac Sampling and Pressure, Left Heart, Percutaneous Approach (ICD-10-PCS; principal; 2025-01-25 07:00)
DX: I25.118 Atherosclerotic heart disease of native coronary artery with other forms of angina pectoris (principal); N17.9 Acute kidney failure, unspecified; F41.1 Generalized anxiety disorder; R00.0 Tachycardia, unspecified; R79.89 Other specified abnormal findings of blood chemistry; E11.9 Type 2 diabetes mellitus without complications; I10 Essential (primary) hypertension; E66.01 Morbid (severe) obesity due to excess calories; E78.5 Hyperlipidemia, unspecified; F17.210 Nicotine dependence, cigarettes, uncomplicated; Z68.36 Body mass index [BMI] 36.0-36.9, adult; Z79.899 Other long term (current) drug therapy; Z79.84 Long term (current) use of oral hypoglycemic drugs; Z88.5 Allergy status to narcotic agent; Z88.8 Allergy status to other drugs, medicaments and biological substances; Z11.52 Encounter for screening for COVID-19
CPT/HCPCS: 36415; 36416; 71045; 76770; 78452; 80048; 80053; 80061; 82962; 83036; 83690; 83735; 83880; 84484; 85025; 85347; 85378; 85610; 86140; 87637; 93005; 93017; 93306; 93458; 93571; 96372; 96374; 96375; 96376; 99152; 99153; 99285; A9500; C1769; C1887; C1894; G0378; J0280; J1200; J1644; J1650; J1815; J2060; J2250; J2405; J2470; J2785; J3010; J3490; J7030; J9999; Q0163; Q9967

== ENCOUNTER 2025-02-13 14:55 | Emergency (ER) | payer BC, MEDICAID, SELFPAY ==
[2025-02-13 15:06] VITALS: BP 111/62; PULSE 111; RESP 18; TEMP 36.8; O2SAT 92; BMI 36.2
--- NOTE | 2025-02-13 15:19 | W.ED.SKABFB ---
HPI - Skin/Abscess/Foreign Bdy General: Chief complaint: Skin/Abscess/Foreign Body Stated complaint: left iv in arm from [facility] Time Seen by Provider: 02/13/25 15:07 Source: patient Mode of arrival: ambulatory Limitations: no limitations History of Present Illness: Patient is a 49-year-old female presents to ED today requesting an IV be removed that was inadvertently left in her left arm at her recent [facility] hospitalization. Patient states she was transferred from our facility there for CABG. patient states she has follow-up with her primary care this week. She believes her follow-up with her cardiac surgeon is in approximately 2 weeks. She would like me to look at her chest incisions as well as vein grafting incision to her left forearm. She has IV currently in place to her left upper arm. MD complaint: other (IV left in arm) Relieving factors: none Exacerbating factors: none Context: other (recent hospitalization) Associated symptoms: Reports no associated symptoms; Deny fever(s) Treatments prior to arrival: none Related Data Home Medications ?Medication ?Instructions ?Recorded ?Confirmed metformin 500 mg tablet,extended 500 mg PO BID 04/02/20 01/24/25 release 24 hr amlodipine 5 mg tablet 5 mg PO DAILY 01/24/25 01/24/25 duloxetine 60 mg capsule,delayed 60 mg PO BID 01/24/25 01/24/25 release (Cymbalta) Allergies Allergy/AdvReac Type Severity Reaction Status Date / Time No Known Allergies Allergy Verified 02/13/25 15:09 Review of Systems Const: Denies: fever(s) Card: Denies: chest pain Resp: Denies: dyspnea Musc: Reports: other (IV to L upper arm; vein harvest incision L volar forearm) Neuro: Denies: numbness in extremities, weakness in extremities or sensory changes PFSH ED PFSH: Medical History Post-traumatic stress disorder, unspecified FHx: cholecystectomy Carpal tunnel syndrome delivery delivered Surgical History Postoperative state H/O: hysterectomy Hx of tonsillectomy H/O dilation and curettage Social History Quit status (tobacco/nicotine): has tried quititng Number of times tried to quit tobacco: 5 Second hand smoke exposure: No Current gender identity: Female Physical Exam Const: COMMON NORMALS: no acute distress, average body habitus, no limitations, healthy appearing, alert and well nourished GENERAL APPEARANCE: cooperative Chest: OTHER: anterior chest/upper abdominal incision appear clean/well healing Extremity: OTHER: L volar forearm incision appears clean; IV upper L arm present-removed without difficulty Neuro: COMMON NORMALS: moves all extremities, no focal motor deficits and no sensory deficits noted SENSORIUM/ORIENTATION: Yes alert Skin: NARRATIVE SKIN EXAM: see above Course Vital Signs: Vital signs: Vital Signs Temperature 98.3 F 02/13/25 15:06 Pulse Rate 109 H 02/13/25 15:24 Respiratory Rate 18 02/13/25 15:24 Blood Pressure 111/62 02/13/25 15:24 Pulse Oximetry 99 02/13/25 15:24 Oxygen Delivery Me thod Room Air 02/13/25 15:06 MDM - Skin/Abscess/Foreign Bdy Medicial Decision Making IV was removed without difficulty. Recommend follow-up with primary care later this week as scheduled. Recommend follow-up with her surgeon as scheduled. Medical Records I reviewed the patient's medical records. No radiology studies performed this visit Discharge Plan Discharge Patient Disposition: Home Clinical Impression: Intravenous catheter in place Condition: Stable Prescriptions: No Action metformin 500 mg tablet extended release 24 hr 500 mg PO BID amlodipine 5 mg Tablet 5 mg PO DAILY duloxetine [Cymbalta] 60 mg Capsule,Delayed Release(Dr/Ec) 60 mg PO BID Discharge Orders: Discharge ED (Routine); Ordered 02/13/25 Ordered By: Diane Potts Referrals: Demetra Merino DO [Primary Care Provider] - Print Language: Kuwaiti Coding Level of Care Code ED Labeler for [place]
[2025-02-13 15:24] VITALS: BP 111/62; PULSE 109; RESP 18; O2SAT 99
== END 2025-02-13 15:26 | disposition home or self-care (01) ==
PROVIDERS: Emergency Provider Physician Assistant; PCP Family Medicine
DX: Z45.2 Encounter for adjustment and management of vascular access device (principal)

== ENCOUNTER 2025-03-01 13:39 | Emergency (ER) | payer MEDICAID, SELFPAY ==
[2025-03-01 13:44] VITALS: BP 127/85; PULSE 115; TEMP 36.7; O2SAT 98; BMI 36.4
--- NOTE | 2025-03-01 13:49 | USCV_ITS ---
Marbella Lynch Age: 49 Gender: F : 1975 Exam Date: 03/01/2025 14:38 Ordering Phys: Martin Pascual Technologist: Exam [place] [facility] [place] Indication: lt leg pain and swelling post cabg PROCEDURES: Venous duplex imaging was performed in only the left lower extremity. The following venous structures were evaluated: common femoral vein, profunda vein, proximal portion of the greater saphenous vein, superficial femoral vein, and the popliteal vein. In addition, the posterior tibial and peroneal trunk were evaluated. FINDINGS: Evidence of acute partial superficial thrombophlebitis in the left greater saphenous vein with abnormal flow dynamics. The deep system is normal and free from thrombus. CONCLUSIONS No DVT left lower extremity. Superficial thrombophlebitis, mid to proximal GSV, sparing of the junction with CFV. Dr. Chanelle Resendez DO (Electronically Signed) Final Date: 01 March 2025 15:07 S
--- NOTE | 2025-03-01 14:53 | W.ED.EXTPRO ---
HPI - Extremity Problem General: Chief complaint: Extremity Problem,Nontraumatic Stated complaint: L leg pain Time Seen by Provider: 03/01/25 14:02 Source: patient Mode of arrival: ambulatory Limitations: no limitations History of Present Illness: Patient is a 49-year-old female who presents the emergency department complaining of left lower extremity pain, nontraumatic, today. Patient was admitted to the hospital here on 01/23 due to chest pain and elevated troponin, was subsequently transferred to [place] where she had open heart surgery (CABG) on 02/03. 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 Patient states that she has been taking Plavix and had sudden onset of left upper thigh pain beginning today. Noting severe 08/25 pain that has not been improved with her oxycodone. Also reports that there has been palpable swelling to her left inner thigh. This was the extremity where she had the cath performed, and states that while in the hospital her leg turned black. She is denying any chest pain, shortness of breath, or other symptoms at this time. Notably she is anxious. She does have a longstanding use of tobacco history and there is concern for peripheral vascular disease. She states that she has been chronically short of breath since discharge from the hospital, nothing new and currently at this time her O2 saturation is 98% on room air. Complaint: extremity pain Onset (ago): hour(s) Pain Consistency: constant Location: left and lower extremity Associated symptoms: Deny chest pain, fever(s) or rash Context: immobilization and recent surgery/procedure Related Data Home Medications ?Medication ?Instructions ?Recorded ?Confirmed amlodipine 5 mg tablet 5 mg PO DAILY 01/24/25 02/25/25 duloxetine 60 mg capsule,delayed 60 mg PO BID 01/24/25 02/25/25 release (Cymbalta) metformin 1,000 mg tablet 1,000 mg PO BID 02/25/25 02/25/25 oxycodone 5 mg tablet 5 mg PO Q6H 02/25/25 02/25/25 Allergies Allergy/AdvReac Type Severity Reaction Status Date / Time No Known Allergies Allergy Verified 03/01/25 13:47 Review of Systems General: Reports: 10 or more systems reviewed and unremarkable except in HPI and below Const: Denies: fever(s) or chills Card: Denies: chest pain Resp: Denies: dyspnea or productive cough GI: Denies: abdominal pain, nausea, vomiting or diarrhea : Denies: flank pain Musc: Reports: extremity pain (LLE); Denies: neck pain, back pain, extremity swelling, joint pain, joint swelling, joint redness, joint warmth, limited range of motion or muscle weakness Skin/Breast: Denies: rash Neuro: Denies: headache(s), numbness in extremities or weakness in extremities PFSH ED PFSH: Medical History Post-traumatic stress disorder, unspecified FHx: cholecystectomy Carpal tunnel syndrome delivery delivered Surgical History Postoperative state H/O: hysterectomy Hx of tonsillectomy H/O dilation and curettage Social History Quit status (tobacco/nicotine): has tried quititng Number of times tried to quit tobacco: 5 Second hand smoke exposure: No Current gender identity: Female Physical Exam Const: COMMON NORMALS: patient oriented x3, no limitations, alert and well nourished GENERAL APPEARANCE: cooperative and anxious HENMT: COMMON NORMALS: normocephalic and atraumatic HEAD & SCALP: normocephalic and atraumatic Neck/C-Spine: COMMON NORMALS: full ROM, supple and no meningeal signs Chest: OTHER: Well-healed poststernotomy scar Resp: COMMON NORMALS: normal respiratory effort, No use of accessory muscles and clear to auscultation bilaterally AUSCULTATION: clear to auscultation bilaterally Cardio: COMMON NORMALS: regular rate, regular rhythm, No gallops present (Cardio), No murmurs present (Cardio), No rub (Cardio) and Peripheral pulses 2+ throughout RATE: regular rate RHYTHM: regular rhythm PERIPHERAL PULSES: Peripheral pulses 2+ throughout Extremity: COMMON NORMALS: full ROM, capillary refill normal, no joint enlargement and no pedal edema NARRATIVE EXTREMITY EXAM: Distal pulses palpable left lower extremity. There is palpable indurated vein along the medial aspect of the left upper thigh. No bruising. Significant reproducible tenderness to palpation to the area of induration. No calf tenderness or swelling. No erythema. Neuro: COMMON NORMALS: patient oriented x3, moves all extremities, no focal motor deficits and no sensory deficits noted SENSORIUM/ORIENTATION: Yes alert MENINGEAL SIGNS: Yes no meningeal signs Skin: COMMON NORMALS: no rashes or lesions noted GENERAL SKIN EXAM: no rashes or lesions noted Course Vital Signs: Vital signs: Vital Signs Temperature 98.1 F 03/01/25 13:44 Pulse Rate 115 H 03/01/25 13:44 Respiratory Rate 18 03/01/25 15:04 Blood Pressure 127/85 03/01/25 13:44 Pulse Oximetry 96 03/01/25 15:04 Oxygen Delivery Me thod Room Air 03/01/25 13:44 MDM - Extremity (Nontraumatic) Medical Decision Making Patient presented for nontraumatic left upper extremity pain and swelling. Recently had CABG procedure at [place], was discharged on Plavix. On exam patient's peripheral pulses were present and there is no calf pain or swelling, however along the medial left thigh there was palpable induration of the vein, and ultrasound of this area showed large superficial thrombophlebitis. However was negative for DVT. With the location and prevalence of this superficial thrombophlebitis however, will give 1 dose of Eliquis and plan for patient to see regular doctor tomorrow for reevaluation and to come up with more chronic plan. There is no need to prescribe the Eliquis as there is no DVT, however I discussed thoroughly with her conservative measures for treating superficial thrombophlebitis and measures to take. She had noted to me she was feeling short of breath but this is not new, has been there since discharge and her SpO2 has been normal on room air. I have minimal concern of pulmonary embolism at this time, and I did tell the patient to return if her breathing worsens past her normal and if she starts to notice low O2 readings. She was very anxious I think this is contributing to her mild tachycardia here, ultimately will be discharged to continue her Plavix and strict follow-up tomorrow. She verbalized understanding to return precautions. Discussed case with Dr. Sands. All radiology interpretation(s) finalized by discharge Discharge Plan Discharge Patient Disposition: Home Clinical Impression: Superficial thrombophlebitis Condition: Stable Prescriptions: No Action amlodipine 5 mg Tablet 5 mg PO DAILY duloxetine [Cymbalta] 60 mg Capsule,Delayed Release(Dr/Ec) 60 mg PO BID metformin 1,000 mg tablet 1,000 mg PO BID oxycodone 5 mg tablet 5 mg PO Q6H Discharge Orders: Discharge ED (Routine); Ordered 03/01/25 Ordered By: Martin Pascual Referrals: Demetra Merino DO [Primary Care Provider] - Patient Instructions: Superficial Thrombophlebitis (ED) Activity Restrictions/Additional Instructions: Please see the attached patient instructions for further education. Compression stocking, elevation, heat and gentle massaging of the area. As we discussed, very important that you follow-up with your regular doctor tomorrow to discuss your ED visit. Your ultrasound today did not show any evidence of deep vein thrombosis, however you have been given your first dose of Eliquis and thus need to follow-up with regular doctor for further planning. Please return with any worsening shortness of breath, worsening of symptoms with your leg, or any other concerns that you have. Continue taking your Plavix at home. Print Language: Romanian Coding Level of Care Code ED Swimmer for [place]
[2025-03-01 15:04] VITALS: RESP 18; O2SAT 96
[2025-03-01] MEDS: apixaban 5 mg Tablet 10 MG PO (15:21)
== END 2025-03-01 15:37 | disposition home or self-care (01) ==
PROVIDERS: Emergency Provider Physician Assistant; PCP Family Medicine
DX: I80.02 Phlebitis and thrombophlebitis of superficial vessels of left lower extremity (principal); Z79.84 Long term (current) use of oral hypoglycemic drugs; Z72.0 Tobacco use; Z95.1 Presence of aortocoronary bypass graft
CPT/HCPCS: 93971; 99284; J9999

== ENCOUNTER → 2025-03-22 08:43 | Outpatient (BNVA) | payer MEDICAID, SELFPAY | PROVIDERS: PCP Family Medicine; Visit Provider Nurse Practitioner Family | DX: Z09 Encounter for follow-up examination after completed treatment for conditions other than malignant neoplasm (principal); F17.210 Nicotine dependence, cigarettes, uncomplicated; Z95.1 Presence of aortocoronary bypass graft; Z79.01 Long term (current) use of anticoagulants; Z79.82 Long term (current) use of aspirin; R79.89 Other specified abnormal findings of blood chemistry | CPT/HCPCS: 99214 ==

== ENCOUNTER → 2025-04-05 10:22 | Outpatient (BNVA) | payer MEDICAID, SELFPAY | PROVIDERS: PCP Family Medicine; Visit Provider Nurse Practitioner Family | DX: Z78.9 Other specified health status (principal); T14.8XXA Other injury of unspecified body region, initial encounter; Z79.01 Long term (current) use of anticoagulants; Z79.82 Long term (current) use of aspirin; F17.210 Nicotine dependence, cigarettes, uncomplicated; Z95.1 Presence of aortocoronary bypass graft | CPT/HCPCS: 99213 ==

== ENCOUNTER → 2025-05-17 13:23 | Outpatient (BNVA) | payer MEDICAID, SELFPAY | PROVIDERS: PCP Family Medicine; Visit Provider Internal Medicine Cardiovascular Disease | DX: I25.10 Atherosclerotic heart disease of native coronary artery without angina pectoris (principal); G47.30 Sleep apnea, unspecified; I74.9 Embolism and thrombosis of unspecified artery; G89.18 Other acute postprocedural pain; F17.200 Nicotine dependence, unspecified, uncomplicated | CPT/HCPCS: 99214 ==

== ENCOUNTER 2025-07-01 17:31 | Emergency (ER) | payer MEDICAID, SELFPAY ==
--- NOTE | 2025-07-01 17:36 | ECG_ITS ---
[facility] Test Date: 2025-07-01 Pat Name: Marbella Lynch Department: Room: Gender: Female Kindergartner: : 1975 Requested By: Giovanni Rodriguez Order Number: [id number] Salter MD: Rico iWn M.D. Measurements Intervals [place] Rate: 94 P: 47 IN: 128 QRS: 80 QRSD: 90 T: -1 QT: 345 QTc: 432 Interpretive Statements SINUS RHYTHM NONSPECIFIC ST & T-WAVE ABNORMALITY INTERPRETATION BASED ON A DEFAULT AGE OF 40 YEARS Compared to ECG 01/24/2025 02:19:39 Short IN interval no longer present Left posterior fascicular block no longer present T-wave abnormality still present Electronically Signed On 07-01-2025 21:58:40 CDT by Rico Win M.D. [id number]
--- OUTSIDE RECORDS SUMMARY | 2025-07-01 17:37 | XMS_ITS | Encounter Summary ---
Author Organization [facility] Address [address] [place] [address] Care Team Providers Care Tenter Frame Back Tender Name Role Phone MARQUEZ Gibbs Sr., Froilan Page Primary Care Pro vider Encounter Details Date Type Department Care Team (Latest Contact Info) Description 06/20/2002 Outpatient [facility] Medicine-[address] [place] [address] Robert Hanna MD NO ADDRESS ON FILE THREATEN ABORT-ANTEPART (Primary Dx) Social History Tobacco Use Types Packs/Day Years Used Date Smoking Tobacco: Never Assessed Comments Unknown Sex and Gender Information Value Date Recorded Sex Assigned at Not on file Legal Sex Female 4:45 AM MEDICAL COLLECTIONS Gender Identity Not on file Sexual Orientation Not on file documented as of this encounter Plan of Treatment Not on file documented as of this encounter Visit Diagnoses Diagnosis Threatened , antepartum- Primary documented in this encounter Care Teams Tenter Frame Back Tender Relationship Specialty Start Date End Date Froilan Gibbs Sr., FNP [address] [place] [address] PCP - General NURSE PRACTITIONER 03/13/11 07/16/13 documented as of this encounter
--- OUTSIDE RECORDS SUMMARY | 2025-07-01 17:37 | XMS_ITS | Encounter Summary ---
Author Organization [facility] Address [address] [place] [address] Care Team Providers Care Subsurface Augmentee Operator Name Role Phone MARQUEZ Gibbs Sr., Michael Dave Primary Care Pro vider Encounter Details Date Type Department Care Team (Late st Contact Info) Description 01/20/2005 Outpatient Historical [facility] Medicine-[id number] [place] [address] Social History Tobacco Use Types Packs/Day Years Used Date Smoking Tobacco: Never Assessed Comments Unknown Sex and Gender Information Value Date Recorded Sex Assigned at Not on file Legal Sex Female 4:45 AM AREA CLEANER Gender Identity Not on file Sexual Orientation Not on file documented as of this encounter Plan of Treatment Not on file documented as of this encounter Visit Diagnoses Not on filedocumented in this encounter Care Teams Subsurface Augmentee Operator Relationship Specialty Start Date End Date Froilan Gibbs Sr., FNP [address] [place] [address] PCP - General NURSE PRACTITIONER 03/13/11 07/16/13 documented as of this encounter
--- OUTSIDE RECORDS SUMMARY | 2025-07-01 17:37 | XMS_ITS | Encounter Summary ---
Author Organization [facility] Address [address] [place] [address] Care Team Providers Care Sweet Dough Mixer Name Role Phone MARQUEZ Gibbs Sr., Michael Dave Primary Care Pro vider Encounter Details Date Type Department Care Team (Latest Contact Info) Description 03/12/2004 Outpatient [facility] Care [facility] [address] [place] [id number] Steven Evans PA [address] [place] [address] NONINFLAM DIS VAGINA NEC (Primary Dx) Social History Tobacco Use Types Packs/Day Years Used Date Smoking Tobacco: Never Assessed Comments Unknown Sex and Gender Information Value Date Recorded Sex Assigned at Not on file Legal Sex Female 4:45 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
--- OUTSIDE RECORDS SUMMARY | 2025-07-01 17:37 | XMS_ITS | Encounter Summary ---
Author Organization [facility] Address [address] [place] [address] Care Team Providers Care Ticketer Name Role Phone MARQUEZ Gibbs Sr., Froilan Page Primary Care Pro vider Encounter Details Date Type Department Care Team (Late st Contact Info) Description 07/11/2004 Outpatient [facility] [place] [address] [address] Dillon Huitron MD NO ADDRESS ON FILE CERVICALGIA (Primary Dx) Social History Tobacco Use Types Packs/Day Years Used Date Smoking Tobacco: Never Assessed Comments Unknown Sex and Gender Information Value Date Recorded Sex Assigned at Not on file Legal Sex Female 4:45 AM FREELANCE DIRECTOR Gender Identity Not on file Sexual Orientation Not on file documented as of this encounter Plan of Treatment Not on file documented as of this encounter Visit Diagnoses Diagnosis Cervicalgia- Primary documented in this encounter Care Teams Ticketer Relationship Specialty Start Date End Date Froilan Gibbs Sr., FNP [address] [place] [address] PCP - General NURSE PRACTITIONER 03/13/11 07/16/13 documented as of this encounter
--- OUTSIDE RECORDS SUMMARY | 2025-07-01 17:37 | XMS_ITS | Encounter Summary ---
Author Organization [facility] Address [address] [place] [address] Care Team Providers Care Admissions Specialist Name Role Phone MARQUEZ Gibbs Sr., Michael Dave Primary Care Pro vider Encounter Details Date Type Department Care Team (Latest Contact Info) Description 09/13/[address] [facility] Imaging Services-Dani Chavez Marcus [address] [place] [address] Hany Sena, DO [address] [place] [address] JOINT PAIN-PELVIS (Primary Dx) Social History Tobacco Use Types Packs/Day Years Used Date Smoking Tobacco: Never Assessed Comments Unknown Sex and Gender Information Value Date Recorded Sex Assigned at Not on file Legal Sex Female 4:45 AM PRINT COLOR MATCHER Gender Identity Not on file Sexual Orientation Not on file documented as of this encounter Plan of Treatment Not on file documented as of this encounter Visit Diagnoses Diagnosis Pain in joint, pelvic region and thigh- Primary documented in this encounter Care Teams Admissions Specialist Relationship Specialty Start Date End Date Froilan Gibbs Sr., FNP [address] [place] [address] PCP - General NURSE PRACTITIONER 03/13/11 07/16/13 documented as of this encounter
--- OUTSIDE RECORDS SUMMARY | 2025-07-01 17:37 | XMS_ITS | Encounter Summary ---
Author Organization [facility] Address [address] [place]: Epic Prelude ADT [place] [address] Care Team Providers Care Soda Drier Feeder Name Role Phone MARQUEZ Gibbs Sr., Michael Dave Primary Care Pro vider Encounter Details Date Type Department Care Team (Late st Contact Info) Description 06/20/2002 Outpatient Historical Froilan Negron MD NO ADDRESS ON FILE Social History Tobacco Use Types Packs/Day Years Used Date Smoking Tobacco: Never Assessed Comments Unknown Sex and Gender Information Value Date Recorded Sex Assigned at Not on file Legal Sex Female 4:45 AM SKATING RINK MANAGER Gender Identity Not on file Sexual Orientation Not on file documented as of this encounter Plan of Treatment Not on file documented as of this encounter Visit Diagnoses Not on filedocumented in this encounter Care Teams Soda Drier Feeder Relationship Specialty Start Date End Date Froilan Gibbs Sr., FNP [address] [place] [address] PCP - General NURSE PRACTITIONER 03/13/11 07/16/13 documented as of this encounter
--- OUTSIDE RECORDS SUMMARY | 2025-07-01 17:37 | XMS_ITS | Encounter Summary ---
Author Organization [facility] Address [address] [place]: Epic Prelude ADT [place] [address] Care Team Providers Care Assembler Golf Wood Head Name Role Phone MARQUEZ Gibbs Sr., Michael Dave Primary Care Pro vider Encounter Details Date Type Department Care Team (Latest Contact Info) Description 06/14/2002 Emergency Que Donnelly MD NO ADDRESS ON FILE Social History Tobacco Use Types Packs/Day Years Used Date Smoking Tobacco: Never Assessed Comments Unknown Sex and Gender Information Value Date Recorded Sex Assigned at Not on file Legal Sex Female 4:45 AM ARTIST'S REPRESENTATIVE Gender Identity Not on file Sexual Orientation Not on file documented as of this encounter Plan of Treatment Not on file documented as of this encounter Visit Diagnoses Not on filedocumented in this encounter Care Teams Assembler Golf Wood Head Relationship Specialty Start Date End Date Froilan Gibbs Sr., FNP [address] [place] [address] PCP - General NURSE PRACTITIONER 03/13/11 07/16/13 documented as of this encounter
--- OUTSIDE RECORDS SUMMARY | 2025-07-01 17:37 | XMS_ITS | Encounter Summary ---
Author Organization [facility] Address [address] [place] [address] Care Team Providers Care Yarn Mercerizer Operator Helper Name Role Phone MARQUEZ Gibbs Sr., Michael Dave Primary Care Pro vider Encounter Details Date Type Department Care Team (Late st Contact Info) Description 09/01/2004 Emergency [facility] Emergency Department [address] [place] [id number] Frank Barth MD [address] [place] [address] THREATEN ABORT-ANTEPART (Primary Dx) Social History Tobacco Use Types Packs/Day Years Used Date Smoking Tobacco: Never Assessed Comments Unknown Sex and Gender Information Value Date Recorded Sex Assigned at Not on file Legal Sex Female 4:45 AM LIQUOR TESTER Gender Identity Not on file Sexual Orientation Not on file documented as of this encounter Plan of Treatment Not on file documented as of this encounter Visit Diagnoses Diagnosis Threatened , antepartum- Primary documented in this encounter Care Teams Yarn Mercerizer Operator Helper Relationship Specialty Start Date End Date Froilan Gibbs Sr., FNP [address] [place] [address] PCP - General NURSE PRACTITIONER 03/13/11 07/16/13 documented as of this encounter
--- OUTSIDE RECORDS SUMMARY | 2025-07-01 17:37 | XMS_ITS | Encounter Summary ---
Author Organization [facility] Address [address] [place] [address] Care Team Providers Care Assembler Plastic Boat Name Role Phone MARQUEZ Gibbs Sr., Michael Dave Primary Care Pro vider Encounter Details Date Type Department Care Team (Latest Contact Info) Description 08/22/2002 Outpatient Historical [facility] ANALYST [address] [place] [address] Froilan Negron MD NO ADDRESS ON FILE Gynecologic examination (Primary Dx) Social History Tobacco Use Types Packs/Day Years Used Date Smoking Tobacco: Never Assessed Comments Unknown Sex and Gender Information Value Date Recorded Sex Assigned at Not on file Legal Sex Female 4:45 AM JOB ORDER CLERK Gender Identity Not on file Sexual Orientation Not on file documented as of this encounter Plan of Treatment Not on file documented as of this encounter Visit Diagnoses Diagnosis Gynecologic examination- Primary Gynecological examination documented in this encounter Care Teams Assembler Plastic Boat Relationship Specialty Start Date End Date Froilan Gibbs Sr., FNP [address] [place] [address] PCP - General NURSE PRACTITIONER 03/13/11 07/16/13 documented as of this encounter
--- OUTSIDE RECORDS SUMMARY | 2025-07-01 17:37 | XMS_ITS | Encounter Summary ---
Author Organization [facility] Address [address] [place]: Epic Prelude ADT [place] [address] Care Team Providers Care Internetworking Technician Name Role Phone MARQUEZ Gibbs Sr., Michael Dave Primary Care Pro vider Encounter Details Date Type Department Care Team (Late st Contact Info) Description 06/23/2002 Outpatient Historical Froilan Negron MD NO ADDRESS ON FILE Social History Tobacco Use Types Packs/Day Years Used Date Smoking Tobacco: Never Assessed Comments Unknown Sex and Gender Information Value Date Recorded Sex Assigned at Not on file Legal Sex Female 4:45 AM PATTERN AND CHAIN MAKER Gender Identity Not on file Sexual Orientation Not on file documented as of this encounter Plan of Treatment Not on file documented as of this encounter Visit Diagnoses Not on filedocumented in this encounter Care Teams Internetworking Technician Relationship Specialty Start Date End Date Froilan Gibbs Sr., FNP [address] [place] [address] PCP - General NURSE PRACTITIONER 03/13/11 07/16/13 documented as of this encounter
--- OUTSIDE RECORDS SUMMARY | 2025-07-01 17:37 | XMS_ITS | Encounter Summary ---
Author Organization [facility] Address [address] [place] [address] Care Team Providers Care Dispatcher Electric Power Name Role Phone MARQUEZ Gibbs Sr., Froilan Page Primary Care Pro vider Encounter Details Date Type Department Care Team (Late st Contact Info) Description 08/15/2002 Outpatient Historical [facility] Social History Tobacco Use Types Packs/Day Years Used Date Smoking Tobacco: Never Assessed Comments Unknown Sex and Gender Information Value Date Recorded Sex Assigned at Not on file Legal Sex Female 4:45 AM FINANCIAL SERVICE REP Gender Identity Not on file Sexual Orientation Not on file documented as of this encounter Plan of Treatment Not on file documented as of this encounter Visit Diagnoses Not on filedocumented in this encounter Care Teams Dispatcher Electric Power Relationship Specialty Start Date End Date Froilan Gibbs Sr., FNP [address] [place] [address] PCP - General NURSE PRACTITIONER 03/13/11 07/16/13 documented as of this encounter
--- OUTSIDE RECORDS SUMMARY | 2025-07-01 17:37 | XMS_ITS | Encounter Summary ---
Author Organization [facility] Address [address] [place] [address] Care Team Providers Care Slipper Maker Name Role Phone MARQUEZ Gibbs Sr., Michael Dave Primary Care Pro vider Encounter Details Date Type Department Care Team (Latest Contact Info) Description 05/08/2004 Outpatient Historical [facility] Medicine-[address] [place] [address] [place] [address] Miranda Brown, DO [address] [place] [address] LUMBAGO (Primary Dx); TOBACCO USE DISORDER Social History Tobacco Use Types Packs/Day Years Used Date Smoking Tobacco: Never Assessed Comments Unknown Sex and Gender Information Value Date Recorded Sex Assigned at Not on file Legal Sex Female 4:45 AM AUTOMOTIVE TECHNICIAN INSTRUCTOR Gender Identity Not on file Sexual Orientation Not on file documented as of this encounter Plan of Treatment Not on file documented as of this encounter Visit Diagnoses Diagnosis Lumbago- Primary Tobacco use disorder documented in this encounter Care Teams Slipper Maker Relationship Specialty Start Date End Date Froilan Gibbs Sr., FNP [address] [place] [address] PCP - General NURSE PRACTITIONER 03/13/11 07/16/13 documented as of this encounter
--- OUTSIDE RECORDS SUMMARY | 2025-07-01 17:37 | XMS_ITS | Encounter Summary ---
Author Organization [facility] Address [address] [place] [address] Care Team Providers Care Provider Relations Manager Name Role Phone MARQUEZ Gibbs Sr., Michael Dave Primary Care Pro vider Encounter Details Date Type Department Care Team (Late st Contact Info) Description 12/03/1999 Outpatient Historical [facility] [address] [id number] Social History Tobacco Use Types Packs/Day Years Used Date Smoking Tobacco: Never Assessed Comments Unknown Sex and Gender Information Value Date Recorded Sex Assigned at Not on file Legal Sex Female 4:45 AM DIVISION COMMANDER Gender Identity Not on file Sexual Orientation Not on file documented as of this encounter Plan of Treatment Not on file documented as of this encounter Visit Diagnoses Not on filedocumented in this encounter Care Teams Provider Relations Manager Relationship Specialty Start Date End Date Froilan Gibbs Sr., FNP [address] [place] [address] PCP - General NURSE PRACTITIONER 03/13/11 07/16/13 documented as of this encounter
--- OUTSIDE RECORDS SUMMARY | 2025-07-01 17:37 | XMS_ITS | Encounter Summary ---
Author Organization [facility] Address [address] 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
--- OUTSIDE RECORDS SUMMARY | 2025-07-01 17:37 | XMS_ITS | Encounter Summary ---
Author Organization [facility] Address [address] 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
--- OUTSIDE RECORDS SUMMARY | 2025-07-01 17:37 | XMS_ITS | Encounter Summary ---
Author Organization [facility] Address [address] [place] [address] Care Team Providers Care Welcome Center Attendant Name Role Phone MARQUEZ Gibbs Sr., Michael Dave Primary Care Pro vider Encounter Details Date Type Department Care Team (Latest Contact Info) Description 06/29/2002 Outpatient Historical [facility] [address] [place] [address] Froilan Negron MD NO ADDRESS ON FILE SURGERY FOLLOWUP, UNSPEC (Primary Dx) Social History Tobacco Use Types Packs/Day Years Used Date Smoking Tobacco: Never Assessed Comments Unknown Sex and Gender Information Value Date Recorded Sex Assigned at Not on file Legal Sex Female 4:45 AM SIZING SPRAYER Gender Identity Not on file Sexual Orientation Not on file documented as of this encounter Plan of Treatment Not on file documented as of this encounter Visit Diagnoses Diagnosis Follow-up examination, following unspecified surgery- Primary documented in this encounter Care Teams Welcome Center Attendant Relationship Specialty Start Date End Date Froilan Gibbs Sr., FNP [address] [place] [address] PCP - General NURSE PRACTITIONER 03/13/11 07/16/13 documented as of this encounter
--- OUTSIDE RECORDS SUMMARY | 2025-07-01 17:37 | XMS_ITS | Encounter Summary ---
Author Organization [facility] Address [address] [place] [address] Care Team Providers Care Supervisor Money Room Name Role Phone MARQUEZ Gibbs Sr., Froilan Page Primary Care Pro vider Encounter Details Date Type Department Care Team (Latest Contact Info) Description 06/23/2002 Outpatient Historical [facility] CHEMICAL LABORATORY ASSISTANT 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
--- OUTSIDE RECORDS SUMMARY | 2025-07-01 17:37 | XMS_ITS | Encounter Summary ---
Author Organization [facility] Address [address] [place] [address] Care Team Providers Care Behavioral Health Director Name Role Phone MARQUEZ Gibbs Sr., Froilan Page Primary Care Pro vider Encounter Details Date Type Department Care Team (Late st Contact Info) Description 07/11/2004 Outpatient [facility] [address] [place] [phone] Dillon Huitron MD NO ADDRESS ON FILE LUMBAGO (Primary Dx); CERVICALGIA Social History Tobacco Use Types Packs/Day Years Used Date Smoking Tobacco: Never Assessed Comments Unknown Sex and Gender Information Value Date Recorded Sex Assigned at Not on file Legal Sex Female 4:45 AM NEUROSURGICAL NURSE Gender Identity Not on file Sexual Orientation Not on file documented as of this encounter Plan of Treatment Not on file documented as of this encounter Visit Diagnoses Diagnosis Lumbago- Primary Cervicalgia documented in this encounter Care Teams Behavioral Health Director Relationship Specialty Start Date End Date Froilan Gibbs Sr., FNP [address] [place] [address] PCP - General NURSE PRACTITIONER 03/13/11 07/16/13 documented as of this encounter
--- OUTSIDE RECORDS SUMMARY | 2025-07-01 17:37 | XMS_ITS | Encounter Summary ---
Author Organization [facility] Address [address] [place] [address] Care Team Providers Care Programmer Developer Name Role Phone MARQUEZ Gibbs Sr., Michael Dave Primary Care Pro vider Encounter Details Date Type Department Care Team (Late st Contact Info) Description 02/23/2003 Outpatient Historical [facility] [place] [address] 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
--- OUTSIDE RECORDS SUMMARY | 2025-07-01 17:37 | XMS_ITS | Clinical Summary ---
Author Organization [facility] Address [address] Metzgern: [place] [address] Care Team Providers Care Pile Driving Technician Name Role Phone Demetra Merino DO Primary Care Provider [phone] Allergies No known active allergies Medications lidocaine (LIDODERM) 5 % Adhesive Patch, Medicated USE 1 PATCH EXTERNALLY TO AFFECTED AREA EVERY 24 HOURS (12 HOURS ON, 12 HOURS OFF) 30 Patch 2 4 Active CPAP / BIPAP supplies Resmed autoCPAP with EPAPmin=4cwp and EPAPmax=20cwp, Length of need: 99 months Mask Type: per patient comfort with headgear every 6 months, mask only every 3 months,as needed cushions per month. Tubing: heated 1 every 3 months, water chamber 1 every 6 months, chin strap 1 every 6 months, filters disposable 2 per month, filters reusable 1 per 6 months.Efficac y data download and mask fitting. Please link efficiency data download to Dr. David account. Diagnosis: G47.33 . 1 Each 4 Active amLODIPine (NORVASC) 5 mg tablet Take 1 Tablet (5 mg) by mouth daily. 90 Tablet 1 5 Active DULoxetine (CYMBALTA) 60 mg Capsule, Delayed Release(E.C.) Take 1 Capsule (60 mg) by mouth 2 times daily. 180 Capsule 1 5 Active clonazePAM (KlonoPIN) 0.5 mg TabletIndications: Generalized anxiety disorder Take 1 tablet by mouth twice daily as needed. 60 Tablet 1 5 Active acetaminophen (TYLENOL) 325 mg tablet Take 325 mg by mouth every 6 hours as needed for Temperature. Take 2 tablets by mouth every 6 hours as needed for fever Active calcium as CARBONATE (OS-NIKITA) 1,250 mg (500 mg elemental) tablet Take 2 Tablets by mouth daily. Take two tablets by mouth daily Active docusate sodium (COLACE) 100 mg capsule Take 100 mg by mouth 2 times daily. Take 1 tablet by mouth two times daily Active polyethylene glycol (MIRALAX) 17 gram Powder in Packet Take 17 Grams by mouth daily. 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 Take one tablet by mouth daily 90 Tablet 5 Active furosemide (LASIX) 40 mg tabletIndications: Leg swelling Take 1 Tablet (40 mg) by mouth daily. 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 Take one tablet by mouth daily 90 Tablet 5 Active methocarbamoL (ROBAXIN) 500 mg tabletIndications: Chronic midline low back pain with bilateral sciatica Take 1 Tablet (500 mg) by mouth 3 times daily. Take 1 tablet by mouth 3 times daily 270 Tablet 3 5 Active potassium CHLORIDE (K-DUR,KLOR-CON M20) 20 mEq Extended Release tabletIndications: Leg swelling Take 1 Tablet (20 mEq) by mouth daily. 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 90 Tablet 3 5 Active ferrous sulfate 325 mg (65 mg iron) tabletIndications: Other iron deficiency anemia Take 1 Tablet (325 mg) by mouth daily. 90 Tablet 1 5 Active mupirocin calcium (BACTROBAN) 2 % CreamIndications:S uperficial postoperative wound infection Apply to affected area 2 times daily. 30 Gram 2 5 Active oxyCODONE (ROXICODONE) 5 mg tabletIndications: Pain following surgery or procedure Take 1 Tablet (5 mg) by mouth every 6 hours as needed for Pain. 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 02/14/2025 Recurrent major depressive disorder, in full rem ission 12/23/2024 Obstructive sleep apnea 12/23/2024 Severe obesity (BMI 35.0-39.9) with comorbidity 12/23/2024 Generalized anxiety disorder 02/14/2023 Type 2 diabetes mellitus wit hout complication, without long-term current use of insulin 02/14/2023 Chronic midline low back pain with bilateral sci atica 02/14/2023 Cigarette dependence 12/22/2021 Carpal tunnel syndrome 12/12/2011 Arthritis 10/29/2011 Overview (03/14/2021): Dx by Dr Schmidt Fibromyalgia 10/29/2011 Overview (03/14/2021): Dx by Dr Schmidt in 2008 Essential hypertension 10/29/2011 Vitamin D deficiency 10/29/2011 Gastroesophageal reflux disease without esophagi tis 09/04/2011 Resolved Problems Problem Noted Date Diagnosed Date Resolved Date Morbid obesity with body mas s index (BMI) of 40.0 or higher 02/14/2023 12/23/2024 Moderate episode of recurren t major depressive disorder 10/29/2011 12/23/2024 Nausea with vomiting 03/19/2011 022 Encounters Date Type Department Care Team Description 05/31/2025 External Device Data STL ABSTRACTION Provider, Abstract 05/31/2025 External Device Data STL ABSTRACTION Provider, Abstract 05/31/2025 External Device Data STL ABSTRACTION Provider, Abstract 05/31/2025 External Device Data STL ABSTRACTION Provider, Abstract 05/30/2025 External Device Data STL ABSTRACTION Provider, Abstract 05/09/2025 External Device Data STL ABSTRACTION Provider, Abstract 04/06/2025 [facility] [address] [place] [address] Gracie Kulkarni, MARQUEZ 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 ([facility]) 04/06/2025 [facility] [address] [place] [address] Demetra Merino, DO Pain following surgery or procedure 04/06/2025 [facility] [address] [place] [address] Demetra Merino, DO 04/05/2025 External Device Data STL ABSTRACTION Provider, Abstract 04/04/2025 External Device Data STL ABSTRACTION Provider, Abstract from Last 3 Months Family History Medical History Relation Name Comments Depression Father Dad Hypertension Father Dad Skin Cancer Father Dad Diabetes Maternal Grandmother Gma Diabetes Mother Mommom Hypertension Mother Mommom Breast Cancer Neg Hx Colon Cancer Neg Hx Relation Name Status Comments Father Dad Maternal Grandmother Gma Mother Mommom Social History Tobacco Use Types Packs/Day Years Used Date Smoking Tobacco: Every Day Cigarettes Smokeless Tobacco: Never Tobacco Cessation:Ready to Q uit: Not Asked; Counseling Given: Yes Alcohol Use Standard Drinks/Week Comments Yes 8.3 (1 standard drink = 0.6 oz p ure alcohol) Comments No Sex and Gender Information Value Date Recorded Sex Assigned at Not on file Legal Sex Female 12:29 AM GENERAL OPERATIONS AGENT Gender Identity Not on file Sexual Orientation Not on file Last Filed Vital Signs Vital Sign Reading Time Taken Comments Blood Pressure 124/76 03/17/2025 11:06 AM CDT Pulse 104 03/17/2025 11:06 AM CDT Temperature 36.7 C (98 F) 03/17/2025 11:06 AM CDT Respiratory Rate 17 03/17/2025 11:06 AM CDT Oxygen Saturation 98% 03/17/2025 11:06 AM CDT Inhaled Oxygen Concentration - - Weight 96.4 kg (212 lb 9.6 oz) 03/17/2025 11:06 AM CDT Height 165.1 cm (5' 5 ) 03/17/2025 11:06 AM CDT Body Mass Index 35.38 03/17/2025 11:06 AM CDT Plan of Treatment Health Maintenance Due Date Last Done Comments DIABETES ANNUAL FOOT EXAM 1994 DIABETES ANNUAL RETINAL EXAM 1994 DIABETES MICROALBUMIN ANNUAL SCREEN 1994 DTAP/TDAP/TD VACCINES (1 - Tdap) 1995 HEPATITIS B VACCINES (1 of 3 - 19+ 3-dose series) 1995 Preventative Visit-Managed Medicaid 1995 HPV/Cotest (21-29) 1997 CERVICAL CANCER SCREENING 2006 HPV/Cotest (30-65) 2006 PAP SMEAR 2006 BREAST CANCER SCREENING 04/02/2021 04/02/2020 COLORECTAL SCREENING 2021 FIT/FOBT Q 1 year 2021 Flex Sig/CT Colonography Q 5 years 2021 INFLUENZA VACCINE (#1) 2025 03/02/2025 DIABETES HBA1C Q 6 MONTHS 07/30/20252024, 01/26/2025, 12/21/2024, Additional history exists LDL CHOLESTEROL ANNUAL 12/21/2025 , 01/21/2024, 10/15/2023, Additional history exists DIABETES: A1C (Auto Order) 01/27/202601/27, 01/26/2025, 12/21/2024, Additional history exists Colorectal Cancer Screening 03/01/2027 FIT-DNA Q 3 years 03/01/2027 03/01/2024 Procedures Procedure Name Priority Date/Time Associated Diagnosis Comments LIPID PANEL Routine 12/21/2024 11:47 AM GENERAL OPERATIONS AGENT Type 2 diabetes mellitus without complication, without long-term current use of insulin (CMS/HCC) HEMOGLOBIN A1C Routine 12/21/2024 11:47 AM GENERAL OPERATIONS AGENT Type 2 diabetes mellitus without complication, without long-term current use of insulin (CMS/HCC) COLON CANCER SCREEN, STOOL DNA Routine 03/01/2024 8:46 PM CDT Encounter for colorectal cancer screening MAMMO SCREEN BILAT W OR WO CAD Routine 04/02/2020 from Last 3 Months or Most Recently Relevant to Health Maintenance Results * (ABNORMAL) HEMOGLOBIN A1C (12/21/2024 11:47 AM GENERAL OPERATIONS AGENT) HEMOGLOBIN A1C 7.3(H) <5.7 % of total Hgb [facility] Comment: For someone without known diabetes, a hemoglobin A1c value of 6.5% or greater indicates that they may have diabetes and this should be confirmed with a follow-up test. For someone with known diabetes, a value <7% indicates that their diabetes is well controlled and a value greater than or equal to 7% indicates suboptimal control. A1c targets should be individualized based on duration of diabetes, age, comorbid conditions, and other considerations. Currently, no consensus exists regarding use of hemoglobin A1c for diagnosis of diabetes for children. ESTIMATED AVERAGE GLUCOSE (MG/DL) 163 mg/dL [facility] ESTIMATED AVERAGE GLUCOSE (MMOL/L) 9.0 mmol/L [facility] Comment: FASTING:UNKNOWN FASTING: UNKNOWN Test Performed at: [facility] [address] [place] [address] Anthony Arreola MD Blood 12/21/2024 11:4 7 AM GENERAL OPERATIONS AGENT 12/21/2024 11:48 AM GENERAL OPERATIONS AGENT us Demetra Merino DO CHEMISTRY ORDERABLES Final Result Performing Organization Address City/[facility]/ZIP Co de Phone Number [facility] [phone] [facility] [address] [address] * (ABNORMAL) LIPID PANEL (12/21/2024 11:47 AM GENERAL OPERATIONS AGENT) CHOLESTEROL 146 <200 mg/dL [facility] HDL 57 > OR = 50 mg/dL [facility] TRIGLYCERIDE 174(H) <150 mg/dL [facility] LDL CALCULATED 64 mg/dL (calc) [facility] Comment: Reference range: <100 Desirable range <100 mg/dL for primary prevention; <70 mg/dL for patients with CHD or diabetic patients with > or = 2 CHD risk factors. LDL-C is now calculated using the Dante-Janessa calculation, which is a validated novel method providing better accuracy than the Friedewald equation in the estimation of LDL-C. Dante SS et al. JORGE ALBERTO. 2013;310(19): 7101-3256 (http://education.[employer]/faq/ZDE703) CHOL/HDL RATIO 2.6 <5.0 (calc) [facility] NON-HDL CHOLESTEROL 89 <130 mg/dL (calc) [facility] Comment: For patients with diabetes plus 1 major ASCVD risk factor, treating to a non-HDL-C goal of <100 mg/dL (LDL-C of <70 mg/dL) is considered a therapeutic option. Test Performed at: [facility] [address] [facility] [place] [address] Anthony Arreola MD Blood 12/21/2024 11:4 7 AM GENERAL OPERATIONS AGENT 12/21/2024 11:48 AM GENERAL OPERATIONS AGENT us Demetra Merino DO CHEMISTRY ORDERABLES Final Result Performing Organization Address City/[facility]/ZIP Co de Phone Number [facility] [phone] [facility] [address] [address] * COLON CANCER SCREEN, STOOL DNA (03/01/2024 8:46 PM CDT) COLOGUARD RESULT Negative Negative [facility] Comment: NEGATIVE TEST RESULT. A negative Cologuard result indicates a low likelihood that a colorectal cancer (CRC) or advanced adenoma (adenomatous polyps with more advanced pre-malignant features) is present. The chance that a person with a negative Cologuard test has a colorectal cancer is less than 1 in 1500 (negative predictive value >99.9%) or has an advanced adenoma is less than 5.3% (negative predictive value 94.7%). These data are based on a prospective cross-sectional study of 10,000 individuals at average risk for colorectal cancer who were screened with both Cologuard and colonoscopy. (Monica Horne et al, N Engl J Med 2014;370(14):6873-4623) The normal value (reference range) for this assay is negative. COLOGUARD RE-SCREENING RECOMMENDATION: Periodic colorectal cancer screening is an important part of preventive healthcare for asymptomatic individuals at average risk for colorectal cancer. Following a negative Cologuard result, the [place] Cancer Society and U.S. Multi-Society Task Force screening guidelines recommend a Cologuard re-screening interval of 3 years. References: [place] [employer] Guideline for Colorectal Cancer Screening: https://www.cancer.org/cancer/ezoil-zdvbir-ajbwwd/enwvvhdgz-dcyemxvzk-nphvnik/ac s-rec ommendations.html.; Des TORRES, Stephen DUTTON, Qian MeléndezK, Colorectal Cancer Screening: Recommendations for Physicians and Patients from the U.S. Multi-Society Task Force on Colorectal Cancer Screening , Am J Gastroenterology 2017; 112:2995-8358. TEST DESCRIPTION: Composite algorithmic analysis of stool DNA-biomarkers with hemoglobin immunoassay. Quantitative values of individual biomarkers are not reportable and are not associated with individual biomarker result reference ranges. Cologuard is intended for colorectal cancer screening of adults of either sex, 45 years or older, who are at average-risk for colorectal cancer (CRC). Cologuard has been approved for use by the U.S. FDA. The performance of Cologuard was established in a cross sectional study of average-risk adults aged 50-84. Cologuard performance in patients ages 45 to 49 years was estimated by sub-group analysis of near-age groups. Colonoscopies performed for a positive result may find as the most clinically significant lesion: colorectal cancer [4.0%], advanced adenoma (including sessile serrated polyps greater than or equal to 1cm diameter) [20%] or non- advanced adenoma [31%]; or no colorectal neoplasia [45%]. These estimates are derived from a prospective cross-sectional screening study of 10,000 individuals at average risk for colorectal cancer who were screened with both Cologuard and colonoscopy. (Monica Roth. et al, N Engl J Med 2014;370(14):9524-1281.) Cologuard may produce a false negative or false positive result (no colorectal cancer or precancerous polyp present at colonoscopy follow up). A negative Cologuard test result does not guarantee the absence of CRC or advanced adenoma (pre-cancer). The current Cologuard screening interval is every 3 years. ([place] [employer] Society and U.S. Multi-Society Task Force). Cologuard performance data in a 10,000 patient pivotal study using colonoscopy as the reference method can be accessed at the following location: www.[employer]/results. Additional description of the Cologuard test process, warnings and precautions can be found at www.[facility].com. Stool STOOL SPECIMEN / Unknown 03/01/2024 8:46 PM CDT 03/03/2024 3:44 PM CDT us Demetra Merino DO BODY FLUIDS AND STOOLS Maria [facility] CLIA # [id number] [address] , [address] [place] [address] * MAMMO SCREEN BILAT W OR WO CAD (04/02/2020) Anatomical Region Laterality Modality Breast Bilateral Mammography us Abstract Provider MAMMO ORDERABLES Final Result from Last 3 Months or Most Recently Relevant to Health Maintenance Insurance MEDICAID [place] Care Teams Pile Driving Technician Relationship Specialty Start Date End Date Demetra Merino DO [address] [place] [address] PCP - General Family Practice 03/05/23
--- OUTSIDE RECORDS SUMMARY | 2025-07-01 17:37 | XMS_ITS | Encounter Summary ---
Author Organization [facility] Address [address] [place] [address] Care Team Providers Care Freelance Graphic Designer Name Role Phone MARQUEZ Gibbs Sr., Froilan Page Primary Care Pro vider Encounter Details Date Type Department Care Team (Late st Contact Info) Description 05/15/2004 Outpatient Historical [facility] [place] [address] [address] Miranda Brown, DO [address] [place] [address] Social History Tobacco Use Types Packs/Day Years Used Date Smoking Tobacco: Never Assessed Comments Unknown Sex and Gender Information Value Date Recorded Sex Assigned at Not on file Legal Sex Female 4:45 AM SHIPPING LEAD PERSON Gender Identity Not on file Sexual Orientation Not on file documented as of this encounter Plan of Treatment Not on file documented as of this encounter Visit Diagnoses Not on filedocumented in this encounter Care Teams Freelance Graphic Designer Relationship Specialty Start Date End Date Froilan Gibbs Sr., FNP [address] [place] [address] PCP - General NURSE PRACTITIONER 03/13/11 07/16/13 documented as of this encounter
--- OUTSIDE RECORDS SUMMARY | 2025-07-01 17:37 | XMS_ITS | Encounter Summary ---
Author Organization [facility] Address [address] [place] [address] Care Team Providers Care Rock Wool Insulator Name Role Phone MARQUEZ Gibbs Sr., Michael Dave Primary Care Pro vider Encounter Details Date Type Department Care Team (Latest Contact Info) Description 05/23/2004 Outpatient [facility] Care [facility] [address] [place] [address] Steven Evans PA [address] [place] [address] STREP SORE THROAT (Primary Dx); ALLERGIC RHINITIS NOS Social History Tobacco Use Types Packs/Day Years Used Date Smoking Tobacco: Never Assessed Comments Unknown Sex and Gender Information Value Date Recorded Sex Assigned at Not on file 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
--- OUTSIDE RECORDS SUMMARY | 2025-07-01 17:37 | XMS_ITS | Clinical Summary ---
Author Organization [facility] Address [address] [place] [address] Care Team Providers Care Security Public Safety Officer Name Role Phone Unavailable Primary Care Provider Unavailabl e Allergies No known active allergies Medications cyclobenzaprine (FLEXERIL) 10 mg tablet Take 10 mg by mouth 3 times daily as needed for Spasm. Active amLODIPine (NORVASC) 10 mg tablet Take 10 mg by mouth daily. Active metFORMIN (GLUCOPHAGE) 500 mg tablet Take 500 mg by mouth 2 times daily with meals. Active lisinopriL (PRINIVIL) 10 mg tablet Take 10 mg by mouth daily. Active Active Problems Problem Noted Date Diagnosed Date Carpal tunnel syndrome 12/12/2011 Fibromyalgia 10/29/2011 Overview (10/29/2011): Dx by Dr Schmidt in 2008 Arthritis 10/29/2011 Overview (10/29/2011): Dx by Dr Schmidt Depression 10/29/2011 HTN (hypertension) 10/29/2011 Vitamin D deficiency 10/29/2011 GERD (gastroesophageal reflux disease) 1 RUQ pain 03/19/2011 Nausea with vomiting 03/19/2011 Family History Medical History Relation Name Comments Hypertension Father Diabetes Maternal Grandmother Diabetes Mother Hypertension Mother Breast Cancer Neg Hx Colon Cancer Neg Hx Relation Name Status Comments Father Maternal Grandmother Mother Social History Tobacco Use Types Packs/Day Years Used Date Smoking Tobacco: Every Day Cigarettes 0.5 10 Smokeless Tobacco: Never Tobacco Cessation:Ready to Q uit: Yes; Counseling Given: Yes Alcohol Use Standard Drinks/Week Comments Yes 8.3 (1 standard drink = 0.6 oz p ure alcohol) year Comments No Sex and Gender Information Value Date Recorded Sex Assigned at Not on file Legal Sex Female 4:45 AM 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 MANAGER Gender Identity Not on file Sexual Orientation Not on file Occupation Industry Job Start Date Job End Date Not on file Not on file Not on file Not on file Last Filed Vital Signs Vital Sign Reading Time Taken Comments Blood Pressure 148/65 08/07/2020 10:40 AM CDT Pulse 117 08/07/2020 10:40 AM CDT Temperature 36.6 C (97.8 F) 07/17/2013 10:16 PM CDT Respiratory Rate 20 07/17/2013 11:1 6 PM CDT Oxygen Saturation 99% 08/07/2020 10: 40 AM CDT Inhaled Oxygen Concentration - - Weight 121.9 kg (268 lb 12.8 oz) 2019 10:40 AM CDT Height 162.6 cm (5' 4 ) 08/07/2020 10:4 0 AM CDT Body Mass Index 46.14 08/07/2020 10:40 AM CDT Plan of Treatment Health Maintenance Due Date Last Done Comments DIABETES ANNUAL FOOT EXAM 1994 DIABETES ANNUAL RETINAL EXAM 1994 DIABETES MICROALBUMIN ANNUAL SCREEN 1994 LDL CHOLESTEROL ANNUAL 1994 DTAP/TDAP/TD VACCINES (1 - Tdap) 1995 HEPATITIS B VACCINES (1 of 3 - 19+ 3-dose series) 1995 HPV/Cotest (21-29) 1997 CERVICAL CANCER SCREENING 2006 HPV/Cotest (30-65) 2006 PAP SMEAR 2006 08/22/2002 BREAST CANCER SCREENING 2016 COLORECTAL SCREENING 2021 Colorectal Cancer Screening 2021 FIT-DNA Q 3 years 2021 FIT/FOBT Q 1 year 2021 Flex Sig/CT Colonography Q 5 years 2021 INFLUENZA VACCINE (#1) 2025 DIABETES HBA1C Q 6 MONTHS 07/30/20252024, 01/26/2025, 10/29/2011 Procedures Procedure Name Priority Date/Time Associated Diagnosis Comments HEMOGLOBIN A1C Routine 10/29/2011 11:37 AM RECREATION 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 MANAGER Polydipsia from Last 3 Months or Most Recently Relevant to Health Maintenance Results * HEMOGLOBIN A1C (10/29/2011 11:37 AM RECREATION 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 MANAGER) HEMOGLOBIN A1C 5.6 4.0 - 6.0 % [facility] Blood specimen (specimen) 10/29/2011 11:37 AM RECREATION 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 MANAGER 10/29/2011 11:38 AM RECREATION 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 MANAGER us Qiana Samayoa MD CHEMISTRY ORDERABLES Final Result [facility] CLIA# [id number] [address] [place] [address] from Last 3 Months or Most Recently Relevant to Health Maintenance Insurance [facility] Advance Directives For more information, please contact: [phone] * Full Code (Latest Code Status on File) Date Activated Date Inactivated Comments 07/17/2011 10:25 AM 07/17/2011 1:11 PM * Full Code Date Activated Date Inactivated Comments 07/17/2011 10:10 AM 07/17/2011 10:25 AM * Full Code Date Activated Date Inactivated Comments 07/17/2011 9:27 AM 07/17/2011 10:10 AM
--- OUTSIDE RECORDS SUMMARY | 2025-07-01 17:37 | XMS_ITS | Encounter Summary ---
Author Organization [facility] Address [address] 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
--- OUTSIDE RECORDS SUMMARY | 2025-07-01 17:37 | XMS_ITS | Encounter Summary ---
Author Organization [facility] Address [address] [place] [address] Care Team Providers Care Electron Microscopist Name Role Phone MARQUEZ Gibbs Sr., Michael Dave Primary Care Pro vider Encounter Details Date Type Department Care Team (Latest Contact Info) Description 06/12/2004 Outpatient Historical [facility] [place] [address] [place] [address] Miranda Brown, DO [address] [place] [address] LUMBAGO (Primary Dx) Social History Tobacco Use Types Packs/Day Years Used Date Smoking Tobacco: Never Assessed Comments Unknown Sex and Gender Information Value Date Recorded Sex Assigned at Not on file 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
--- OUTSIDE RECORDS SUMMARY | 2025-07-01 17:37 | XMS_ITS | Encounter Summary ---
Author Organization [facility] Address [address] [place] [address] Care Team Providers Care Packing Line Operator Name Role Phone MARQUEZ Gibbs Sr., Michael Dave Primary Care Pro vider Encounter Details Date Type Department Care Team (Latest Contact Info) Description 07/29/2002 Outpatient Historical [facility]- [place] [address] [place] [phone] Hany Sena, DO [address] [place] [phone] NONINFLAM DIS VAGINA NOS (Primary Dx) Social History Tobacco Use Types Packs/Day Years Used Date Smoking Tobacco: Never Assessed Comments Unknown Sex and Gender Information Value Date Recorded Sex Assigned at Not on file Legal Sex Female 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
--- OUTSIDE RECORDS SUMMARY | 2025-07-01 17:37 | XMS_ITS | Encounter Summary ---
Author Organization [facility] Address [address] 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
--- OUTSIDE RECORDS SUMMARY | 2025-07-01 17:37 | XMS_ITS | Encounter Summary ---
Author Organization [facility] Address [address] [place] [address] Care Team Providers Care Supervisor Porcelain Department Name Role Phone MARQUEZ Gibbs Sr., Michael Dave Primary Care Pro vider Encounter Details Date Type Department Care Team (Latest Contact Info) Description 09/13/2002 Outpatient Historical [facility] Urgent Care- [place] [address] [place] [phone] Hany Sena, DO [address] [phone] SPRAIN HIP & THIGH NOS (Primary Dx) Social History Tobacco Use Types Packs/Day Years Used Date Smoking Tobacco: Never Assessed Comments Unknown Sex and Gender Information Value Date Recorded Sex Assigned at Not on file Legal Sex Female 4:45 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
--- OUTSIDE RECORDS SUMMARY | 2025-07-01 17:37 | XMS_ITS | Encounter Summary ---
Author Organization [facility] Address [address] [place] [address] Care Team Providers Care Warehouse And Receiving Supervisor Name Role Phone MARQUEZ Gibbs Sr., Michael Dave Primary Care Pro vider Encounter Details Date Type Department Care Team (Latest Contact Info) Description 06/17/2002 [facility] [address] [place] [address] Froilan Negron MD NO ADDRESS ON FILE MISSED (Primary Dx) Social History Tobacco Use Types Packs/Day Years Used Date Smoking Tobacco: Never Assessed Comments Unknown Sex and Gender Information Value Date Recorded Sex Assigned at Not on file Legal Sex Female 4:45 AM DIRECTOR OF EVENTS Gender Identity Not on file Sexual Orientation Not on file documented as of this encounter Plan of Treatment Not on file documented as of this encounter Visit Diagnoses Diagnosis Missed - Primary documented in this encounter Care Teams Warehouse And Receiving Supervisor Relationship Specialty Start Date End Date Froilan Gibbs Sr., FNP [address] [place] [address] PCP - General NURSE PRACTITIONER 03/13/11 07/16/13 documented as of this encounter
--- OUTSIDE RECORDS SUMMARY | 2025-07-01 17:37 | XMS_ITS | Encounter Summary ---
Author Organization [facility] Address [address] [place] [address] Care Team Providers Care Assembler Fitter Name Role Phone MARQUEZ Gibbs Sr., Michael Dave Primary Care Pro vider Encounter Details Date Type Department Care Team (Latest Contact Info) Description 06/20/2002 Outpatient Historical [facility] PRODUCT DISTRIBUTION SPECIALIST 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
--- OUTSIDE RECORDS SUMMARY | 2025-07-01 17:37 | XMS_ITS | Encounter Summary ---
Author Organization [facility] Address [address] [place] [address] Care Team Providers Care Wind Development Director Name Role Phone MARQUEZ Gibbs Sr., Froilan Page Primary Care Pro vider Encounter Details Date Type Department Care Team (Late st Contact Info) Description 01/12/2006 Outpatient [facility] [place] [address] [place] [phone] Mitul Bucio MD [address] [place] [phone] NONINFEC GASTROENTERIT NEC (Primary Dx) Social History Tobacco Use Types Packs/Day Years Used Date Smoking Tobacco: Never Assessed Comments Unknown Sex and Gender Information Value Date Recorded Sex Assigned at Not on file Legal Sex Female 4:45 AM MOVER HELPER Gender Identity Not on file Sexual Orientation Not on file documented as of this encounter Plan of Treatment Not on file documented as of this encounter Visit Diagnoses Diagnosis Other and unspecified noninfectious gastroenteritis and colitis(558.9)- Primary Other and unspecified noninfectious gastroenteritis and colitis documented in this encounter Care Teams Wind Development Director Relationship Specialty Start Date End Date Froilan Gibbs Sr., FNP [address] [place] [address] PCP - General NURSE PRACTITIONER 03/13/11 07/16/13 documented as of this encounter
[2025-07-01 17:38] VITALS: BP 168/96; PULSE 91; RESP 25; TEMP 36.7; O2SAT 99; BMI 35.4
== END 2025-07-01 18:49 | disposition left against medical advice (07) ==
LOC: ER 17:35
PROVIDERS: Emergency Provider Family Medicine; PCP Family Medicine
DX: Z53.21 Procedure and treatment not carried out due to patient leaving prior to being seen by health care provider (principal); R94.31 Abnormal electrocardiogram [ECG] [EKG]
CPT/HCPCS: 93005

== ENCOUNTER 2025-07-31 16:42 | Outpatient (CLI) | payer MEDICAID, SELFPAY ==
--- NOTE | 2025-07-31 17:00 | USCV_ITS ---
Marbella Lynch Age: 49 Gender: F : 1975 Exam Date: 07/31/2025 17:05 Ordering Phys: Gracie Kulkarni Technologist: CASSI Exam Location: [facility] Indication: left leg swelling, pain HISTORY: Lower extremity swelling-LEFT PROCEDURES: Venous duplex imaging was performed in only the left lower extremity. The following venous structures were evaluated: common femoral vein, profunda vein, proximal portion of the greater saphenous vein, superficial femoral vein, and the popliteal vein. In addition, the posterior tibial and peroneal trunk were evaluated. FINDINGS: Normal 2-D Doppler and augmentation and compressibility throughout the lower extremity venous structures. Additional imaging through the proximal calf veins also reveals no thrombus. Limited evaluation of the greater saphenous vein is patent with no thrombus. CONCLUSIONS No DVT left lower extremity. Dr. Chanelle Resendez DO (Electronically Signed) Final Date: 01 August 2025 08:44 S
== END 2025-07-31 16:43 | disposition home or self-care (01) ==
LOC: RAD 16:44
PROVIDERS: PCP Family Medicine; Visit Provider Nurse Practitioner Family
DX: M79.605 Pain in left leg (principal); M79.89 Other specified soft tissue disorders
CPT/HCPCS: 93971

== ENCOUNTER → 2025-10-11 09:02 | Outpatient (BNVA) | payer MEDICAID, SELFPAY | PROVIDERS: PCP Family Medicine; Visit Provider Nurse Practitioner Family | DX: I25.10 Atherosclerotic heart disease of native coronary artery without angina pectoris (principal); I10 Essential (primary) hypertension; T81.89XA Other complications of procedures, not elsewhere classified, initial encounter; Y83.9 Surgical procedure, unspecified as the cause of abnormal reaction of the patient, or of later complication, without mention of misadventure at the time of the procedure; G47.30 Sleep apnea, unspecified; R06.00 Dyspnea, unspecified; G47.36 Sleep related hypoventilation in conditions classified elsewhere; Z95.1 Presence of aortocoronary bypass graft; F17.210 Nicotine dependence, cigarettes, uncomplicated | CPT/HCPCS: 99213 ==